=== PATIENT | female | born 1930 | race Caucasian/White ===

== ENCOUNTER 2019-11-24 22:39 | Inpatient (IN) | payer OTHER ==
[~2019-11-24] VITALS: Ht 154.9 cm; Wt 42.7 kg
[~2019-11-24 22:39] MED LIST: ALBU2.5V5 NEB; ALBU2.5V8 INH; HYDR200T5 PO; LEVO50TA5 PO; LOSA-73 PO; MELO7.5T29 PO; PRED1DRO OP
[2019-11-24 22:40] VITALS: BP 135/73
[2019-11-24] MEDS ORDERED: BENZOCAINE ONE 20% MUCOSAL SPRAY. MM (23:00)
--- NOTE | 2019-11-24 23:00 | NUR ---
ADMIT NOTE The patient, FREDY COLIN, 88 y/o, F admitted by SIRI ULLOA III, DO, was given written information regarding hospital policies, unit procedures and contact persons. Patient arrived to unit via EMS from [facility]. Patient afebrile, A&O, and VSS on admission. Patient denies pain at this time. MD notified of patient's arrival and orders received. Patient unable to tolerate NG tube placement at [facility] and MD aware of previous removal of NG tube. MD also notified that subsequent attempts were unsuccessful. Per MD orders, will attempt to place NG tube again. Patient orientated to room, admission packet reviewed and plan of care discussed. All valuables left in room with patient. Patient now in bed, bed in lowest/locked position, and call light within reach.
[2019-11-24] MEDS: IV RINGERS,LACTATED 1000ML 1,000 ML IV SCH (23:17)
--- NOTE | 2019-11-24 23:45 | NUR ---
Unable to insert NG tube in right nare due to resistance. Patient refused NG insertion in left nare claiming she, "...couldn't breath and almost " when it was placed at [facility]. Patient was educated on indication for NG tube and continues to refuse intervention.
[2019-11-25] MEDS ORDERED: hydrALAZINE 20 MG/ML VIAL. IVP PRN (00:45)
[2019-11-25] MEDS: ONDANSETRON PF 4 MG/2 ML VIAL. IVP PRN ×2 (01:45→06:31)
[2019-11-25] MEDS ORDERED: WHEA1POW8 PO (04:16)
[2019-11-25] MEDS ORDERED: OMEP20TA8 PO (04:16)
[2019-11-25] MEDS ORDERED: LEVO50TA5 PO (04:16)
--- NOTE | 2019-11-25 04:31 | NUR ---
Patient c/o nausea and requesting Zofran. This nurse checked eMAR and noted that previous administration of Zofran was not recorded. Zofran pulled from [employer] at approx. 0140 and given at 0145. Medication manually administered on eMAR for administration time of 0145 at this time as initial scan of medication not properly saved at administration time. Patient informed of next availability of medication, no other needs voiced at this time.
[2019-11-25 04:54] LABS: BASO # 0.1 x10^3/uL (0.0-0.2); BASO % 1 % (0-3); EOS # 0.1 x10^3/uL (0.0-0.7); EOS % 1 % (0-3); HEMATOCRIT 33.7 % (36.0-47.0); HEMOGLOBIN 11.6 g/dL (12.0-15.5); LYMPH # 1.8 x10^3/uL (1.0-4.8); LYMPH % 19 % (24-48); MEAN CORPUSCULAR HEMOGLOBIN 32 pg (25-35); MEAN CORPUSCULAR HGB CONC 34 g/dL (31-37); MEAN CORPUSCULAR VOLUME 92 fL (79-100); MONO # 0.6 x10^3/uL (0.0-1.1); MONO % 6 % (0-9); NEUT # 7.1 x10^3/uL (1.8-7.7); NEUT % 74 % (31-73); PLATELET COUNT 315 x10^3/uL (140-400); RED BLOOD COUNT 3.67 x10^6/uL (3.50-5.40); RED CELL DISTRIBUTION WIDTH 14.6 % (11.5-14.5); WHITE BLOOD COUNT 9.6 x10^3/uL (4.0-11.0)
[2019-11-25 05:39] LABS: ALBUMIN/GLOBULIN RATIO 0.8 (1.0-1.7); CALCIUM 8.9 mg/dL (8.5-10.1); CREATININE 2.3 mg/dL (0.6-1.0); GFR 20.1; POTASSIUM 4.9 mmol/L (3.5-5.1); TOTAL BILIRUBIN 0.3 mg/dL (0.2-1.0)
[2019-11-25 07:00] VITALS: BP 160/72
--- NOTE | 2019-11-25 07:48 | RAD ---
PROCEDURE: KUB STUDY DATE: 11/25/2019 CLINICAL INDICATION / HISTORY: Reason: SBO / Spl. Instructions: / History: . TECHNIQUE: Single AP image of the abdomen was obtained. COMPARISON: None FINDINGS: Lung bases show fibrotic changes, partially imaged. Nonspecific paucity of bowel gas is present with formed stool present in the large bowel including the rectal vault which is 5 cm in diameter on this exam, and dense material within multiple small bowel loops. There are gas-filled small bowel loops present that appear dilated in the left upper quadrant up to 4.1 cm in diameter. No free air. No organomegaly or pathologic calcifications are identified. No acute osseous abnormality. IMPRESSION: 1. Nonspecific bowel gas pattern showing possible evidence of low-grade small bowel obstruction. 2. Formed stool in the large bowel could reflect constipation in the appropriate clinical context. Electronically signed by: Marilu Dickinson MD (11/25/2019 7:45 AM) [id number]
[2019-11-25] MEDS: IV RINGERS,LACTATED 1000ML 1,000 ML IV SCH (08:43)
--- NOTE | 2019-11-25 09:29 | PDOC ---
GENERAL General: Patient examined chart reviewed from [facility] [place] [facility]. Patient was transferred there late yesterday with acute abdominal pain that started abruptly in the middle of the night now 24 hours ago. Full history and physical to follow. 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 She works at the [employer] in [place] but has had minimal contact with anyone except the five Sisters with whom she lives during the COVID pandemic. None of the other Sisters have been sick. Patient tells me that she awoke in the middle of the night over 24 hours ago with severe abdominal pain and projectile vomiting. 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 She was transferred to [facility] for surgica l consultation which is pending. Patient was found to have a creatinine of 2.7 on admission which is slightly improved with hydration overnight now at 2.3. She tells me that she has not had any history of renal failure. Dr. Koenig has been consulted and has assistance is appreciated. We will continue aggressive intravenous fluids and n.p.o. status until he can see her. We may need to consult nephrology depending on progress. We will need to hold home meds at this point. I have discussed CODE STATUS and she tells me that she is a full code. Patient speaks [place] but is mostly [place] Rican-speaking. We were able to communicate in my limited Costa Rican and her [place] as well. Problems: (1) Small bowel obstruction (2) Acute renal failure VITAL SIGNS Vital Signs/I&O: Vital Signs Date Time Temp Pulse Resp B/P (MAP) Pulse Ox O2 Delivery O2 Flow Rate FiO2 11/25/19 07:00 98.2 73 18 160/72 (101) 97 Room Air 98.2 l I & O 11/24/19 11/24/19 11/25/19 15:00 23:00 07:00 Intake Total 0 ml Balance 0 ml In general the patient is pleasant alert and oriented x3 no acute distress HEENT exam is unremarkable Chest bilateral equal air entry though diminished throughout inspiratory and expiratory crackles noted at the bilateral bases Heart S1-S2 normal regular rate and rhythm no murmurs or gallops are noted Abdomen is distended bowel sounds are nearly absent she is mildly tender throughout Extremity exam is unremarkable ALLERGIES Allergies: Allergies Coded Allergies Type Severity Reaction Last Updated Verified No Known Drug Allergies 10/26/14 No MEDS Medications: All medications were reviewed in full and may not be reflected on the active medication list in this progress note. Please see the medication administration record for full details. Current Medications Medications (Trade) Dose Ordered Sig/Evelia Route PRN Reason Start Time Stop Time Status Last Admin Dose Admin Ringer's Solution 1,000 ml @ 100 mls/hr Q10H IV 11/24/19 22:43 11/24/19 23:17 Ondansetron HCl (Zofran) 4 mg PRN Q4HRS PRN IVP NAUSEA/VOMITING 11/24/19 22:45 11/25/19 06:31 Benzocaine (Hurricaine One) 1 spray 1X ONCE MM 11/24/19 23:00 11/24/19 23:02 DC 11/24/19 23:17 LAB Lab: Laboratory Tests Test 11/25/19 03:40 White Blood Count 9.6 x10^3/uL (4.0-11.0) Red Blood Count 3.67 x10^6/uL (3.50-5.40) Hemoglobin 11.6 g/dL (12.0-15.5) L Hematocrit 33.7 % (36.0-47.0) L Mean Corpuscular Volume 92 fL (79-100) Mean Corpuscular Hemoglobin 32 pg (25-35) Mean Corpuscular Hemoglobin Concent 34 g/dL (31-37) Red Cell Distribution Width 14.6 % (11.5-14.5) H Platelet Count 315 x10^3/uL (140-400) Neutrophils (%) (Auto) 74 % (31-73) H Lymphocytes (%) (Auto) 19 % (24-48) L Monocytes (%) (Auto) 6 % (0-9) Eosinophils (%) (Auto) 1 % (0-3) Basophils (%) (Auto) 1 % (0-3) Neutrophils # (Auto) 7.1 x10^3/uL (1.8-7.7) Lymphocytes # (Auto) 1.8 x10^3/uL (1.0-4.8) Monocytes # (Auto) 0.6 x10^3/uL (0.0-1.1) Eosinophils # (Auto) 0.1 x10^3/uL (0.0-0.7) Basophils # (Auto) 0.1 x10^3/uL (0.0-0.2) Sodium Level 138 mmol/L (136-145) Potassium Level 4.9 mmol/L (3.5-5.1) Chloride Level 104 mmol/L (98-107) Carbon Dioxide Level 22 mmol/L (21-32) Anion Gap 12 (6-14) Blood Urea Nitrogen 44 mg/dL (7-20) H Creatinine 2.3 mg/dL (0.6-1.0) H Estimated GFR (Cockcroft-Gault) 20.1 BUN/Creatinine Ratio 19 (6-20) Glucose Level 108 mg/dL (70-99) H Calcium Level 8.9 mg/dL (8.5-10.1) Magnesium Level 2.0 mg/dL (1.8-2.4) Total Bilirubin 0.3 mg/dL (0.2-1.0) Aspartate Amino Transferase (AST) 18 U/L (15-37) Alanine Aminotransferase (ALT) 9 U/L (14-59) L Alkaline Phosphatase 94 U/L (46-116) Total Protein 7.0 g/dL (6.4-8.2) Albumin 3.0 g/dL (3.4-5.0) L Albumin/Globulin Ratio 0.8 (1.0-1.7) L Laboratory Tests 11/25/19 03:40 Laboratory Tests 11/25/19 03:40 ASSESSMENT & PLAN A&P Plan as noted above This note was created using Rdio and may have omissions and/or errors due to the nature of 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 Justicifation of Admission Dx: Justifications for Admission: Justification of Admission Dx: Yes ARGELIA MCGOWAN MD Nov 25, 2019 09:29
[2019-11-25] MEDS ORDERED: IV NORMAL SALINE 1000ML BAG 1,000 ML IV ONE (09:30)
[2019-11-25] MEDS: MORPHINE SULFATE 2 MG/ML VIAL. IV PRN ×2 (10:04→22:09)
[2019-11-25 11:00] VITALS: BP 138/70
--- NOTE | 2019-11-25 11:26 | PDOC2 ---
CONSULT Date of Consult Date of Consult DATE: 11/25/19 TIME: 11:22 Reason for Consult Reason for Consult: SBO Referring Physician Referring Physician: Dr. Guevara Identification/Chief Complaint Chief Complaint abd pain Source Source: Chart review, Patient History of Present Illness Reason for Visit: 88 yo F with c/o abd pain. Admitted from [facility]. NGT attempted but self d/c'ed. Pt denies flatus or stool currently. Pain tolerated, although pt not interested in pain meds. Past Medical History Cardiovascular: Hyperlipidemia Pulmonary: Other (pulm fibrosis) Heme/Onc: Anemia NOS Past Surgical History Past Surgical History: Other (pt reports groin hernia repair, lower abd surgery scar c/w hysterectomy and uterus not confidently seen on imaging.) Family History Family History: No Significant Social History No ALCOHOL: none Drugs: None Lives: Roommate Current Medications Current Medications Current Medications Ringer's Solution 1,000 ml @ 100 mls/hr Q10H IV Last administered on 11/24/19at 23:17; Start 11/24/19 at 22:43 Ondansetron HCl (Zofran) 4 mg PRN Q4HRS PRN IVP NAUSEA/VOMITING Last administered on 11/25/19at 06:31; Start 11/24/19 at 22:45 Morphine Sulfate (Morphine Sulfate) 2 mg PRN Q3HRS PRN IV PAIN Last administered on 11/25/19at 10:04; Start 11/24/19 at 22:45 Benzocaine (Hurricaine One) 1 spray 1X ONCE MM Last administered on 11/24/19at 23:17; Start 11/24/19 at 23:00; Stop 11/24/19 at 23:02; Status DC Hydralazine HCl (Apresoline Inj) 5 mg PRN Q6HRS PRN IVP ELEVATED BP, SEE COMMENTS; Start 11/25/19 at 00:45 Sodium Chloride 1,000 ml @ 125 mls/hr 1X ONCE IV Last administered on 11/25/19at 10:03; Start 11/25/19 at 09:30; Stop 11/25/19 at 17:29 Active Scripts Active Reported Omeprazole 20 Mg Tablet.dr 1 Tab PO DAILY Levothyroxine Sodium 50 Mcg Tablet 50 Mcg PO DAILYAC Benefiber (Wheat Dextrin) 1 Each Powd.pack 1 Each PO BID Albuterol Sulfate Neb Soln (Albuterol Sulfate) 2.5 Mg/3 Ml Vial.neb 2.5 Mg NEB Pred Forte (Prednisolone Acetate) 1 Ml Drops.susp 1 Ml OP Proair Hfa Inhaler (Albuterol Sulfate) 8.5 Gm Hfa.aer.ad 1 Puff INH PRN Q6HRS PRN Losartan Potassium 50 Mg Tablet 1 Tab PO DAILY Hydroxychloroquine Sulfate 200 Mg Tablet 200 Mg PO DAILY Levothyroxine Sodium 50 Mcg Tablet 1 Tab PO DAILY Meloxicam 7.5 Mg Tablet 1 Tab PO DAILY Allergies Allergies: Coded Allergies: No Known Drug Allergies (Unverified , 10/26/14) ROS Gastrointestinal: Yes Abdominal Pain Physical Exam General: Alert, Oriented X3, Cooperative, No acute distress HEENT: Atraumatic Lungs: Normal air movement Abdomen: Soft, Other (ND, min TTP, well healed lower midline scar, no palpable masses or hernia) Extremities: No clubbing, No cyanosis Skin: No rashes, No breakdown Psych/Mental Status: Mental status NL, Mood NL Vitals VITALS Vital Signs Date Time Temp Pulse Resp B/P (MAP) Pulse Ox O2 Delivery O2 Flow Rate FiO2 11/25/19 10:34 Room Air 11/25/19 07:00 98.2 73 18 160/72 (101) 97 98.2 Labs Labs Laboratory Tests Test 11/25/19 03:40 White Blood Count 9.6 x10^3/uL (4.0-11.0) Red Blood Count 3.67 x10^6/uL (3.50-5.40) Hemoglobin 11.6 g/dL (12.0-15.5) Hematocrit 33.7 % (36.0-47.0) Mean Corpuscular Volume 92 fL (79-100) Mean Corpuscular Hemoglobin 32 pg (25-35) Mean Corpuscular Hemoglobin Concent 34 g/dL (31-37) Red Cell Distribution Width 14.6 % (11.5-14.5) Platelet Count 315 x10^3/uL (140-400) Neutrophils (%) (Auto) 74 % (31-73) Lymphocytes (%) (Auto) 19 % (24-48) Monocytes (%) (Auto) 6 % (0-9) Eosinophils (%) (Auto) 1 % (0-3) Basophils (%) (Auto) 1 % (0-3) Neutrophils # (Auto) 7.1 x10^3/uL (1.8-7.7) Lymphocytes # (Auto) 1.8 x10^3/uL (1.0-4.8) Monocytes # (Auto) 0.6 x10^3/uL (0.0-1.1) Eosinophils # (Auto) 0.1 x10^3/uL (0.0-0.7) Basophils # (Auto) 0.1 x10^3/uL (0.0-0.2) Sodium Level 138 mmol/L (136-145) Potassium Level 4.9 mmol/L (3.5-5.1) Chloride Level 104 mmol/L (98-107) Carbon Dioxide Level 22 mmol/L (21-32) Anion Gap 12 (6-14) Blood Urea Nitrogen 44 mg/dL (7-20) Creatinine 2.3 mg/dL (0.6-1.0) Estimated GFR (Cockcroft-Gault) 20.1 BUN/Creatinine Ratio 19 (6-20) Glucose Level 108 mg/dL (70-99) Calcium Level 8.9 mg/dL (8.5-10.1) Magnesium Level 2.0 mg/dL (1.8-2.4) Total Bilirubin 0.3 mg/dL (0.2-1.0) Aspartate Amino Transf (AST/SGOT) 18 U/L (15-37) Alanine Aminotransferase (ALT/SGPT) 9 U/L (14-59) Alkaline Phosphatase 94 U/L (46-116) Total Protein 7.0 g/dL (6.4-8.2) Albumin 3.0 g/dL (3.4-5.0) Albumin/Globulin Ratio 0.8 (1.0-1.7) Laboratory Tests Test 11/25/19 03:40 White Blood Count 9.6 x10^3/uL (4.0-11.0) Red Blood Count 3.67 x10^6/uL (3.50-5.40) Hemoglobin 11.6 g/dL (12.0-15.5) Hematocrit 33.7 % (36.0-47.0) Mean Corpuscular Volume 92 fL (79-100) Mean Corpuscular Hemoglobin 32 pg (25-35) Mean Corpuscular Hemoglobin Concent 34 g/dL (31-37) Red Cell Distribution Width 14.6 % (11.5-14.5) Platelet Count 315 x10^3/uL (140-400) Neutrophils (%) (Auto) 74 % (31-73) Lymphocytes (%) (Auto) 19 % (24-48) Monocytes (%) (Auto) 6 % (0-9) Eosinophils (%) (Auto) 1 % (0-3) Basophils (%) (Auto) 1 % (0-3) Neutrophils # (Auto) 7.1 x10^3/uL (1.8-7.7) Lymphocytes # (Auto) 1.8 x10^3/uL (1.0-4.8) Monocytes # (Auto) 0.6 x10^3/uL (0.0-1.1) Eosinophils # (Auto) 0.1 x10^3/uL (0.0-0.7) Basophils # (Auto) 0.1 x10^3/uL (0.0-0.2) Sodium Level 138 mmol/L (136-145) Potassium Level 4.9 mmol/L (3.5-5.1) Chloride Level 104 mmol/L (98-107) Carbon Dioxide Level 22 mmol/L (21-32) Anion Gap 12 (6-14) Blood Urea Nitrogen 44 mg/dL (7-20) Creatinine 2.3 mg/dL (0.6-1.0) Estimated GFR (Cockcroft-Gault) 20.1 BUN/Creatinine Ratio 19 (6-20) Glucose Level 108 mg/dL (70-99) Calcium Level 8.9 mg/dL (8.5-10.1) Magnesium Level 2.0 mg/dL (1.8-2.4) Total Bilirubin 0.3 mg/dL (0.2-1.0) Aspartate Amino Transf (AST/SGOT) 18 U/L (15-37) Alanine Aminotransferase (ALT/SGPT) 9 U/L (14-59) Alkaline Phosphatase 94 U/L (46-116) Total Protein 7.0 g/dL (6.4-8.2) Albumin 3.0 g/dL (3.4-5.0) Albumin/Globulin Ratio 0.8 (1.0-1.7) Images Images Reviewed [facility]'s CT, c/w SBO vs ileus and constipation. Assessment/Plan Assessment/Plan SBO vs ileus cont bowel rest and support follow KUB will attempt to avoid surgery, given pt's overall fragility and malnutrition given BMI Thanks for consult! ANDREW LINTON MD Nov 25, 2019 11:26
[2019-11-25 15:00] VITALS: BP 154/74
[2019-11-25 19:00] VITALS: BP 140/62
--- NOTE | 2019-11-25 19:42 | HP ---
ADMIT DATE: 11/24/2019 HISTORY OF PRESENT ILLNESS: This patient is a dm 88-year-old woman whom I met earlier today. The details of our visit can be found in a progress note dated earlier this morning. 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 She enjoys good health for her advanced years. She continues to work at the [email or web address] in [place], but has had minimal contact with anyone except the 5 nuns with whom she lives during this COVID pandemic. None of the other Sisters have been ill. The patient told me that she awoke in the middle of the night over 24 hours ago with severe mid abdominal pain and projectile vomiting. She presented to the [facility] Emergency Department for evaluation and was found to have small bowel obstruction. She was transferred to [facility] late yesterday evening for surgical consultation. That was pending at the time of our visit earlier today. Earlier today, she was having quite a bit of abdominal bloating and discomfort, but otherwise did feel that she was making some improvement. She was hoping to get away without NG tube decompression. The patient was also found on admission to have acute renal failure with a creatinine of 2.7, which had improved overnight to 2.3 with intravenous hydration. The patient denied any history of renal failure. The patient tells me that prior to the last 24-48 hours, she was feeling at her vigorous baseline. She follows with a physician classroom assistant, Mili Jang, with [facility] in [place]. She sees her regularly and has labs done routinely. REVIEW OF SYSTEMS: The patient denied any urinary changes, fever, chills, cough, congestion, chest pain, palpitations, or shortness of breath. All other systems reviewed and negative. PAST MEDICAL HISTORY: 1. Inflammatory arthritis. 2. Hypothyroidism. 3. Hypertension. 4. Gastroesophageal reflux disease. The patient denies any history of abdominal surgeries or acute abdominal complaints at all. MEDICATIONS: Please see the medication reconciliation form. 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 She does not smoke, take alcohol, or illicit drugs. FAMILY HISTORY: Reviewed in full and noncontributory to the present illness. PHYSICAL EXAMINATION: Including vital signs review can be found in my progress note dated earlier today. LABORATORY DATA: Lab review as well can be found in that same note. Creatinine this morning notably was 2.3 and will be rechecked in the morning. ASSESSMENT AND PLAN: This is an 88-year-old woman with abrupt onset of abdominal pain, found to have small bowel obstruction and on the [facility] CAT scan image, question of superior mesenteric artery stenosis. She also was noted to have significant coronary calcifications. The vascular findings are unlikely to be related to her acute presentation, though certainly need to be addressed. We will hold her oral home medications while she is on a nothing by mouth status. She may have SCDs for DVT prophylaxis. Inpatient status is most appropriate as we anticipate a length of stay of at least 2-3 midnights while we work this through. Dr. Hadley has visited with the patient since my initial visit and his assistance is appreciated. Hopefully, we will be able to avoid surgical intervention. ARGELIA MCGOWAN MD DR: CYNTHIA/lou JOB#: [id number] / [id number] MILI Sousa
[2019-11-25] MEDS: IV NORMAL SALINE 1000ML BAG 1,000 ML IV SCH (22:09)
[2019-11-25 23:00] VITALS: BP 133/65
[2019-11-26] MEDS: MORPHINE SULFATE 2 MG/ML VIAL. IV PRN ×4 (01:48→21:08)
[2019-11-26 03:00] VITALS: BP 141/63
[2019-11-26 04:57] LABS: BASO # 0.1 x10^3/uL (0.0-0.2); BASO % 1 % (0-3); EOS # 0.1 x10^3/uL (0.0-0.7); EOS % 1 % (0-3); HEMATOCRIT 31.6 % (36.0-47.0); HEMOGLOBIN 10.6 g/dL (12.0-15.5); LYMPH # 2.3 x10^3/uL (1.0-4.8); LYMPH % 25 % (24-48); MEAN CORPUSCULAR HEMOGLOBIN 31 pg (25-35); MEAN CORPUSCULAR HGB CONC 34 g/dL (31-37); MEAN CORPUSCULAR VOLUME 94 fL (79-100); MONO # 0.5 x10^3/uL (0.0-1.1); MONO % 6 % (0-9); NEUT # 6.3 x10^3/uL (1.8-7.7); NEUT % 68 % (31-73); PLATELET COUNT 288 x10^3/uL (140-400); RED BLOOD COUNT 3.38 x10^6/uL (3.50-5.40); RED CELL DISTRIBUTION WIDTH 14.9 % (11.5-14.5); WHITE BLOOD COUNT 9.4 x10^3/uL (4.0-11.0)
[2019-11-26 05:21] LABS: ALBUMIN 2.5 g/dL (3.4-5.0); ALBUMIN/GLOBULIN RATIO 0.7 (1.0-1.7); CALCIUM 8.3 mg/dL (8.5-10.1); CREATININE 2.2 mg/dL (0.6-1.0); GFR 21.1; TOTAL BILIRUBIN 0.3 mg/dL (0.2-1.0); TOTAL PROTEIN 6.1 g/dL (6.4-8.2)
[2019-11-26] MEDS: IV NORMAL SALINE 1000ML BAG 1,000 ML IV SCH ×2 (05:58→15:30)
[2019-11-26 07:00] VITALS: BP 121/56
--- NOTE | 2019-11-26 09:21 | RAD ---
EXAM: KUB, CHEST PA LATERAL INDICATION: Reason: SBO / Spl. Instructions: / History: . TECHNIQUE: PA and lateral views COMPARISON: Portable chest of 10/26/2014 FINDINGS: The heart size is normal. Great vessels show aortic tortuosity and calcifications. There is no hilar or mediastinal mass. Lungs show interval worsening of coarse reticular densities in the bilateral lower lobes, more conspicuous on the right. There is no pleural effusion or pneumothorax. Bones show osteopenia and degenerative changes in the spine as well as a suture anchor in the right humeral head. Included upper abdomen shows dynamic air-fluid levels in gas-filled distended small bowel loops in the left upper quadrant primarily. IMPRESSION: Worsening bibasilar pulmonary fibrotic changes, more on the right than on the left. Additional findings of small bowel obstruction in the upper abdomen. PROCEDURE: KUB, CHEST PA LATERAL STUDY DATE: 11/26/2019 CLINICAL INDICATION / HISTORY: Reason: SBO / Spl. Instructions: / History: . TECHNIQUE: Single supine AP image of the abdomen was obtained. COMPARISON: 11/25/2019 abdomen x-ray. FINDINGS: The lung bases are clear. There persists multiple small bowel loops containing dense material, and gas-filled mildly distended small bowel loops in the left upper quadrant abdomen. Formed stool in the rectal vault. No free air. No organomegaly or pathologic calcifications are identified. No acute osseous abnormality. IMPRESSION: Findings of small bowel obstruction without perforation, unchanged in the interval. Electronically signed by: Marilu Dickinson MD (11/26/2019 9:18 AM) [id number]
--- NOTE | 2019-11-26 09:44 | PDOC ---
PROGRESS NOTES Chief Complaint Chief Complaint A/P: SBO - cont NPO, pain control IV, f/u surgery recs BRITTANI - vasomotor nephropathy Severe protein calorie malnutrition Hypothyroidism - IV HTN GERD Coronary artery calcification Bibasilar pulmonary fibrotic changes on chest x-ray FEN - NPO PPX - Lovenox FULL CODE Dispo - inpatient History of Present Illness History of Present Illness Sr Al is an 88 yo Sister of Idania and lives with her community in [place] w/ PMHx GERD, Hypothyroidism, HTN. She awoke in the middle of the night 11/24/2019 with severe mid abdominal pain and projectile vomiting. She presented to the [facility] Emergency Department for evaluation and was found to have small bowel obstruction and transferred to . Creatinine noted 2.7, which had improved overnight to 2.3 with intravenous hydration. The patient denied any history of renal failure. CR improved to 2.2. No vomiting overnight still with pain states she passed gas. Now has some left-sided back pain was not able to sleep well. Afebrile no shortness of breath or cough. KUB with SBO. CXR with worsening basilar fibrotic changes. Vitals Vitals Vital Signs Date Time Temp Pulse Resp B/P (MAP) Pulse Ox O2 Delivery O2 Flow Rate FiO2 11/26/19 09:31 Room Air 11/26/19 07:00 98.1 80 18 121/56 (77) 96 98.1 Physical Exam General: Alert, Oriented X3, Cooperative, No acute distress Heart: Regular rate, Normal S1, Normal S2 Lungs: Clear Abdomen: Soft, Other (ND, min TTP, well healed lower midline scar, no palpable masses or hernia) Extremities: No clubbing, No cyanosis Skin: No rashes, No breakdown Labs LABS Laboratory Tests Test 11/26/19 04:10 White Blood Count 9.4 x10^3/uL (4.0-11.0) Red Blood Count 3.38 x10^6/uL (3.50-5.40) Hemoglobin 10.6 g/dL (12.0-15.5) Hematocrit 31.6 % (36.0-47.0) Mean Corpuscular Volume 94 fL (79-100) Mean Corpuscular Hemoglobin 31 pg (25-35) Mean Corpuscular Hemoglobin Concent 34 g/dL (31-37) Red Cell Distribution Width 14.9 % (11.5-14.5) Platelet Count 288 x10^3/uL (140-400) Neutrophils (%) (Auto) 68 % (31-73) Lymphocytes (%) (Auto) 25 % (24-48) Monocytes (%) (Auto) 6 % (0-9) Eosinophils (%) (Auto) 1 % (0-3) Basophils (%) (Auto) 1 % (0-3) Neutrophils # (Auto) 6.3 x10^3/uL (1.8-7.7) Lymphocytes # (Auto) 2.3 x10^3/uL (1.0-4.8) Monocytes # (Auto) 0.5 x10^3/uL (0.0-1.1) Eosinophils # (Auto) 0.1 x10^3/uL (0.0-0.7) Basophils # (Auto) 0.1 x10^3/uL (0.0-0.2) Sodium Level 141 mmol/L (136-145) Potassium Level 5.0 mmol/L (3.5-5.1) Chloride Level 107 mmol/L (98-107) Carbon Dioxide Level 18 mmol/L (21-32) Anion Gap 16 (6-14) Blood Urea Nitrogen 43 mg/dL (7-20) Creatinine 2.2 mg/dL (0.6-1.0) Estimated GFR (Cockcroft-Gault) 21.1 BUN/Creatinine Ratio 20 (6-20) Glucose Level 58 mg/dL (70-99) Calcium Level 8.3 mg/dL (8.5-10.1) Total Bilirubin 0.3 mg/dL (0.2-1.0) Aspartate Amino Transf (AST/SGOT) 21 U/L (15-37) Alanine Aminotransferase (ALT/SGPT) 8 U/L (14-59) Alkaline Phosphatase 79 U/L (46-116) Total Protein 6.1 g/dL (6.4-8.2) Albumin 2.5 g/dL (3.4-5.0) Albumin/Globulin Ratio 0.7 (1.0-1.7) Comment Review of Relevant I have reviewed the following items mercedes (where applicable) has been applied. Labs Laboratory Tests Test 11/25/19 03:40 7/12/20 04:10 White Blood Count 9.6 x10^3/uL (4.0-11.0) 9.4 x10^3/uL (4.0-11.0) Red Blood Count 3.67 x10^6/uL (3.50-5.40) 3.38 x10^6/uL (3.50-5.40) Hemoglobin 11.6 g/dL (12.0-15.5) 10.6 g/dL (12.0-15.5) Hematocrit 33.7 % (36.0-47.0) 31.6 % (36.0-47.0) Mean Corpuscular Volume 92 fL (79-100) 94 fL (79-100) Mean Corpuscular Hemoglobin 32 pg (25-35) 31 pg (25-35) Mean Corpuscular Hemoglobin Concent 34 g/dL (31-37) 34 g/dL (31-37) Red Cell Distribution Width 14.6 % (11.5-14.5) 14.9 % (11.5-14.5) Platelet Count 315 x10^3/uL (140-400) 288 x10^3/uL (140-400) Neutrophils (%) (Auto) 74 % (31-73) 68 % (31-73) Lymphocytes (%) (Auto) 19 % (24-48) 25 % (24-48) Monocytes (%) (Auto) 6 % (0-9) 6 % (0-9) Eosinophils (%) (Auto) 1 % (0-3) 1 % (0-3) Basophils (%) (Auto) 1 % (0-3) 1 % (0-3) Neutrophils # (Auto) 7.1 x10^3/uL (1.8-7.7) 6.3 x10^3/uL (1.8-7.7) Lymphocytes # (Auto) 1.8 x10^3/uL (1.0-4.8) 2.3 x10^3/uL (1.0-4.8) Monocytes # (Auto) 0.6 x10^3/uL (0.0-1.1) 0.5 x10^3/uL (0.0-1.1) Eosinophils # (Auto) 0.1 x10^3/uL (0.0-0.7) 0.1 x10^3/uL (0.0-0.7) Basophils # (Auto) 0.1 x10^3/uL (0.0-0.2) 0.1 x10^3/uL (0.0-0.2) Sodium Level 138 mmol/L (136-145) 141 mmol/L (136-145) Potassium Level 4.9 mmol/L (3.5-5.1) 5.0 mmol/L (3.5-5.1) Chloride Level 104 mmol/L (98-107) 107 mmol/L (98-107) Carbon Dioxide Level 22 mmol/L (21-32) 18 mmol/L (21-32) Anion Gap 12 (6-14) 16 (6-14) Blood Urea Nitrogen 44 mg/dL (7-20) 43 mg/dL (7-20) Creatinine 2.3 mg/dL (0.6-1.0) 2.2 mg/dL (0.6-1.0) Estimated GFR (Cockcroft-Gault) 20.1 21.1 BUN/Creatinine Ratio 19 (6-20) 20 (6-20) Glucose Level 108 mg/dL (70-99) 58 mg/dL (70-99) Calcium Level 8.9 mg/dL (8.5-10.1) 8.3 mg/dL (8.5-10.1) Magnesium Level 2.0 mg/dL (1.8-2.4) Total Bilirubin 0.3 mg/dL (0.2-1.0) 0.3 mg/dL (0.2-1.0) Aspartate Amino Transf (AST/SGOT) 18 U/L (15-37) 21 U/L (15-37) Alanine Aminotransferase (ALT/SGPT) 9 U/L (14-59) 8 U/L (14-59) Alkaline Phosphatase 94 U/L (46-116) 79 U/L (46-116) Total Protein 7.0 g/dL (6.4-8.2) 6.1 g/dL (6.4-8.2) Albumin 3.0 g/dL (3.4-5.0) 2.5 g/dL (3.4-5.0) Albumin/Globulin Ratio 0.8 (1.0-1.7) 0.7 (1.0-1.7) Laboratory Tests Test 11/26/19 04:10 White Blood Count 9.4 x10^3/uL (4.0-11.0) Red Blood Count 3.38 x10^6/uL (3.50-5.40) Hemoglobin 10.6 g/dL (12.0-15.5) Hematocrit 31.6 % (36.0-47.0) Mean Corpuscular Volume 94 fL (79-100) Mean Corpuscular Hemoglobin 31 pg (25-35) Mean Corpuscular Hemoglobin Concent 34 g/dL (31-37) Red Cell Distribution Width 14.9 % (11.5-14.5) Platelet Count 288 x10^3/uL (140-400) Neutrophils (%) (Auto) 68 % (31-73) Lymphocytes (%) (Auto) 25 % (24-48) Monocytes (%) (Auto) 6 % (0-9) Eosinophils (%) (Auto) 1 % (0-3) Basophils (%) (Auto) 1 % (0-3) Neutrophils # (Auto) 6.3 x10^3/uL (1.8-7.7) Lymphocytes # (Auto) 2.3 x10^3/uL (1.0-4.8) Monocytes # (Auto) 0.5 x10^3/uL (0.0-1.1) Eosinophils # (Auto) 0.1 x10^3/uL (0.0-0.7) Basophils # (Auto) 0.1 x10^3/uL (0.0-0.2) Sodium Level 141 mmol/L (136-145) Potassium Level 5.0 mmol/L (3.5-5.1) Chloride Level 107 mmol/L (98-107) Carbon Dioxide Level 18 mmol/L (21-32) Anion Gap 16 (6-14) Blood Urea Nitrogen 43 mg/dL (7-20) Creatinine 2.2 mg/dL (0.6-1.0) Estimated GFR (Cockcroft-Gault) 21.1 BUN/Creatinine Ratio 20 (6-20) Glucose Level 58 mg/dL (70-99) Calcium Level 8.3 mg/dL (8.5-10.1) Total Bilirubin 0.3 mg/dL (0.2-1.0) Aspartate Amino Transf (AST/SGOT) 21 U/L (15-37) Alanine Aminotransferase (ALT/SGPT) 8 U/L (14-59) Alkaline Phosphatase 79 U/L (46-116) Total Protein 6.1 g/dL (6.4-8.2) Albumin 2.5 g/dL (3.4-5.0) Albumin/Globulin Ratio 0.7 (1.0-1.7) Medications Current Medications Ringer's Solution 1,000 ml @ 100 mls/hr Q10H IV Last administered on 11/24/19at 23:17; Start 11/24/19 at 22:43; Stop 11/25/19 at 19:26; Status DC Ondansetron HCl (Zofran) 4 mg PRN Q4HRS PRN IVP NAUSEA/VOMITING Last administered on 11/25/19at 06:31; Start 11/24/19 at 22:45 Morphine Sulfate (Morphine Sulfate) 2 mg PRN Q3HRS PRN IV PAIN Last administered on 11/26/19at 09:31; Start 11/24/19 at 22:45 Benzocaine (Hurricaine One) 1 spray 1X ONCE MM Last administered on 11/24/19at 23:17; Start 11/24/19 at 23:00; Stop 11/24/19 at 23:02; Status DC Hydralazine HCl (Apresoline Inj) 5 mg PRN Q6HRS PRN IVP ELEVATED BP, SEE COMMENTS; Start 11/25/19 at 00:45 Sodium Chloride 1,000 ml @ 125 mls/hr 1X ONCE IV Last administered on 11/25/19at 10:03; Start 11/25/19 at 09:30; Stop 11/25/19 at 17:29; Status DC Sodium Chloride 1,000 ml @ 100 mls/hr Q10H IV Last administered on 11/26/19at 05:58; Start 11/25/19 at 19:30 Lidocaine (Lidoderm) 1 patch DAILY TD ; Start 11/26/19 at 09:45; Status UNV Miscellaneous (Lidoderm Patch Removal) 1 ea QHS MC ; Start 11/26/19 at 21:00; Status UNV Active Scripts Active Reported Omeprazole 20 Mg Tablet.dr 1 Tab PO DAILY Levothyroxine Sodium 50 Mcg Tablet 50 Mcg PO DAILYAC Benefiber (Wheat Dextrin) 1 Each Powd.pack 1 Each PO BID Albuterol Sulfate Neb Soln (Albuterol Sulfate) 2.5 Mg/3 Ml Vial.neb 2.5 Mg NEB Pred Forte (Prednisolone Acetate) 1 Ml Drops.susp 1 Ml OP Proair Hfa Inhaler (Albuterol Sulfate) 8.5 Gm Hfa.aer.ad 1 Puff INH PRN Q6HRS PRN Losartan Potassium 50 Mg Tablet 1 Tab PO DAILY Hydroxychloroquine Sulfate 200 Mg Tablet 200 Mg PO DAILY Levothyroxine Sodium 50 Mcg Tablet 1 Tab PO DAILY Meloxicam 7.5 Mg Tablet 1 Tab PO DAILY Vitals/I & O Vital Sign - Last 24 Hours 11/25/19 11/25/19 11/25/19 11/25/19 10:04 10:34 11:00 15:00 Temp 97.9 97.7 97.9 97.7 Pulse 69 72 Resp 18 18 B/P (MAP) 138/70 (92) 154/74 (100) Pulse Ox 98 98 O2 Delivery Room Air Room Air Room Air Room Air 11/25/19 11/25/19 11/25/19 11/25/19 19:00 20:00 22:09 22:39 Temp 98.6 98.6 Pulse 80 Resp 18 B/P (MAP) 140/62 (88) Pulse Ox 95 O2 Delivery Room Air Room Air Room Air Room Air 11/25/19 11/26/19 11/26/19 11/26/19 23:00 01:48 02:18 03:00 Temp 98.5 98.7 98.5 98.7 Pulse 87 73 Resp 18 18 B/P (MAP) 133/65 (87) 141/63 (89) Pulse Ox 95 94 O2 Delivery Room Air Room Air Room Air Room Air 11/26/19 11/26/19 11/26/19 11/26/19 05:58 06:28 07:00 09:31 Temp 98.1 98.1 Pulse 80 Resp 18 B/P (MAP) 121/56 (77) Pulse Ox 96 O2 Delivery Room Air Room Air Room Air Room Air Intake and Output 11/25/19 11/25/19 11/26/19 15:00 23:00 07:00 Intake Total 0 ml Balance 0 ml Justicifation of Admission Dx: Justifications for Admission: Justification of Admission Dx: Yes VANITA LU MD Nov 26, 2019 09:44
[2019-11-26] MEDS ORDERED: ALBUTEROL SULFATE 2.5 MG/3 ML NEBU. INH PRN (09:45)
[2019-11-26 11:00] VITALS: BP 120/56
--- NOTE | 2019-11-26 11:50 | PDOC ---
SURGICAL PROGRESS NOTE Subjective Pt feels better, no N/V today, mild pain left upper flank Vital Signs Vital Signs Date Time Temp Pulse Resp B/P (MAP) Pulse Ox O2 Delivery O2 Flow Rate FiO2 11/26/19 11:00 98.2 80 18 120/56 (77) 96 Room Air 98.2 I&O Intake and Output 11/26/19 07:00 Intake Total 0 ml Balance 0 ml Intake Oral 0 ml # Voids 3 General: Alert, Oriented X3, Cooperative, No acute distress Abdomen: Soft, No tenderness Labs Laboratory Tests Test 11/25/19 03:40 11/26/19 04:10 White Blood Count 9.6 x10^3/uL (4.0-11.0) 9.4 x10^3/uL (4.0-11.0) Red Blood Count 3.67 x10^6/uL (3.50-5.40) 3.38 x10^6/uL (3.50-5.40) Hemoglobin 11.6 g/dL (12.0-15.5) 10.6 g/dL (12.0-15.5) Hematocrit 33.7 % (36.0-47.0) 31.6 % (36.0-47.0) Mean Corpuscular Volume 92 fL (79-100) 94 fL (79-100) Mean Corpuscular Hemoglobin 32 pg (25-35) 31 pg (25-35) Mean Corpuscular Hemoglobin Concent 34 g/dL (31-37) 34 g/dL (31-37) Red Cell Distribution Width 14.6 % (11.5-14.5) 14.9 % (11.5-14.5) Platelet Count 315 x10^3/uL (140-400) 288 x10^3/uL (140-400) Neutrophils (%) (Auto) 74 % (31-73) 68 % (31-73) Lymphocytes (%) (Auto) 19 % (24-48) 25 % (24-48) Monocytes (%) (Auto) 6 % (0-9) 6 % (0-9) Eosinophils (%) (Auto) 1 % (0-3) 1 % (0-3) Basophils (%) (Auto) 1 % (0-3) 1 % (0-3) Neutrophils # (Auto) 7.1 x10^3/uL (1.8-7.7) 6.3 x10^3/uL (1.8-7.7) Lymphocytes # (Auto) 1.8 x10^3/uL (1.0-4.8) 2.3 x10^3/uL (1.0-4.8) Monocytes # (Auto) 0.6 x10^3/uL (0.0-1.1) 0.5 x10^3/uL (0.0-1.1) Eosinophils # (Auto) 0.1 x10^3/uL (0.0-0.7) 0.1 x10^3/uL (0.0-0.7) Basophils # (Auto) 0.1 x10^3/uL (0.0-0.2) 0.1 x10^3/uL (0.0-0.2) Sodium Level 138 mmol/L (136-145) 141 mmol/L (136-145) Potassium Level 4.9 mmol/L (3.5-5.1) 5.0 mmol/L (3.5-5.1) Chloride Level 104 mmol/L (98-107) 107 mmol/L (98-107) Carbon Dioxide Level 22 mmol/L (21-32) 18 mmol/L (21-32) Anion Gap 12 (6-14) 16 (6-14) Blood Urea Nitrogen 44 mg/dL (7-20) 43 mg/dL (7-20) Creatinine 2.3 mg/dL (0.6-1.0) 2.2 mg/dL (0.6-1.0) Estimated GFR (Cockcroft-Gault) 20.1 21.1 BUN/Creatinine Ratio 19 (6-20) 20 (6-20) Glucose Level 108 mg/dL (70-99) 58 mg/dL (70-99) Calcium Level 8.9 mg/dL (8.5-10.1) 8.3 mg/dL (8.5-10.1) Magnesium Level 2.0 mg/dL (1.8-2.4) Total Bilirubin 0.3 mg/dL (0.2-1.0) 0.3 mg/dL (0.2-1.0) Aspartate Amino Transf (AST/SGOT) 18 U/L (15-37) 21 U/L (15-37) Alanine Aminotransferase (ALT/SGPT) 9 U/L (14-59) 8 U/L (14-59) Alkaline Phosphatase 94 U/L (46-116) 79 U/L (46-116) Total Protein 7.0 g/dL (6.4-8.2) 6.1 g/dL (6.4-8.2) Albumin 3.0 g/dL (3.4-5.0) 2.5 g/dL (3.4-5.0) Albumin/Globulin Ratio 0.8 (1.0-1.7) 0.7 (1.0-1.7) Laboratory Tests Test 11/26/19 04:10 White Blood Count 9.4 x10^3/uL (4.0-11.0) Red Blood Count 3.38 x10^6/uL (3.50-5.40) Hemoglobin 10.6 g/dL (12.0-15.5) Hematocrit 31.6 % (36.0-47.0) Mean Corpuscular Volume 94 fL (79-100) Mean Corpuscular Hemoglobin 31 pg (25-35) Mean Corpuscular Hemoglobin Concent 34 g/dL (31-37) Red Cell Distribution Width 14.9 % (11.5-14.5) Platelet Count 288 x10^3/uL (140-400) Neutrophils (%) (Auto) 68 % (31-73) Lymphocytes (%) (Auto) 25 % (24-48) Monocytes (%) (Auto) 6 % (0-9) Eosinophils (%) (Auto) 1 % (0-3) Basophils (%) (Auto) 1 % (0-3) Neutrophils # (Auto) 6.3 x10^3/uL (1.8-7.7) Lymphocytes # (Auto) 2.3 x10^3/uL (1.0-4.8) Monocytes # (Auto) 0.5 x10^3/uL (0.0-1.1) Eosinophils # (Auto) 0.1 x10^3/uL (0.0-0.7) Basophils # (Auto) 0.1 x10^3/uL (0.0-0.2) Sodium Level 141 mmol/L (136-145) Potassium Level 5.0 mmol/L (3.5-5.1) Chloride Level 107 mmol/L (98-107) Carbon Dioxide Level 18 mmol/L (21-32) Anion Gap 16 (6-14) Blood Urea Nitrogen 43 mg/dL (7-20) Creatinine 2.2 mg/dL (0.6-1.0) Estimated GFR (Cockcroft-Gault) 21.1 BUN/Creatinine Ratio 20 (6-20) Glucose Level 58 mg/dL (70-99) Calcium Level 8.3 mg/dL (8.5-10.1) Total Bilirubin 0.3 mg/dL (0.2-1.0) Aspartate Amino Transf (AST/SGOT) 21 U/L (15-37) Alanine Aminotransferase (ALT/SGPT) 8 U/L (14-59) Alkaline Phosphatase 79 U/L (46-116) Total Protein 6.1 g/dL (6.4-8.2) Albumin 2.5 g/dL (3.4-5.0) Albumin/Globulin Ratio 0.7 (1.0-1.7) I have reviewed the following KUB-persistent SBO Assessment/Plan SBO will plan SBFT with gastrograffin in AM Justicifation of Admission Dx: Justifications for Admission: Justification of Admission Dx: Yes ANDREW LINTON MD Nov 26, 2019 11:50
[2019-11-26] MEDS: LEVOTHYROXINE SODIUM INJ 50 MCG in NORMAL SALINE 5 ML IV SCH (11:56)
[2019-11-26] MEDS: HEPARIN for SUB-Q USE 5,000 UNIT/ML VIAL. SQ SCH ×3 (11:56→21:12)
[2019-11-26] MEDS: LIDOCAINE (700MG/PATCH) PATCH. TD SCH (11:56)
[2019-11-26 15:00] VITALS: BP 118/52
[2019-11-26 19:00] VITALS: BP 118/60
[2019-11-26] MEDS: PATCH REMOVAL. MC SCH (21:00)
[2019-11-26] MEDS: ONDANSETRON PF 4 MG/2 ML VIAL. IVP PRN (21:07)
[2019-11-26 23:00] VITALS: BP 119/53
[2019-11-27 03:00] VITALS: BP 158/78
[2019-11-27] MEDS: IV NORMAL SALINE 1000ML BAG 1,000 ML IV SCH ×3 (03:59→21:19)
[2019-11-27 07:00] VITALS: BP 103/42
[2019-11-27] MEDS ORDERED: IOHEXOL 300 MG/ML 100ML VIAL. PO ONE (07:00)
[2019-11-27] MEDS ORDERED: CONTRAST GIVEN. MC PRN (07:00)
[2019-11-27] MEDS: MORPHINE SULFATE 2 MG/ML VIAL. IV PRN (07:13)
[2019-11-27] MEDS: HEPARIN for SUB-Q USE 5,000 UNIT/ML VIAL. SQ SCH ×3 (07:18→21:26)
--- NOTE | 2019-11-27 08:31 | PDOC ---
PROGRESS NOTES Chief Complaint Chief Complaint impression SBO - cont NPO, pain control IV, f/u surgery recs BRITTANI - vasomotor nephropathy Severe protein calorie malnutrition Hypothyroidism - IV HTN GERD Coronary artery calcification Bibasilar pulmonary fibrotic changes on chest x-ray PLAN FEN - NPO PPX - Lovenox FULL CODE Dispo - inpatient small bowel series 11/26 D/W RN History of Present Illness History of Present Illness Sr Al is an 88 yo Sister of Idania and lives with her community in [place] w/ PMHx GERD, Hypothyroidism, HTN. She awoke in the middle of the night 11/24/2019 with severe mid abdominal pain and projectile vomiting. She presented to the [facility] Emergency Department for evaluation and was found to have small bowel obstruction and transferred to [facility]. Creatinine noted 2.7, which had improved overnight to 2.3 with intravenous hydration. The patient denied any history of renal failure. CR improved to 2.2. No vomiting overnight still with pain states she passed gas. Now has some left-sided back pain was not able to sleep well. Afebrile no shortness of breath or cough. KUB with SBO. CXR with worsening basilar fibrotic changes. Vitals Vitals Vital Signs Date Time Temp Pulse Resp B/P (MAP) Pulse Ox O2 Delivery O2 Flow Rate FiO2 11/27/19 07:43 Room Air 11/27/19 03:00 99.5 97 18 158/78 (104) 100 99.5 Physical Exam General: Alert, Oriented X3, Cooperative, No acute distress Heart: Regular rate, Normal S1, Normal S2 Lungs: Clear Abdomen: Soft, No tenderness Extremities: No clubbing, No cyanosis Skin: No rashes, No breakdown Labs LABS Lungs show interval worsening of coarse reticular densities in the bilateral lower lobes, more conspicuous on the right. There is no pleural effusion or pneumothorax. Bones show osteopenia and degenerative changes in the spine as well as a suture anchor in the right humeral head. Included upper abdomen shows dynamic air-fluid levels in gas-filled distended small bowel loops in the left upper quadrant primarily. IMPRESSION: Worsening bibasilar pulmonary fibrotic changes, more on the right than on the left. Additional findings of small bowel obstruction in the upper abdomen. PROCEDURE: KUB, CHEST PA LATERAL STUDY DATE: 11/26/2019 CLINICAL INDICATION / HISTORY: Reason: SBO / Spl. Instructions: / History: . TECHNIQUE: Single supine AP image of the abdomen was obtained. COMPARISON: 11/25/2019 abdomen x-ray. FINDINGS: The lung bases are clear. There persists multiple small bowel loops containing dense material, and gas-filled mildly distended small bowel loops in the left upper quadrant abdomen. Formed stool in the rectal vault. No free air. No organomegaly or pathologic calcifications are identified. No acute osseous abnormality. IMPRESSION: Findings of small bowel obstruction without perforation, unchanged in the interval. Electronically signed by: Carmen Dickinson MD (11/26/2019 9:18 AM) [id number] DICTATED and SIGNED BY: CARMEN DICKINSON MD DATE: 11/26/19917 Comment Review of Relevant I have reviewed the following items mercedes (where applicable) has been applied. Labs Laboratory Tests Test 11/26/19 04:10 White Blood Count 9.4 x10^3/uL (4.0-11.0) Red Blood Count 3.38 x10^6/uL (3.50-5.40) Hemoglobin 10.6 g/dL (12.0-15.5) Hematocrit 31.6 % (36.0-47.0) Mean Corpuscular Volume 94 fL (79-100) Mean Corpuscular Hemoglobin 31 pg (25-35) Mean Corpuscular Hemoglobin Concent 34 g/dL (31-37) Red Cell Distribution Width 14.9 % (11.5-14.5) Platelet Count 288 x10^3/uL (140-400) Neutrophils (%) (Auto) 68 % (31-73) Lymphocytes (%) (Auto) 25 % (24-48) Monocytes (%) (Auto) 6 % (0-9) Eosinophils (%) (Auto) 1 % (0-3) Basophils (%) (Auto) 1 % (0-3) Neutrophils # (Auto) 6.3 x10^3/uL (1.8-7.7) Lymphocytes # (Auto) 2.3 x10^3/uL (1.0-4.8) Monocytes # (Auto) 0.5 x10^3/uL (0.0-1.1) Eosinophils # (Auto) 0.1 x10^3/uL (0.0-0.7) Basophils # (Auto) 0.1 x10^3/uL (0.0-0.2) Sodium Level 141 mmol/L (136-145) Potassium Level 5.0 mmol/L (3.5-5.1) Chloride Level 107 mmol/L (98-107) Carbon Dioxide Level 18 mmol/L (21-32) Anion Gap 16 (6-14) Blood Urea Nitrogen 43 mg/dL (7-20) Creatinine 2.2 mg/dL (0.6-1.0) Estimated GFR (Cockcroft-Gault) 21.1 BUN/Creatinine Ratio 20 (6-20) Glucose Level 58 mg/dL (70-99) Calcium Level 8.3 mg/dL (8.5-10.1) Total Bilirubin 0.3 mg/dL (0.2-1.0) Aspartate Amino Transf (AST/SGOT) 21 U/L (15-37) Alanine Aminotransferase (ALT/SGPT) 8 U/L (14-59) Alkaline Phosphatase 79 U/L (46-116) Total Protein 6.1 g/dL (6.4-8.2) Albumin 2.5 g/dL (3.4-5.0) Albumin/Globulin Ratio 0.7 (1.0-1.7) Medications Current Medications Ringer's Solution 1,000 ml @ 100 mls/hr Q10H IV Last administered on 11/24/19at 23:17; Start 11/24/19 at 22:43; Stop 11/25/19 at 19:26; Status DC Ondansetron HCl (Zofran) 4 mg PRN Q4HRS PRN IVP NAUSEA/VOMITING Last administered on 11/26/19at 21:07; Start 11/24/19 at 22:45 Morphine Sulfate (Morphine Sulfate) 2 mg PRN Q3HRS PRN IV PAIN Last administered on 11/27/19at 07:13; Start 11/24/19 at 22:45 Benzocaine (Hurricaine One) 1 spray 1X ONCE MM Last administered on 11/24/19at 23:17; Start 11/24/19 at 23:00; Stop 11/24/19 at 23:02; Status DC Hydralazine HCl (Apresoline Inj) 5 mg PRN Q6HRS PRN IVP ELEVATED BP, SEE COMMENTS; Start 11/25/19 at 00:45 Sodium Chloride 1,000 ml @ 125 mls/hr 1X ONCE IV Last administered on 11/25/19at 10:03; Start 11/25/19 at 09:30; Stop 11/25/19 at 17:29; Status DC Sodium Chloride 1,000 ml @ 100 mls/hr Q10H IV Last administered on 11/27/19at 03:59; Start 11/25/19 at 19:30 Lidocaine (Lidoderm) 1 patch DAILY TD Last administered on 11/26/19at 11:56; Start 11/26/19 at 09:45 Miscellaneous (Lidoderm Patch Removal) 1 ea QHS MC Last administered on 11/26/19at 21:00; Start 11/26/19 at 21:00 Heparin Sodium (Porcine) (Heparin Sodium) 5,000 unit Q8HRS SQ Last administered on 11/27/19at 07:18; Start 11/26/19 at 10:00 Albuterol Sulfate (Ventolin Neb Soln) 2.5 mg PRN Q6HRS PRN INH SHORTNESS OF BREATH; Start 11/26/19 at 09:45 Levothyroxine Sodium 50 mcg/ Sodium Chloride 5 ml @ 100 mls/hr Q3DAYS IV Last administered on 11/26/19at 11:56; Start 11/26/19 at 09:45 Iohexol (Omnipaque 300 Mg/ml) 400 ml 1X ONCE PO ; Start 11/27/19 at 07:00; Stop 11/27/19 at 07:01; Status DC Info (CONTRAST GIVEN -- Rx MONITORING) 1 each PRN DAILY PRN MC SEE COMMENTS; Start 11/27/19 at 07:00; Stop 11/29/19 at 06:59 Active Scripts Active Reported Omeprazole 20 Mg Tablet.dr 1 Tab PO DAILY Levothyroxine Sodium 50 Mcg Tablet 50 Mcg PO DAILYAC Benefiber (Wheat Dextrin) 1 Each Powd.pack 1 Each PO BID Albuterol Sulfate Neb Soln (Albuterol Sulfate) 2.5 Mg/3 Ml Vial.neb 2.5 Mg NEB Pred Forte (Prednisolone Acetate) 1 Ml Drops.susp 1 Ml OP Proair Hfa Inhaler (Albuterol Sulfate) 8.5 Gm Hfa.aer.ad 1 Puff INH PRN Q6HRS PRN Losartan Potassium 50 Mg Tablet 1 Tab PO DAILY Hydroxychloroquine Sulfate 200 Mg Tablet 200 Mg PO DAILY Levothyroxine Sodium 50 Mcg Tablet 1 Tab PO DAILY Meloxicam 7.5 Mg Tablet 1 Tab PO DAILY Vitals/I & O Vital Sign - Last 24 Hours 11/26/19 11/26/19 11/26/19 11/26/19 09:31 10:01 11:00 15:00 Temp 98.2 98.0 98.2 98.0 Pulse 80 80 Resp 18 18 B/P (MAP) 120/56 (77) 118/52 (74) Pulse Ox 96 96 O2 Delivery Room Air Room Air Room Air Room Air 11/26/19 11/26/19 11/26/19 11/26/19 19:00 20:00 21:08 21:38 Temp 98.3 98.3 Pulse 75 Resp 18 B/P (MAP) 118/60 (79) Pulse Ox 94 O2 Delivery Room Air Room Air Room Air Room Air 11/26/19 11/27/19 11/27/19 11/27/19 23:00 03:00 07:13 07:43 Temp 98.3 99.5 98.3 99.5 Pulse 76 97 Resp 18 18 B/P (MAP) 119/53 (75) 158/78 (104) Pulse Ox 95 100 O2 Delivery Room Air Room Air Room Air Room Air Intake and Output 11/26/19 11/26/19 11/27/19 14:59 22:59 06:59 Output Total 1000 ml Balance -1000 ml Justicifation of Admission Dx: Justifications for Admission: Justification of Admission Dx: Yes FRANKLYN VALENCIA MD Nov 27, 2019 08:31
--- NOTE | 2019-11-27 08:51 | PDOC ---
[employer] 11/27/19 0851: SURGICAL PROGRESS NOTE Subjective pain epigastric no flatus Vital Signs Vital Signs Date Time Temp Pulse Resp B/P (MAP) Pulse Ox O2 Delivery O2 Flow Rate FiO2 11/27/19 07:43 Room Air 11/27/19 07:00 98.7 85 18 103/42 (62) 97 98.7 I&O Intake and Output 11/27/19 07:00 Output Total 1000 ml Balance -1000 ml Output Urine Total 1000 ml # Voids 3 General: Cooperative, No acute distress Abdomen: Soft, Other (mildly distended, ttp epigastric) Labs Laboratory Tests Test 11/26/19 04:10 White Blood Count 9.4 x10^3/uL (4.0-11.0) Red Blood Count 3.38 x10^6/uL (3.50-5.40) Hemoglobin 10.6 g/dL (12.0-15.5) Hematocrit 31.6 % (36.0-47.0) Mean Corpuscular Volume 94 fL (79-100) Mean Corpuscular Hemoglobin 31 pg (25-35) Mean Corpuscular Hemoglobin Concent 34 g/dL (31-37) Red Cell Distribution Width 14.9 % (11.5-14.5) Platelet Count 288 x10^3/uL (140-400) Neutrophils (%) (Auto) 68 % (31-73) Lymphocytes (%) (Auto) 25 % (24-48) Monocytes (%) (Auto) 6 % (0-9) Eosinophils (%) (Auto) 1 % (0-3) Basophils (%) (Auto) 1 % (0-3) Neutrophils # (Auto) 6.3 x10^3/uL (1.8-7.7) Lymphocytes # (Auto) 2.3 x10^3/uL (1.0-4.8) Monocytes # (Auto) 0.5 x10^3/uL (0.0-1.1) Eosinophils # (Auto) 0.1 x10^3/uL (0.0-0.7) Basophils # (Auto) 0.1 x10^3/uL (0.0-0.2) Sodium Level 141 mmol/L (136-145) Potassium Level 5.0 mmol/L (3.5-5.1) Chloride Level 107 mmol/L (98-107) Carbon Dioxide Level 18 mmol/L (21-32) Anion Gap 16 (6-14) Blood Urea Nitrogen 43 mg/dL (7-20) Creatinine 2.2 mg/dL (0.6-1.0) Estimated GFR (Cockcroft-Gault) 21.1 BUN/Creatinine Ratio 20 (6-20) Glucose Level 58 mg/dL (70-99) Calcium Level 8.3 mg/dL (8.5-10.1) Total Bilirubin 0.3 mg/dL (0.2-1.0) Aspartate Amino Transf (AST/SGOT) 21 U/L (15-37) Alanine Aminotransferase (ALT/SGPT) 8 U/L (14-59) Alkaline Phosphatase 79 U/L (46-116) Total Protein 6.1 g/dL (6.4-8.2) Albumin 2.5 g/dL (3.4-5.0) Albumin/Globulin Ratio 0.7 (1.0-1.7) Assessment/Plan SBFT today Justicifation of Admission Dx: Justifications for Admission: Justification of Admission Dx: Yes ANDREW LINTON MD 11/27/19 1622: SURGICAL PROGRESS NOTE Assessment/Plan Pt seen and examined. Agree with Ms. Beck's note Pt reports N/V abd soft, NTTP, mild distention SBFT ongoing. BILL BECK APRN Nov 27, 2019 08:51 ANDREW LINTON MD Nov 27, 2019 16:22
[2019-11-27] MEDS: LIDOCAINE (700MG/PATCH) PATCH. TD SCH (09:00)
--- NOTE | 2019-11-27 11:43 | NUR ---
SW following. Discussed with RN, pt from [facility] [place]. SW spoke with Zofia at [facility] (ph: [phone]), pt does not need a COVID-19 test prior to returning. Pt having a small bowel series today. SW will continue to follow.
[2019-11-27 15:29] VITALS: BP 128/58
[2019-11-27 19:00] VITALS: BP 121/50
[2019-11-27] MEDS: PATCH REMOVAL. MC SCH (21:00)
[2019-11-27] MEDS: ONDANSETRON PF 4 MG/2 ML VIAL. IVP PRN (21:18)
[2019-11-27 23:00] VITALS: BP 113/49
[2019-11-28 03:00] VITALS: BP 110/47
[2019-11-28] MEDS: METOCLOPRAMIDE HCL 10 MG/2 ML VIAL. IVP SCH ×5 (06:00→23:45)
[2019-11-28] MEDS: HEPARIN for SUB-Q USE 5,000 UNIT/ML VIAL. SQ SCH ×3 (06:00→22:30)
[2019-11-28 07:00] VITALS: BP 111/70
[2019-11-28] MEDS: IV NORMAL SALINE 1000ML BAG 1,000 ML IV SCH (07:30)
--- NOTE | 2019-11-28 08:04 | NUR ---
System down, see paper charting.
[2019-11-28 08:49] LABS: BASO % 1 % (0-3); EOS # 0.1 x10^3/uL (0.0-0.7); EOS % 1 % (0-3); HEMATOCRIT 30.8 % (36.0-47.0); HEMOGLOBIN 10.1 g/dL (12.0-15.5); LYMPH # 1.7 x10^3/uL (1.0-4.8); LYMPH % 28 % (24-48); MEAN CORPUSCULAR HEMOGLOBIN 31 pg (25-35); MEAN CORPUSCULAR HGB CONC 33 g/dL (31-37); MEAN CORPUSCULAR VOLUME 95 fL (79-100); MONO # 0.5 x10^3/uL (0.0-1.1); MONO % 9 % (0-9); NEUT # 3.6 x10^3/uL (1.8-7.7); NEUT % 61 % (31-73); PLATELET COUNT 254 x10^3/uL (140-400); RED BLOOD COUNT 3.23 x10^6/uL (3.50-5.40)
--- NOTE | 2019-11-28 08:51 | PDOC ---
BILL BECK APRN 11/28/19 0851: SURGICAL PROGRESS NOTE Subjective vomiting overnight refused NG Vital Signs Vital Signs Date Time Temp Pulse Resp B/P (MAP) Pulse Ox O2 Delivery O2 Flow Rate FiO2 11/28/19 07:00 97.8 78 17 111/70 (84) 97 Room Air 97.8 I&O Intake and Output 11/28/19 07:00 Intake Total 0 ml Balance 0 ml Intake Oral 0 ml # Voids 1 General: Cooperative, No acute distress Abdomen: Other (distended, TTP on exam) Assessment/Plan await results of SBFT clinically does not appear improving will review with Dr Hadley Justicifation of Admission Dx: Justifications for Admission: Justification of Admission Dx: Yes ANDREW HADLEY MD 11/28/19 1510: SURGICAL PROGRESS NOTE Assessment/Plan Pt seen and examined. Agree with Ms. Beck's note Pt now feels much better, passing multiple stools abd soft, NTTP will try clears and cancel surgery for today. BILL BECK APRN Nov 28, 2019 08:51 ANDREW HADLEY MD Nov 28, 2019 15:10
[2019-11-28 08:56] LABS: ALBUMIN 2.7 g/dL (3.4-5.0); ALBUMIN/GLOBULIN RATIO 0.7 (1.0-1.7); CALCIUM 8.4 mg/dL (8.5-10.1); CREATININE 2.5 mg/dL (0.6-1.0); GFR 18.2; POTASSIUM 5.5 mmol/L (3.5-5.1); TOTAL BILIRUBIN 0.2 mg/dL (0.2-1.0); TOTAL PROTEIN 6.4 g/dL (6.4-8.2)
[2019-11-28] MEDS: LIDOCAINE (700MG/PATCH) PATCH. TD SCH (09:00)
[2019-11-28] MEDS: POTASSIUM CL 20MEQ D5-0.45NACL 1,000 ML IV SCH ×2 (09:30)
--- NOTE | 2019-11-28 09:41 | NUR ---
SW following. Discussed with RN, pt vomiting overnight, refused NG tube. Surgery note states "clinically does not appear improving." SW will continue to follow for discharge planning.
--- NOTE | 2019-11-28 09:58 | PDOC ---
PROGRESS NOTES Chief Complaint Chief Complaint impression SBO - cont NPO, pain control IV, f/u surgery recs Distended small bowel loops are present with transition within the lower pelvic region. Very distal small bowel is decompressed. Prolonged transit of contrast through the stomach and small bowel. Possibility of low-grade, partial, or intermittent obstruction at the lower pelvic, right distal small bowel region is is raised BRITTANI - vasomotor nephropathy Severe protein calorie malnutrition Hypothyroidism - IV HTN GERD Coronary artery calcification Bibasilar pulmonary fibrotic changes on chest x-ray PLAN FEN - NPO PPX - Lovenox FULL CODE Dispo - inpatient small bowel series 11/26 D/W RN History of Present Illness History of Present Illness Sr Al is an 88 yo Sister of Idania and lives with her community in [place] w/ PMHx GERD, Hypothyroidism, HTN. She awoke in the middle of the night 11/24/2019 with severe mid abdominal pain and projectile vomiting. She presented to the [facility] Emergency Department for evaluation and was found to have small bowel obstruction and transferred to [facility]. Creatinine noted 2.7, which had improved overnight to 2.3 with intravenous hydration. The patient denied any history of renal failure. CR improved to 2.2. No vomiting overnight still with pain states she passed gas. Now has some left-sided back pain was not able to sleep well. Afebrile no shortness of breath or cough. KUB with SBO. CXR with worsening basilar fibrotic changes. Vitals Vitals Vital Signs Date Time Temp Pulse Resp B/P (MAP) Pulse Ox O2 Delivery O2 Flow Rate FiO2 11/28/19 07:00 97.8 78 17 111/70 (84) 97 Room Air 97.8 Physical Exam General: Cooperative, No acute distress Heart: Regular rate, Normal S1, Normal S2 Lungs: Clear Abdomen: No hepatosplenomegaly, Other (distended, TTP on exam) Extremities: No clubbing, No cyanosis Skin: No rashes, No breakdown Labs LABS Examination: SMALL BOWEL SERIES History: Reason: SBO ft .3 / Spl. Instructions: please place NGT for procedure and use gastrograffin, contrast ordered / History: Comparison/Correlation: 11/24/2019 CT abdomen and pelvis with oral contrast Findings: Small bowel series was performed. Fluoroscopy was utilized for 0.3 minutes. A total of 3 fluoroscopic images were acquired. Fish Rod Maker view demonstrates retained contrast within the distal small bowel. Multiple distended small bowel loops are present within the abdomen and upper one half of the pelvis. Stool is present in the rectum. No significant distention of the colon identified. Scoliosis and osteopenia are incidentally seen. Water-soluble oral contrast was administered. Prolonged transit of contrast through the distended loops of small bowel is noted. Small hiatal hernia is present with occasional gastroesophageal reflux partially seen. Prolonged retention of contrast within stomach including on the 345 minute images noted and may represent ileus or gastroparesis. On the 23 hour image, contrast is noted throughout the small bowel and the colon. There is transition of small bowel diameter at the low pelvic level. On fluoroscopic imaging, a definite transition point cannot be delineated more specifically otherwise. Diverticulosis of the partially contrast opacified descending and sigmoid colon noted. Impression: Distended small bowel loops are present with transition within the lower pelvic region. Very distal small bowel is decompressed. Prolonged transit of contrast through the stomach and small bowel. Possibility of low-grade, partial, or intermittent obstruction at the lower pelvic, right distal small bowel region is is raised. Gastric and small bowel ileus alternatively is not excluded. Small sliding hiatal hernia with gastroesophageal reflux. Diverticulosis of the colon. Electronically signed by: John Chung MD (11/28/2019 11:25 AM) [id number] DICTATED and SIGNED BY: JOHN CHUNG MD Laboratory Tests Test 11/28/19 05:30 White Blood Count 6.0 x10^3/uL (4.0-11.0) Red Blood Count 3.23 x10^6/uL (3.50-5.40) Hemoglobin 10.1 g/dL (12.0-15.5) Hematocrit 30.8 % (36.0-47.0) Mean Corpuscular Volume 95 fL (79-100) Mean Corpuscular Hemoglobin 31 pg (25-35) Mean Corpuscular Hemoglobin Concent 33 g/dL (31-37) Red Cell Distribution Width 15.0 % (11.5-14.5) Platelet Count 254 x10^3/uL (140-400) Neutrophils (%) (Auto) 61 % (31-73) Lymphocytes (%) (Auto) 28 % (24-48) Monocytes (%) (Auto) 9 % (0-9) Eosinophils (%) (Auto) 1 % (0-3) Basophils (%) (Auto) 1 % (0-3) Neutrophils # (Auto) 3.6 x10^3/uL (1.8-7.7) Lymphocytes # (Auto) 1.7 x10^3/uL (1.0-4.8) Monocytes # (Auto) 0.5 x10^3/uL (0.0-1.1) Eosinophils # (Auto) 0.1 x10^3/uL (0.0-0.7) Basophils # (Auto) 0.0 x10^3/uL (0.0-0.2) Sodium Level 146 mmol/L (136-145) Potassium Level 5.5 mmol/L (3.5-5.1) Chloride Level 112 mmol/L (98-107) Carbon Dioxide Level 16 mmol/L (21-32) Anion Gap 18 (6-14) Blood Urea Nitrogen 48 mg/dL (7-20) Creatinine 2.5 mg/dL (0.6-1.0) Estimated GFR (Cockcroft-Gault) 18.2 BUN/Creatinine Ratio 19 (6-20) Glucose Level 106 mg/dL (70-99) Calcium Level 8.4 mg/dL (8.5-10.1) Total Bilirubin 0.2 mg/dL (0.2-1.0) Aspartate Amino Transf (AST/SGOT) 25 U/L (15-37) Alanine Aminotransferase (ALT/SGPT) 10 U/L (14-59) Alkaline Phosphatase 75 U/L (46-116) Total Protein 6.4 g/dL (6.4-8.2) Albumin 2.7 g/dL (3.4-5.0) Albumin/Globulin Ratio 0.7 (1.0-1.7) Comment Review of Relevant I have reviewed the following items mercedes (where applicable) has been applied. Labs Laboratory Tests Test 11/28/19 05:30 White Blood Count 6.0 x10^3/uL (4.0-11.0) Red Blood Count 3.23 x10^6/uL (3.50-5.40) Hemoglobin 10.1 g/dL (12.0-15.5) Hematocrit 30.8 % (36.0-47.0) Mean Corpuscular Volume 95 fL (79-100) Mean Corpuscular Hemoglobin 31 pg (25-35) Mean Corpuscular Hemoglobin Concent 33 g/dL (31-37) Red Cell Distribution Width 15.0 % (11.5-14.5) Platelet Count 254 x10^3/uL (140-400) Neutrophils (%) (Auto) 61 % (31-73) Lymphocytes (%) (Auto) 28 % (24-48) Monocytes (%) (Auto) 9 % (0-9) Eosinophils (%) (Auto) 1 % (0-3) Basophils (%) (Auto) 1 % (0-3) Neutrophils # (Auto) 3.6 x10^3/uL (1.8-7.7) Lymphocytes # (Auto) 1.7 x10^3/uL (1.0-4.8) Monocytes # (Auto) 0.5 x10^3/uL (0.0-1.1) Eosinophils # (Auto) 0.1 x10^3/uL (0.0-0.7) Basophils # (Auto) 0.0 x10^3/uL (0.0-0.2) Sodium Level 146 mmol/L (136-145) Potassium Level 5.5 mmol/L (3.5-5.1) Chloride Level 112 mmol/L (98-107) Carbon Dioxide Level 16 mmol/L (21-32) Anion Gap 18 (6-14) Blood Urea Nitrogen 48 mg/dL (7-20) Creatinine 2.5 mg/dL (0.6-1.0) Estimated GFR (Cockcroft-Gault) 18.2 BUN/Creatinine Ratio 19 (6-20) Glucose Level 106 mg/dL (70-99) Calcium Level 8.4 mg/dL (8.5-10.1) Total Bilirubin 0.2 mg/dL (0.2-1.0) Aspartate Amino Transf (AST/SGOT) 25 U/L (15-37) Alanine Aminotransferase (ALT/SGPT) 10 U/L (14-59) Alkaline Phosphatase 75 U/L (46-116) Total Protein 6.4 g/dL (6.4-8.2) Albumin 2.7 g/dL (3.4-5.0) Albumin/Globulin Ratio 0.7 (1.0-1.7) Laboratory Tests Test 11/28/19 05:30 White Blood Count 6.0 x10^3/uL (4.0-11.0) Red Blood Count 3.23 x10^6/uL (3.50-5.40) Hemoglobin 10.1 g/dL (12.0-15.5) Hematocrit 30.8 % (36.0-47.0) Mean Corpuscular Volume 95 fL (79-100) Mean Corpuscular Hemoglobin 31 pg (25-35) Mean Corpuscular Hemoglobin Concent 33 g/dL (31-37) Red Cell Distribution Width 15.0 % (11.5-14.5) Platelet Count 254 x10^3/uL (140-400) Neutrophils (%) (Auto) 61 % (31-73) Lymphocytes (%) (Auto) 28 % (24-48) Monocytes (%) (Auto) 9 % (0-9) Eosinophils (%) (Auto) 1 % (0-3) Basophils (%) (Auto) 1 % (0-3) Neutrophils # (Auto) 3.6 x10^3/uL (1.8-7.7) Lymphocytes # (Auto) 1.7 x10^3/uL (1.0-4.8) Monocytes # (Auto) 0.5 x10^3/uL (0.0-1.1) Eosinophils # (Auto) 0.1 x10^3/uL (0.0-0.7) Basophils # (Auto) 0.0 x10^3/uL (0.0-0.2) Sodium Level 146 mmol/L (136-145) Potassium Level 5.5 mmol/L (3.5-5.1) Chloride Level 112 mmol/L (98-107) Carbon Dioxide Level 16 mmol/L (21-32) Anion Gap 18 (6-14) Blood Urea Nitrogen 48 mg/dL (7-20) Creatinine 2.5 mg/dL (0.6-1.0) Estimated GFR (Cockcroft-Gault) 18.2 BUN/Creatinine Ratio 19 (6-20) Glucose Level 106 mg/dL (70-99) Calcium Level 8.4 mg/dL (8.5-10.1) Total Bilirubin 0.2 mg/dL (0.2-1.0) Aspartate Amino Transf (AST/SGOT) 25 U/L (15-37) Alanine Aminotransferase (ALT/SGPT) 10 U/L (14-59) Alkaline Phosphatase 75 U/L (46-116) Total Protein 6.4 g/dL (6.4-8.2) Albumin 2.7 g/dL (3.4-5.0) Albumin/Globulin Ratio 0.7 (1.0-1.7) Medications Current Medications Ringer's Solution 1,000 ml @ 100 mls/hr Q10H IV Last administered on 11/24/19at 23:17; Start 11/24/19 at 22:43; Stop 11/25/19 at 19:26; Status DC Ondansetron HCl (Zofran) 4 mg PRN Q4HRS PRN IVP NAUSEA/VOMITING Last administered on 11/27/19at 21:18; Start 11/24/19 at 22:45 Morphine Sulfate (Morphine Sulfate) 2 mg PRN Q3HRS PRN IV PAIN Last administered on 11/27/19at 07:13; Start 11/24/19 at 22:45 Benzocaine (Hurricaine One) 1 spray 1X ONCE MM Last administered on 11/24/19at 23:17; Start 11/24/19 at 23:00; Stop 11/24/19 at 23:02; Status DC Hydralazine HCl (Apresoline Inj) 5 mg PRN Q6HRS PRN IVP ELEVATED BP, SEE COMMENTS; Start 11/25/19 at 00:45 Sodium Chloride 1,000 ml @ 125 mls/hr 1X ONCE IV Last administered on 11/25/19at 10:03; Start 11/25/19 at 09:30; Stop 11/25/19 at 17:29; Status DC Sodium Chloride 1,000 ml @ 100 mls/hr Q10H IV Last administered on 11/27/19at 21:19; Start 11/25/19 at 19:30 Lidocaine (Lidoderm) 1 patch DAILY TD Last administered on 11/26/19at 11:56; Start 11/26/19 at 09:45 Miscellaneous (Lidoderm Patch Removal) 1 ea QHS MC Last administered on 11/26/19at 21:00; Start 11/26/19 at 21:00 Heparin Sodium (Porcine) (Heparin Sodium) 5,000 unit Q8HRS SQ Last administered on 11/27/19at 21:26; Start 11/26/19 at 10:00 Albuterol Sulfate (Ventolin Neb Soln) 2.5 mg PRN Q6HRS PRN INH SHORTNESS OF BREATH; Start 11/26/19 at 09:45 Levothyroxine Sodium 50 mcg/ Sodium Chloride 5 ml @ 100 mls/hr Q3DAYS IV Last administered on 11/26/19at 11:56; Start 11/26/19 at 09:45 Iohexol (Omnipaque 300 Mg/ml) 400 ml 1X ONCE PO Last administered on 11/27/19at 07:00; Start 11/27/19 at 07:00; Stop 11/27/19 at 07:01; Status DC Info (CONTRAST GIVEN -- Rx MONITORING) 1 each PRN DAILY PRN MC SEE COMMENTS; Start 11/27/19 at 07:00; Stop 11/29/19 at 06:59 Metoclopramide HCl (Reglan Vial) 5 mg Q6HRS IVP Last administered on 11/28/19at 00:00; Start 11/28/19 at 00:00 Potassium Chloride/Dextrose/ Sod Cl 1,000 ml @ 100 mls/hr Q10H IV Last administered on 11/28/19at 00:00; Start 11/27/19 at 23:30 Active Scripts Active Reported Omeprazole 20 Mg Tablet.dr 1 Tab PO DAILY Levothyroxine Sodium 50 Mcg Tablet 50 Mcg PO DAILYAC Benefiber (Wheat Dextrin) 1 Each Powd.pack 1 Each PO BID Albuterol Sulfate Neb Soln (Albuterol Sulfate) 2.5 Mg/3 Ml Vial.neb 2.5 Mg NEB Pred Forte (Prednisolone Acetate) 1 Ml Drops.susp 1 Ml OP Proair Hfa Inhaler (Albuterol Sulfate) 8.5 Gm Hfa.aer.ad 1 Puff INH PRN Q6HRS PRN Losartan Potassium 50 Mg Tablet 1 Tab PO DAILY Hydroxychloroquine Sulfate 200 Mg Tablet 200 Mg PO DAILY Levothyroxine Sodium 50 Mcg Tablet 1 Tab PO DAILY Meloxicam 7.5 Mg Tablet 1 Tab PO DAILY Vitals/I & O Vital Sign - Last 24 Hours 11/27/19 11/27/19 11/27/19 11/27/19 15:29 19:00 20:00 23:00 Temp 97.9 98.9 98.8 97.9 98.9 98.8 Pulse 72 85 82 Resp 18 18 18 B/P (MAP) 128/58 (81) 121/50 (73) 113/49 (70) Pulse Ox 97 97 95 O2 Delivery Room Air Room Air Room Air Room Air 11/28/19 11/28/19 03:00 07:00 Temp 98.5 97.8 98.5 97.8 Pulse 81 78 Resp 18 17 B/P (MAP) 110/47 (68) 111/70 (84) Pulse Ox 95 97 O2 Delivery Room Air Room Air Intake and Output 11/27/19 11/27/19 11/28/19 15:00 23:00 07:00 Intake Total 0 ml Balance 0 ml Justicifation of Admission Dx: Justifications for Admission: Justification of Admission Dx: Yes FRANKLYN VALENCIA MD Nov 28, 2019 09:58
[2019-11-28] MEDS ORDERED: IV RINGERS,LACTATED 1000ML 1,000 ML IV SCH (10:29)
[2019-11-28] MEDS ORDERED: MORPHINE SULFATE 2 MG/ML VIAL. IV PRN (10:30)
[2019-11-28] MEDS ORDERED: HYDROmorphone 2 MG/ML VIAL IV PRN (10:30)
[2019-11-28] MEDS ORDERED: fentaNYL PF VIAL 100 MCG/2 ML VIAL IV PRN ×2 (10:30)
[2019-11-28 10:59] VITALS: BP 129/55
--- NOTE | 2019-11-28 11:28 | RAD ---
Examination: SMALL BOWEL SERIES History: Reason: SBO ft .3 / Spl. Instructions: please place NGT for procedure and use gastrograffin, contrast ordered / History: Comparison/Correlation: 11/24/2019 CT abdomen and pelvis with oral contrast Findings: Small bowel series was performed. Fluoroscopy was utilized for 0.3 minutes. A total of 3 fluoroscopic images were acquired. Employee Relations Assistant view demonstrates retained contrast within the distal small bowel. Multiple distended small bowel loops are present within the abdomen and upper one half of the pelvis. Stool is present in the rectum. No significant distention of the colon identified. Scoliosis and osteopenia are incidentally seen. Water-soluble oral contrast was administered. Prolonged transit of contrast through the distended loops of small bowel is noted. Small hiatal hernia is present with occasional gastroesophageal reflux partially seen. Prolonged retention of contrast within stomach including on the 345 minute images noted and may represent ileus or gastroparesis. On the 23 hour image, contrast is noted throughout the small bowel and the colon. There is transition of small bowel diameter at the low pelvic level. On fluoroscopic imaging, a definite transition point cannot be delineated more specifically otherwise. Diverticulosis of the partially contrast opacified descending and sigmoid colon noted. Impression: Distended small bowel loops are present with transition within the lower pelvic region. Very distal small bowel is decompressed. Prolonged transit of contrast through the stomach and small bowel. Possibility of low-grade, partial, or intermittent obstruction at the lower pelvic, right distal small bowel region is is raised. Gastric and small bowel ileus alternatively is not excluded. Small sliding hiatal hernia with gastroesophageal reflux. Diverticulosis of the colon. Electronically signed by: John Irving MD (11/28/2019 11:25 AM) [id number]
[2019-11-28 14:53] VITALS: BP 117/52
[2019-11-28] MEDS: IV 1/2 NORMAL SALINE 1,000 ML IV SCH (15:35)
[2019-11-28 19:44] VITALS: BP 132/59
[2019-11-28] MEDS: PATCH REMOVAL. MC SCH (20:40)
[2019-11-28 23:45] VITALS: BP 120/61
[2019-11-29] MEDS: ONDANSETRON PF 4 MG/2 ML VIAL. IVP PRN (03:36)
[2019-11-29 03:47] VITALS: BP 124/62
[2019-11-29] MEDS: METOCLOPRAMIDE HCL 10 MG/2 ML VIAL. IVP SCH ×4 (05:56→23:50)
[2019-11-29] MEDS: HEPARIN for SUB-Q USE 5,000 UNIT/ML VIAL. SQ SCH ×3 (06:05→21:35)
[2019-11-29 07:24] VITALS: BP 127/61
--- NOTE | 2019-11-29 08:42 | NUR ---
SW following. Discussed with RN, pt doing much better, had BM yesterday. Plan to try the small bowel series again today. RN anticipates pt could return home if bowel series is negative. Pt advanced to clear liquid diet. SW will continue to follow.
[2019-11-29] MEDS: LIDOCAINE (700MG/PATCH) PATCH. TD SCH (08:45)
[2019-11-29] MEDS: LEVOTHYROXINE SODIUM INJ 50 MCG in NORMAL SALINE 5 ML IV SCH (08:46)
--- NOTE | 2019-11-29 08:48 | PDOC ---
PROGRESS NOTES Chief Complaint Chief Complaint impression SBO - cont NPO, pain control IV, f/u surgery recs Distended small bowel loops are present with transition within the lower pelvic region. Very distal small bowel is decompressed. Prolonged transit of contrast through the stomach and small bowel. Possibility of low-grade, partial, or intermittent obstruction at the lower pelvic, right distal small bowel region is is raised BRITTANI - vasomotor nephropathy Severe protein calorie malnutrition Small sliding hiatal hernia with gastroesophageal reflux. Diverticulosis of the colon. Hypothyroidism - IV HTN GERD Coronary artery calcification Bibasilar pulmonary fibrotic changes on chest x-ray PLAN FEN - NPO PPX - Lovenox FULL CODE Dispo - inpatient small bowel series 11/26 continue diet trial and observe. gi consult D/W RN History of Present Illness History of Present Illness Sr Al is an 88 yo Sister of Idania and lives with her community in [place] w/ PMHx GERD, Hypothyroidism, HTN. She awoke in the middle of the night 11/24/2019 with severe mid abdominal pain and projectile vomiting. She presented to the [facility] Emergency Department for evaluation and was found to have small bowel obstruction and transferred to . Creatinine noted 2.7, which had improved overnight to 2.3 with intravenous hydration. The patient denied any history of renal failure. CR improved to 2.2. No vomiting overnight still with pain states she passed gas. Now has some left-sided back pain was not able to sleep well. Afebrile no shortness of breath or cough. KUB with SBO. CXR with worsening basilar fibrotic changes. Vitals Vitals Vital Signs Date Time Temp Pulse Resp B/P (MAP) Pulse Ox O2 Delivery O2 Flow Rate FiO2 11/29/19 07:24 98.4 85 17 127/61 (83) 95 Room Air 98.4 Physical Exam General: Cooperative, No acute distress Heart: Regular rate, Normal S1, Normal S2 Lungs: Clear Abdomen: No hepatosplenomegaly, Other (distended, TTP on exam) Extremities: No clubbing, No cyanosis Skin: No rashes, No breakdown Labs LABS STATUS: ADM IN ORD. PHYSICIAN: ANDREW LINTON MD REASON: SBO ft .3 PROCEDURE: SMALL BOWEL SERIES Examination: SMALL BOWEL SERIES History: Reason: SBO ft .3 / Spl. Instructions: please place NGT for procedure and use gastrograffin, contrast ordered / History: Comparison/Correlation: 11/24/2019 CT abdomen and pelvis with oral contrast Findings: Small bowel series was performed. Fluoroscopy was utilized for 0.3 minutes. A total of 3 fluoroscopic images were acquired. Forging Die Sinker view demonstrates retained contrast within the distal small bowel. Multiple distended small bowel loops are present within the abdomen and upper one half of the pelvis. Stool is present in the rectum. No significant distention of the colon identified. Scoliosis and osteopenia are incidentally seen. Water-soluble oral contrast was administered. Prolonged transit of contrast through the distended loops of small bowel is noted. Small hiatal hernia is present with occasional gastroesophageal reflux partially seen. Prolonged retention of contrast within stomach including on the 345 minute images noted and may represent ileus or gastroparesis. On the 23 hour image, contrast is noted throughout the small bowel and the colon. There is transition of small bowel diameter at the low pelvic level. On fluoroscopic imaging, a definite transition point cannot be delineated more specifically otherwise. Diverticulosis of the partially contrast opacified descending and sigmoid colon noted. Impression: Distended small bowel loops are present with transition within the lower pelvic region. Very distal small bowel is decompressed. Prolonged transit of contrast through the stomach and small bowel. Possibility of low-grade, partial, or intermittent obstruction at the lower pelvic, right distal small bowel region is is raised. Gastric and small bowel ileus alternatively is not excluded. Small sliding hiatal hernia with gastroesophageal reflux. Diverticulosis of the colon. Electronically signed by: John Irving MD (11/28/2019 11:25 AM) [id number] Comment Review of Relevant I have reviewed the following items mercedes (where applicable) has been applied. Labs Laboratory Tests Test 11/28/19 05:30 White Blood Count 6.0 x10^3/uL (4.0-11.0) Red Blood Count 3.23 x10^6/uL (3.50-5.40) Hemoglobin 10.1 g/dL (12.0-15.5) Hematocrit 30.8 % (36.0-47.0) Mean Corpuscular Volume 95 fL (79-100) Mean Corpuscular Hemoglobin 31 pg (25-35) Mean Corpuscular Hemoglobin Concent 33 g/dL (31-37) Red Cell Distribution Width 15.0 % (11.5-14.5) Platelet Count 254 x10^3/uL (140-400) Neutrophils (%) (Auto) 61 % (31-73) Lymphocytes (%) (Auto) 28 % (24-48) Monocytes (%) (Auto) 9 % (0-9) Eosinophils (%) (Auto) 1 % (0-3) Basophils (%) (Auto) 1 % (0-3) Neutrophils # (Auto) 3.6 x10^3/uL (1.8-7.7) Lymphocytes # (Auto) 1.7 x10^3/uL (1.0-4.8) Monocytes # (Auto) 0.5 x10^3/uL (0.0-1.1) Eosinophils # (Auto) 0.1 x10^3/uL (0.0-0.7) Basophils # (Auto) 0.0 x10^3/uL (0.0-0.2) Sodium Level 146 mmol/L (136-145) Potassium Level 5.5 mmol/L (3.5-5.1) Chloride Level 112 mmol/L (98-107) Carbon Dioxide Level 16 mmol/L (21-32) Anion Gap 18 (6-14) Blood Urea Nitrogen 48 mg/dL (7-20) Creatinine 2.5 mg/dL (0.6-1.0) Estimated GFR (Cockcroft-Gault) 18.2 BUN/Creatinine Ratio 19 (6-20) Glucose Level 106 mg/dL (70-99) Calcium Level 8.4 mg/dL (8.5-10.1) Total Bilirubin 0.2 mg/dL (0.2-1.0) Aspartate Amino Transf (AST/SGOT) 25 U/L (15-37) Alanine Aminotransferase (ALT/SGPT) 10 U/L (14-59) Alkaline Phosphatase 75 U/L (46-116) Total Protein 6.4 g/dL (6.4-8.2) Albumin 2.7 g/dL (3.4-5.0) Albumin/Globulin Ratio 0.7 (1.0-1.7) Medications Current Medications Ringer's Solution 1,000 ml @ 100 mls/hr Q10H IV Last administered on 11/24/19 23:17; Start 11/24/19 at 22:43; Stop 11/25/19 at 19:26; Status DC Ondansetron HCl (Zofran) 4 mg PRN Q4HRS PRN IVP NAUSEA/VOMITING Last administered on 11/29/19 03:36; Start 11/24/19 at 22:45 Morphine Sulfate (Morphine Sulfate) 2 mg PRN Q3HRS PRN IV PAIN Last administered on 11/27/19 07:13; Start 11/24/19 at 22:45 Benzocaine (Hurricaine One) 1 spray 1X ONCE MM Last administered on 11/24/19 23:17; Start 11/24/19 at 23:00; Stop 11/24/19 at 23:02; Status DC Hydralazine HCl (Apresoline Inj) 5 mg PRN Q6HRS PRN IVP ELEVATED BP, SEE COMMENTS; Start 11/25/19 at 00:45 Sodium Chloride 1,000 ml @ 125 mls/hr 1X ONCE IV Last administered on 11/25/19at 10:03; Start 11/25/19 at 09:30; Stop 11/25/19 at 17:29; Status DC Sodium Chloride 1,000 ml @ 100 mls/hr Q10H IV Last administered on 11/27/19 21:19; Start 11/25/19 at 19:30; Stop 11/28/19 at 13:43; Status DC Lidocaine (Lidoderm) 1 patch DAILY TD Last administered on 11/29/19at 08:45; Start 11/26/19 at 09:45 Miscellaneous (Lidoderm Patch Removal) 1 ea QHS MC Last administered on 11/26/19at 21:00; Start 11/26/19 at 21:00 Heparin Sodium (Porcine) (Heparin Sodium) 5,000 unit Q8HRS SQ Last administered on 11/29/19 06:05; Start 11/26/19 at 10:00 Albuterol Sulfate (Ventolin Neb Soln) 2.5 mg PRN Q6HRS PRN INH SHORTNESS OF BREATH; Start 11/26/19 at 09:45 Levothyroxine Sodium 50 mcg/ Sodium Chloride 5 ml @ 100 mls/hr Q3DAYS IV Last administered on 7/15/20at 08:46; Start 11/26/19 at 09:45 Iohexol (Omnipaque 300 Mg/ml) 400 ml 1X ONCE PO Last administered on 11/27/19at 07:00; Start 11/27/19 at 07:00; Stop 11/27/19 at 07:01; Status DC Info (CONTRAST GIVEN -- Rx MONITORING) 1 each PRN DAILY PRN MC SEE COMMENTS; Start 11/27/19 at 07:00; Stop 11/29/19 at 06:59; Status DC Metoclopramide HCl (Reglan Vial) 5 mg Q6HRS IVP Last administered on 11/29/19at 05:56; Start 11/28/19 at 00:00 Potassium Chloride/Dextrose/ Sod Cl 1,000 ml @ 100 mls/hr Q10H IV Last administered on 11/28/19at 00:00; Start 11/27/19 at 23:30; Stop 11/28/19 at 13:43; Status DC Fentanyl Citrate (Fentanyl 2ml Vial) 25 mcg PRN Q5MIN PRN IV MILD PAIN 1-3; Start 11/28/19 at 10:30; Stop 11/28/19 at 20:00; Status DC Fentanyl Citrate (Fentanyl 2ml Vial) 50 mcg PRN Q5MIN PRN IV MODERATE TO SEVERE PAIN; Start 11/28/19 at 10:30; Stop 11/28/19 at 20:00; Status DC Morphine Sulfate (Morphine Sulfate) 1 mg PRN Q10MIN PRN IV SEVERE PAIN 7-10; Start 11/28/19 at 10:30; Stop 11/28/19 at 20:00; Status DC Ringer's Solution 1,000 ml @ 30 mls/hr Q24H IV ; Start 11/28/19 at 10:29; Stop 11/28/19 at 22:28; Status DC Hydromorphone HCl (Dilaudid) 0.5 mg PRN Q10MIN PRN IV SEV PAIN, Second choice; Start 11/28/19 at 10:30; Stop 11/28/19 at 20:00; Status DC Sodium Chloride 1,000 ml @ 50 mls/hr Q20H IV Last administered on 11/28/19at 15:35; Start 11/28/19 at 14:00 Active Scripts Active Reported Omeprazole 20 Mg Tablet.dr 1 Tab PO DAILY Levothyroxine Sodium 50 Mcg Tablet 50 Mcg PO DAILYAC Benefiber (Wheat Dextrin) 1 Each Powd.pack 1 Each PO BID Albuterol Sulfate Neb Soln (Albuterol Sulfate) 2.5 Mg/3 Ml Vial.neb 2.5 Mg NEB Pred Forte (Prednisolone Acetate) 1 Ml Drops.susp 1 Ml OP Proair Hfa Inhaler (Albuterol Sulfate) 8.5 Gm Hfa.aer.ad 1 Puff INH PRN Q6HRS PRN Losartan Potassium 50 Mg Tablet 1 Tab PO DAILY Hydroxychloroquine Sulfate 200 Mg Tablet 200 Mg PO DAILY Levothyroxine Sodium 50 Mcg Tablet 1 Tab PO DAILY Meloxicam 7.5 Mg Tablet 1 Tab PO DAILY Vitals/I & O Vital Sign - Last 24 Hours 11/28/19 11/28/19 11/28/19 11/28/19 10:59 14:53 19:44 20:20 Temp 97.9 97.9 98.4 97.9 97.9 98.4 Pulse 86 85 77 Resp 17 17 18 B/P (MAP) 129/55 (79) 117/52 (73) 132/59 (83) Pulse Ox 96 98 96 O2 Delivery Room Air Room Air Room Air Room Air 11/28/19 11/29/19 11/29/19 23:45 03:47 07:24 Temp 98.7 98.6 98.4 98.7 98.6 98.4 Pulse 81 76 85 Resp 16 16 17 B/P (MAP) 120/61 (80) 124/62 (82) 127/61 (83) Pulse Ox 94 95 95 O2 Delivery Room Air Room Air Room Air Intake and Output 11/28/19 11/28/19 11/29/19 15:00 23:00 07:00 Intake Total 300 ml Output Total 1 ml 1 ml Balance -1 ml 300 ml -1 ml Justicifation of Admission Dx: Justifications for Admission: Justification of Admission Dx: Yes FRANKLYN VALENCIA MD Nov 29, 2019 08:48
--- NOTE | 2019-11-29 10:06 | PDOC ---
BILL BECK GASATERIA ATTENDANT 11/29/19 1006: SURGICAL PROGRESS NOTE Subjective taking some clears no emesis pain is lower chest/back Vital Signs Vital Signs Date Time Temp Pulse Resp B/P (MAP) Pulse Ox O2 Delivery O2 Flow Rate FiO2 11/29/19 08:00 Room Air 11/29/19 07:24 98.4 85 17 127/61 (83) 95 98.4 I&O Intake and Output 11/29/19 07:00 Intake Total 300 ml Output Total 2 ml Balance 298 ml Intake Oral 300 ml Output Urine Total 2 ml # Voids 3 # Bowel Movements 4 General: Alert, Oriented X3, Cooperative Abdomen: Soft, Other (ND, mild ttp upper abdomen ) Labs Laboratory Tests Test 11/28/19 05:30 White Blood Count 6.0 x10^3/uL (4.0-11.0) Red Blood Count 3.23 x10^6/uL (3.50-5.40) Hemoglobin 10.1 g/dL (12.0-15.5) Hematocrit 30.8 % (36.0-47.0) Mean Corpuscular Volume 95 fL (79-100) Mean Corpuscular Hemoglobin 31 pg (25-35) Mean Corpuscular Hemoglobin Concent 33 g/dL (31-37) Red Cell Distribution Width 15.0 % (11.5-14.5) Platelet Count 254 x10^3/uL (140-400) Neutrophils (%) (Auto) 61 % (31-73) Lymphocytes (%) (Auto) 28 % (24-48) Monocytes (%) (Auto) 9 % (0-9) Eosinophils (%) (Auto) 1 % (0-3) Basophils (%) (Auto) 1 % (0-3) Neutrophils # (Auto) 3.6 x10^3/uL (1.8-7.7) Lymphocytes # (Auto) 1.7 x10^3/uL (1.0-4.8) Monocytes # (Auto) 0.5 x10^3/uL (0.0-1.1) Eosinophils # (Auto) 0.1 x10^3/uL (0.0-0.7) Basophils # (Auto) 0.0 x10^3/uL (0.0-0.2) Sodium Level 146 mmol/L (136-145) Potassium Level 5.5 mmol/L (3.5-5.1) Chloride Level 112 mmol/L (98-107) Carbon Dioxide Level 16 mmol/L (21-32) Anion Gap 18 (6-14) Blood Urea Nitrogen 48 mg/dL (7-20) Creatinine 2.5 mg/dL (0.6-1.0) Estimated GFR (Cockcroft-Gault) 18.2 BUN/Creatinine Ratio 19 (6-20) Glucose Level 106 mg/dL (70-99) Calcium Level 8.4 mg/dL (8.5-10.1) Total Bilirubin 0.2 mg/dL (0.2-1.0) Aspartate Amino Transf (AST/SGOT) 25 U/L (15-37) Alanine Aminotransferase (ALT/SGPT) 10 U/L (14-59) Alkaline Phosphatase 75 U/L (46-116) Total Protein 6.4 g/dL (6.4-8.2) Albumin 2.7 g/dL (3.4-5.0) Albumin/Globulin Ratio 0.7 (1.0-1.7) Assessment/Plan SBO, improved aftter SBFT will continue clears for now Justicifation of Admission Dx: Justifications for Admission: Justification of Admission Dx: Yes ANDREW LINTON MD 11/29/19 1259: SURGICAL PROGRESS NOTE Assessment/Plan Pt seen and examined. Agree with Dirk's note Pt denies N/V and passing aggressive stools c/o back pain from bed cont supportive care, no surgical plans currently. BILL BECK APRN Nov 29, 2019 10:06 ANDREW LINTON MD Nov 29, 2019 12:59
[2019-11-29 11:06] VITALS: BP 129/59
[2019-11-29] MEDS: IV 1/2 NORMAL SALINE 1,000 ML IV SCH (11:16)
--- NOTE | 2019-11-29 14:13 | PDOC2 ---
GI CONSULT Reason For Consult: SBO vs ileus HPI: HPI: 88 y/o female who is mostly Niuean-speaking transferred to [facility] from [facility] on 11/24/19. Evaluated there w/ abdominal pain. 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 Has been followed by surgery here; has SBS on 11/26 (as below). Now taking clear liquids ("a little") and stooling (seems significant amount). Indicates no n/v and less abdominal pain to me though reports some central chest and left shoulder pain. Some communication barrier - no manager music phone present. Able to tell me h/o acid reflux - summary list shows omeprazole. Denies bleeding. Summary list also notes Benefiber and Meloxicam. Getting IV Reglan here for nausea. Seems to deny previous EGD or colonoscopy. Chart lists cholecystectomy - difficult to clarify. PMH: PMH: CAD, HTN, pulm fibrosis, RA, glaucoma, hypothyroidism ORIF left ankle, hernia repair, hysterectomy Social History: Smoke: No ALCOHOL: none Drugs: None ROS: GEN: Denies fevers, chills, sweats HEENT: Denies blurred vision, sore throat CV: Denies chest pain RESP: Denies shortness of air, cough GI: Per HPI : Denies hematuria, dysuria ENDO: Denies weight changes NEURO: Denies confusion, dizziness MSK: Denies weakness, joint pain/swelling SKIN: Denies jaundice, pruritus Vitals: Vitals: Vital Signs Date Time Temp Pulse Resp B/P (MAP) Pulse Ox O2 Delivery O2 Flow Rate FiO2 11/29/19 11:06 98.2 75 18 129/59 (82) 94 Room Air 98.2 Allergies: Coded Allergies: No Known Drug Allergies (Unverified , 10/26/14) Medications: Current Medications Medications (Trade) Dose Ordered Sig/Evelia Route PRN Reason Start Time Stop Time Status Last Admin Dose Admin Sodium Chloride 1,000 ml @ 50 mls/hr Q20H IV 11/28/19 14:00 11/29/19 11:16 Imaging: Imaging: KUB 11/24 Impression: Distended small bowel loops are present with transition within the lower pelvic region. Very distal small bowel is decompressed. Prolonged transit of contrast through the stomach and small bowel. Possibility of low-grade,partial, or intermittent obstruction at the lower pelvic, right distal small bowel region is is raised. Gastric and small bowel ileus alternatively is not excluded. Small sliding hiatal hernia with gastroesophageal reflux. Diverticulosis of the colon. CXR/KUB 11/25 IMPRESSION: Worsening bibasilar pulmonary fibrotic changes, more on the right than on the left. Additional findings of small bowel obstruction in the upper abdomen. IMPRESSION: Findings of small bowel obstruction without perforation, unchanged in the interval. SBS 11/26 Impression: Distended small bowel loops are present with transition within the lower pelvic region. Very distal small bowel is decompressed. Prolonged transit of contrast through the stomach and small bowel. Possibility of low-grade,partial, or intermittent obstruction at the lower pelvic, right distal small bowel region is is raised. Gastric and small bowel ileus alternatively is not excluded. Small sliding hiatal hernia with gastroesophageal reflux. Diverticulosis of the colon. PE: GEN: NAD, was asleep HEENT: Atraumatic, PERRL LUNGS: CTAB HEART: RRR ABD: hyperactive BS, soft, periumbilical soreness EXTREMITY: No edema SKIN: No rashes, no jaundice NEURO/PSYCH: A & O 3 A/P: A/P: SBO - resolving Normocytic anemia, BRITTANI (?CKD), hyperkalemia GERD, hiatal hernia CRC screen - unclear Diverticulosis ?SMA stenosis -- Now on liquid diet and stooling. Add PPI for h/o GERD. Continue per surgery. MAYUR JORDAN Nov 29, 2019 14:13
[2019-11-29 15:07] VITALS: BP 139/70
--- NOTE | 2019-11-29 17:24 | RAD ---
INDICATION: Reason: BRITTANI / Spl. Instructions: / History: COMPARISON: November 24, 2019 TECHNIQUE: Grayscale and color ultrasound images obtained of the bilateral kidneys and bladder. FINDINGS: Right Kidney: 96 mm. No hydronephrosis. Left Kidney: 101 mm. No hydronephrosis. Bladder: Largely decompressed Ascites is visualized. The renal cortex is echogenic. IMPRESSION: * No hydronephrosis. * Free fluid is identified, small amount. * Renal cortices are echogenic. Correlate for possible causes such as medical renal disease. Electronically signed by: Erik Winston MD (11/29/2019 5:21 PM) [id number]
[2019-11-29 18:40] LABS: ALBUMIN 2.6 g/dL (3.4-5.0); CALCIUM 8.1 mg/dL (8.5-10.1); CREATININE 1.9 mg/dL (0.6-1.0); PHOSPHORUS 2.2 mg/dL (2.6-4.7); POTASSIUM 4.2 mmol/L (3.5-5.1)
[2019-11-29 19:00] VITALS: BP 135/54
[2019-11-29] MEDS: PATCH REMOVAL. MC SCH (20:51)
[2019-11-29 23:00] VITALS: BP 122/60
[2019-11-30 03:00] VITALS: BP 136/61
[2019-11-30 03:30] LABS: BILIRUBIN,URINE NEGATIVE (NEG); CLARITY,URINE CLEAR; COLOR,URINE YELLOW; NITRITE,URINE NEGATIVE (NEG); PH,URINE 5.5 (<5.0-8.0); PROTEIN,URINE 30 mg/dL (NEG-TRACE); UROBILINOGEN,URINE 0.2 mg/dL (0.2 mg/dL)
[2019-11-30 03:41] LABS: SQUAMOUS EPITHELIAL CELL,UR OCC /LPF
[2019-11-30 03:42] LABS: AMORPHOUS SEDIMENT,UR PRESENT /HPF; BACTERIA,URINE 0 /HPF (0-FEW); RBC,URINE 20-40 /HPF (0-2)
[2019-11-30 03:47] LABS: BASO % 1 % (0-3); EOS # 0.2 x10^3/uL (0.0-0.7); EOS % 3 % (0-3); HEMATOCRIT 32.2 % (36.0-47.0); HEMOGLOBIN 10.5 g/dL (12.0-15.5); LYMPH % 33 % (24-48); MEAN CORPUSCULAR HEMOGLOBIN 31 pg (25-35); MEAN CORPUSCULAR HGB CONC 33 g/dL (31-37); MEAN CORPUSCULAR VOLUME 95 fL (79-100); MONO # 0.4 x10^3/uL (0.0-1.1); MONO % 7 % (0-9); NEUT # 3.5 x10^3/uL (1.8-7.7); NEUT % 57 % (31-73); PLATELET COUNT 223 x10^3/uL (140-400); WHITE BLOOD COUNT 6.1 x10^3/uL (4.0-11.0)
[2019-11-30 04:05] LABS: ALBUMIN 2.5 g/dL (3.4-5.0); ALBUMIN/GLOBULIN RATIO 0.7 (1.0-1.7); CALCIUM 8.3 mg/dL (8.5-10.1); CREATININE 1.7 mg/dL (0.6-1.0); GFR 28.4; POTASSIUM 4.2 mmol/L (3.5-5.1); TOTAL BILIRUBIN 0.2 mg/dL (0.2-1.0)
[2019-11-30] MEDS: METOCLOPRAMIDE HCL 10 MG/2 ML VIAL. IVP SCH ×4 (05:25→23:47)
[2019-11-30] MEDS: IV 1/2 NORMAL SALINE 1,000 ML IV SCH (05:25)
[2019-11-30] MEDS: HEPARIN for SUB-Q USE 5,000 UNIT/ML VIAL. SQ SCH ×3 (05:32→21:32)
[2019-11-30 07:00] VITALS: BP 136/65
[2019-11-30] MEDS: PANTOPRAZOLE 40 MG TABLET.DR. PO SCH (07:39)
[2019-11-30] MEDS: LIDOCAINE (700MG/PATCH) PATCH. TD SCH (07:40)
--- NOTE | 2019-11-30 08:25 | PDOC ---
PROGRESS NOTES Chief Complaint Chief Complaint impression SBO - cont NPO, pain control IV, f/u surgery recs Distended small bowel loops are present with transition within the lower pelvic region. Very distal small bowel is decompressed. Prolonged transit of contrast through the stomach and small bowel. Possibility of low-grade, partial, or intermittent obstruction at the lower pelvic, right distal small bowel region is is raised BRITTANI - vasomotor nephropathy Severe protein calorie malnutrition Small sliding hiatal hernia with gastroesophageal reflux. Diverticulosis of the colon. Hypothyroidism - IV to po HTN GERD Coronary artery calcification Bibasilar pulmonary fibrotic changes on chest x-ray PLAN FEN - liquid diet PPX - Lovenox FULL CODE Dispo - inpatient small bowel series 11/26 continue diet trial and observe. gi consult noted D/W RN History of Present Illness History of Present Illness Sr Al is an 88 yo Sister of Idania and lives with her community in [place] w/ PMHx GERD, Hypothyroidism, HTN. She awoke in the middle of the night 11/24/2019 with severe mid abdominal pain and projectile vomiting. She presented to the [facility] Emergency Department for evaluation and was found to have small bowel obstruction and transferred to [facility]. Creatinine noted 2.7, which had improved overnight to 2.3 with intravenous hydration. The patient denied any history of renal failure. CR improved to 2.2. No vomiting overnight still with pain states she passed gas. Now has some left-sided back pain was not able to sleep well. Afebrile no shortness of breath or cough. KUB with SBO. CXR with worsening basilar fibrotic changes. Vitals Vitals Vital Signs Date Time Temp Pulse Resp B/P (MAP) Pulse Ox O2 Delivery O2 Flow Rate FiO2 11/30/19 07:00 97.5 74 18 136/65 (88) 98 Room Air 97.5 Physical Exam General: Alert, Oriented X3, Cooperative, No acute distress Heart: Regular rate, Normal S1, Normal S2 Lungs: Clear Abdomen: Normal bowel sounds, Soft, Other (ND, mild ttp upper abdomen ) Extremities: No clubbing, No cyanosis Skin: No rashes, No breakdown Labs LABS Laboratory Tests Test 11/29/19 17:42 11/30/19 02:14 11/30/19 02:47 Sodium Level 143 mmol/L (136-145) 141 mmol/L (136-145) Potassium Level 4.2 mmol/L (3.5-5.1) 4.2 mmol/L (3.5-5.1) Chloride Level 112 mmol/L (98-107) 110 mmol/L (98-107) Carbon Dioxide Level 23 mmol/L (21-32) 17 mmol/L (21-32) Anion Gap 8 (6-14) 14 (6-14) Blood Urea Nitrogen 34 mg/dL (7-20) 32 mg/dL (7-20) Creatinine 1.9 mg/dL (0.6-1.0) 1.7 mg/dL (0.6-1.0) Estimated GFR (Cockcroft-Gault) 25.0 28.4 Glucose Level 84 mg/dL (70-99) 69 mg/dL (70-99) Calcium Level 8.1 mg/dL (8.5-10.1) 8.3 mg/dL (8.5-10.1) Phosphorus Level 2.2 mg/dL (2.6-4.7) Albumin 2.6 g/dL (3.4-5.0) 2.5 g/dL (3.4-5.0) Urine Collection Type Unknown Urine Color Yellow Urine Clarity Clear Urine pH 5.5 (<5.0-8.0) Urine Specific [place] 1.015 (1.000-1.030) Urine Protein 30 mg/dL (NEG-TRACE) Urine Glucose (UA) Negative mg/dL (NEG) Urine Ketones (Stick) Trace mg/dL (NEG) Urine Blood Large (NEG) Urine Nitrite Negative (NEG) Urine Bilirubin Negative (NEG) Urine Urobilinogen Dipstick 0.2 mg/dL (0.2 mg/dL) Urine Leukocyte Esterase Negative (NEG) Urine RBC 20-40 /HPF (0-2) Urine WBC 1-4 /HPF (0-4) Urine Squamous Epithelial Cells Occ /LPF Urine Amorphous Sediment Present /HPF Urine Bacteria 0 /HPF (0-FEW) Urine Mucus Slight /LPF White Blood Count 6.1 x10^3/uL (4.0-11.0) Red Blood Count 3.40 x10^6/uL (3.50-5.40) Hemoglobin 10.5 g/dL (12.0-15.5) Hematocrit 32.2 % (36.0-47.0) Mean Corpuscular Volume 95 fL (79-100) Mean Corpuscular Hemoglobin 31 pg (25-35) Mean Corpuscular Hemoglobin Concent 33 g/dL (31-37) Red Cell Distribution Width 15.0 % (11.5-14.5) Platelet Count 223 x10^3/uL (140-400) Neutrophils (%) (Auto) 57 % (31-73) Lymphocytes (%) (Auto) 33 % (24-48) Monocytes (%) (Auto) 7 % (0-9) Eosinophils (%) (Auto) 3 % (0-3) Basophils (%) (Auto) 1 % (0-3) Neutrophils # (Auto) 3.5 x10^3/uL (1.8-7.7) Lymphocytes # (Auto) 2.0 x10^3/uL (1.0-4.8) Monocytes # (Auto) 0.4 x10^3/uL (0.0-1.1) Eosinophils # (Auto) 0.2 x10^3/uL (0.0-0.7) Basophils # (Auto) 0.0 x10^3/uL (0.0-0.2) BUN/Creatinine Ratio 19 (6-20) Total Bilirubin 0.2 mg/dL (0.2-1.0) Aspartate Amino Transf (AST/SGOT) 30 U/L (15-37) Alanine Aminotransferase (ALT/SGPT) 10 U/L (14-59) Alkaline Phosphatase 69 U/L (46-116) Total Protein 6.0 g/dL (6.4-8.2) Albumin/Globulin Ratio 0.7 (1.0-1.7) Comment Review of Relevant I have reviewed the following items mercedes (where applicable) has been applied. Labs Laboratory Tests Test 11/29/19 17:42 11/30/19 02:14 11/30/19 02:47 Sodium Level 143 mmol/L (136-145) 141 mmol/L (136-145) Potassium Level 4.2 mmol/L (3.5-5.1) 4.2 mmol/L (3.5-5.1) Chloride Level 112 mmol/L (98-107) 110 mmol/L (98-107) Carbon Dioxide Level 23 mmol/L (21-32) 17 mmol/L (21-32) Anion Gap 8 (6-14) 14 (6-14) Blood Urea Nitrogen 34 mg/dL (7-20) 32 mg/dL (7-20) Creatinine 1.9 mg/dL (0.6-1.0) 1.7 mg/dL (0.6-1.0) Estimated GFR (Cockcroft-Gault) 25.0 28.4 Glucose Level 84 mg/dL (70-99) 69 mg/dL (70-99) Calcium Level 8.1 mg/dL (8.5-10.1) 8.3 mg/dL (8.5-10.1) Phosphorus Level 2.2 mg/dL (2.6-4.7) Albumin 2.6 g/dL (3.4-5.0) 2.5 g/dL (3.4-5.0) Urine Collection Type Unknown Urine Color Yellow Urine Clarity Clear Urine pH 5.5 (<5.0-8.0) Urine Specific [place] 1.015 (1.000-1.030) Urine Protein 30 mg/dL (NEG-TRACE) Urine Glucose (UA) Negative mg/dL (NEG) Urine Ketones (Stick) Trace mg/dL (NEG) Urine Blood Large (NEG) Urine Nitrite Negative (NEG) Urine Bilirubin Negative (NEG) Urine Urobilinogen Dipstick 0.2 mg/dL (0.2 mg/dL) Urine Leukocyte Esterase Negative (NEG) Urine RBC 20-40 /HPF (0-2) Urine WBC 1-4 /HPF (0-4) Urine Squamous Epithelial Cells Occ /LPF Urine Amorphous Sediment Present /HPF Urine Bacteria 0 /HPF (0-FEW) Urine Mucus Slight /LPF White Blood Count 6.1 x10^3/uL (4.0-11.0) Red Blood Count 3.40 x10^6/uL (3.50-5.40) Hemoglobin 10.5 g/dL (12.0-15.5) Hematocrit 32.2 % (36.0-47.0) Mean Corpuscular Volume 95 fL (79-100) Mean Corpuscular Hemoglobin 31 pg (25-35) Mean Corpuscular Hemoglobin Concent 33 g/dL (31-37) Red Cell Distribution Width 15.0 % (11.5-14.5) Platelet Count 223 x10^3/uL (140-400) Neutrophils (%) (Auto) 57 % (31-73) Lymphocytes (%) (Auto) 33 % (24-48) Monocytes (%) (Auto) 7 % (0-9) Eosinophils (%) (Auto) 3 % (0-3) Basophils (%) (Auto) 1 % (0-3) Neutrophils # (Auto) 3.5 x10^3/uL (1.8-7.7) Lymphocytes # (Auto) 2.0 x10^3/uL (1.0-4.8) Monocytes # (Auto) 0.4 x10^3/uL (0.0-1.1) Eosinophils # (Auto) 0.2 x10^3/uL (0.0-0.7) Basophils # (Auto) 0.0 x10^3/uL (0.0-0.2) BUN/Creatinine Ratio 19 (6-20) Total Bilirubin 0.2 mg/dL (0.2-1.0) Aspartate Amino Transf (AST/SGOT) 30 U/L (15-37) Alanine Aminotransferase (ALT/SGPT) 10 U/L (14-59) Alkaline Phosphatase 69 U/L (46-116) Total Protein 6.0 g/dL (6.4-8.2) Albumin/Globulin Ratio 0.7 (1.0-1.7) Laboratory Tests Test 11/29/19 17:42 11/30/19 02:14 11/30/19 02:47 Sodium Level 143 mmol/L (136-145) 141 mmol/L (136-145) Potassium Level 4.2 mmol/L (3.5-5.1) 4.2 mmol/L (3.5-5.1) Chloride Level 112 mmol/L (98-107) 110 mmol/L (98-107) Carbon Dioxide Level 23 mmol/L (21-32) 17 mmol/L (21-32) Anion Gap 8 (6-14) 14 (6-14) Blood Urea Nitrogen 34 mg/dL (7-20) 32 mg/dL (7-20) Creatinine 1.9 mg/dL (0.6-1.0) 1.7 mg/dL (0.6-1.0) Estimated GFR (Cockcroft-Gault) 25.0 28.4 Glucose Level 84 mg/dL (70-99) 69 mg/dL (70-99) Calcium Level 8.1 mg/dL (8.5-10.1) 8.3 mg/dL (8.5-10.1) Phosphorus Level 2.2 mg/dL (2.6-4.7) Albumin 2.6 g/dL (3.4-5.0) 2.5 g/dL (3.4-5.0) Urine Collection Type Unknown Urine Color Yellow Urine Clarity Clear Urine pH 5.5 (<5.0-8.0) Urine Specific [place] 1.015 (1.000-1.030) Urine Protein 30 mg/dL (NEG-TRACE) Urine Glucose (UA) Negative mg/dL (NEG) Urine Ketones (Stick) Trace mg/dL (NEG) Urine Blood Large (NEG) Urine Nitrite Negative (NEG) Urine Bilirubin Negative (NEG) Urine Urobilinogen Dipstick 0.2 mg/dL (0.2 mg/dL) Urine Leukocyte Esterase Negative (NEG) Urine RBC 20-40 /HPF (0-2) Urine WBC 1-4 /HPF (0-4) Urine Squamous Epithelial Cells Occ /LPF Urine Amorphous Sediment Present /HPF Urine Bacteria 0 /HPF (0-FEW) Urine Mucus Slight /LPF White Blood Count 6.1 x10^3/uL (4.0-11.0) Red Blood Count 3.40 x10^6/uL (3.50-5.40) Hemoglobin 10.5 g/dL (12.0-15.5) Hematocrit 32.2 % (36.0-47.0) Mean Corpuscular Volume 95 fL (79-100) Mean Corpuscular Hemoglobin 31 pg (25-35) Mean Corpuscular Hemoglobin Concent 33 g/dL (31-37) Red Cell Distribution Width 15.0 % (11.5-14.5) Platelet Count 223 x10^3/uL (140-400) Neutrophils (%) (Auto) 57 % (31-73) Lymphocytes (%) (Auto) 33 % (24-48) Monocytes (%) (Auto) 7 % (0-9) Eosinophils (%) (Auto) 3 % (0-3) Basophils (%) (Auto) 1 % (0-3) Neutrophils # (Auto) 3.5 x10^3/uL (1.8-7.7) Lymphocytes # (Auto) 2.0 x10^3/uL (1.0-4.8) Monocytes # (Auto) 0.4 x10^3/uL (0.0-1.1) Eosinophils # (Auto) 0.2 x10^3/uL (0.0-0.7) Basophils # (Auto) 0.0 x10^3/uL (0.0-0.2) BUN/Creatinine Ratio 19 (6-20) Total Bilirubin 0.2 mg/dL (0.2-1.0) Aspartate Amino Transf (AST/SGOT) 30 U/L (15-37) Alanine Aminotransferase (ALT/SGPT) 10 U/L (14-59) Alkaline Phosphatase 69 U/L (46-116) Total Protein 6.0 g/dL (6.4-8.2) Albumin/Globulin Ratio 0.7 (1.0-1.7) Medications Current Medications Ringer's Solution 1,000 ml @ 100 mls/hr Q10H IV Last administered on 11/24/19at 23:17; Start 11/24/19 at 22:43; Stop 11/25/19 at 19:26; Status DC Ondansetron HCl (Zofran) 4 mg PRN Q4HRS PRN IVP NAUSEA/VOMITING Last administered on 11/29/19at 03:36; Start 11/24/19 at 22:45 Morphine Sulfate (Morphine Sulfate) 2 mg PRN Q3HRS PRN IV PAIN Last administered on 11/27/19at 07:13; Start 11/24/19 at 22:45 Benzocaine (Hurricaine One) 1 spray 1X ONCE MM Last administered on 11/24/19at 23:17; Start 11/24/19 at 23:00; Stop 11/24/19 at 23:02; Status DC Hydralazine HCl (Apresoline Inj) 5 mg PRN Q6HRS PRN IVP ELEVATED BP, SEE COMMENTS; Start 11/25/19 at 00:45 Sodium Chloride 1,000 ml @ 125 mls/hr 1X ONCE IV Last administered on 11/25/19at 10:03; Start 11/25/19 at 09:30; Stop 11/25/19 at 17:29; Status DC Sodium Chloride 1,000 ml @ 100 mls/hr Q10H IV Last administered on 11/27/19at 21:19; Start 11/25/19 at 19:30; Stop 11/28/19 at 13:43; Status DC Lidocaine (Lidoderm) 1 patch DAILY TD Last administered on 11/30/19at 07:40; Start 11/26/19 at 09:45 Miscellaneous (Lidoderm Patch Removal) 1 ea QHS MC Last administered on 11/29/19at 20:51; Start 11/26/19 at 21:00 Heparin Sodium (Porcine) (Heparin Sodium) 5,000 unit Q8HRS SQ Last administered on 11/30/19at 05:32; Start 11/26/19 at 10:00 Albuterol Sulfate (Ventolin Neb Soln) 2.5 mg PRN Q6HRS PRN INH SHORTNESS OF BREATH; Start 11/26/19 at 09:45 Levothyroxine Sodium 50 mcg/ Sodium Chloride 5 ml @ 100 mls/hr Q3DAYS IV Last administered on 11/29/19at 08:46; Start 11/26/19 at 09:45 Iohexol (Omnipaque 300 Mg/ml) 400 ml 1X ONCE PO Last administered on 11/27/19at 07:00; Start 11/27/19 at 07:00; Stop 11/27/19 at 07:01; Status DC Info (CONTRAST GIVEN -- Rx MONITORING) 1 each PRN DAILY PRN MC SEE COMMENTS; Start 11/27/19 at 07:00; Stop 11/29/19 at 06:59; Status DC Metoclopramide HCl (Reglan Vial) 5 mg Q6HRS IVP Last administered on 11/30/19at 05:25; Start 11/28/19 at 00:00 Potassium Chloride/Dextrose/ Sod Cl 1,000 ml @ 100 mls/hr Q10H IV Last administered on 11/28/19at 00:00; Start 11/27/19 at 23:30; Stop 11/28/19 at 13:43; Status DC Fentanyl Citrate (Fentanyl 2ml Vial) 25 mcg PRN Q5MIN PRN IV MILD PAIN 1-3; Start 11/28/19 at 10:30; Stop 11/28/19 at 20:00; Status DC Fentanyl Citrate (Fentanyl 2ml Vial) 50 mcg PRN Q5MIN PRN IV MODERATE TO SEVERE PAIN; Start 11/28/19 at 10:30; Stop 11/28/19 at 20:00; Status DC Morphine Sulfate (Morphine Sulfate) 1 mg PRN Q10MIN PRN IV SEVERE PAIN 7-10; Start 11/28/19 at 10:30; Stop 11/28/19 at 20:00; Status DC Ringer's Solution 1,000 ml @ 30 mls/hr Q24H IV ; Start 11/28/19 at 10:29; Stop 11/28/19 at 22:28; Status DC Hydromorphone HCl (Dilaudid) 0.5 mg PRN Q10MIN PRN IV SEV PAIN, Second choice; Start 11/28/19 at 10:30; Stop 11/28/19 at 20:00; Status DC Sodium Chloride 1,000 ml @ 50 mls/hr Q20H IV Last administered on 11/30/19at 05:25; Start 11/28/19 at 14:00 Pantoprazole Sodium (Protonix) 40 mg DAILYAC PO Last administered on 11/30/19at 07:39; Start 11/30/19 at 07:30 Active Scripts Active Reported Omeprazole 20 Mg Tablet.dr 1 Tab PO DAILY Levothyroxine Sodium 50 Mcg Tablet 50 Mcg PO DAILYAC Benefiber (Wheat Dextrin) 1 Each Powd.pack 1 Each PO BID Albuterol Sulfate Neb Soln (Albuterol Sulfate) 2.5 Mg/3 Ml Vial.neb 2.5 Mg NEB Pred Forte (Prednisolone Acetate) 1 Ml Drops.susp 1 Ml OP Proair Hfa Inhaler (Albuterol Sulfate) 8.5 Gm Hfa.aer.ad 1 Puff INH PRN Q6HRS PRN Losartan Potassium 50 Mg Tablet 1 Tab PO DAILY Hydroxychloroquine Sulfate 200 Mg Tablet 200 Mg PO DAILY Levothyroxine Sodium 50 Mcg Tablet 1 Tab PO DAILY Meloxicam 7.5 Mg Tablet 1 Tab PO DAILY Vitals/I & O Vital Sign - Last 24 Hours 11/29/19 11/29/19 11/29/19 11/29/19 11:06 15:07 19:00 20:00 Temp 98.2 98.4 98.0 98.2 98.4 98.0 Pulse 75 74 79 Resp 18 18 18 B/P (MAP) 129/59 (82) 139/70 (93) 135/54 (81) Pulse Ox 94 97 96 O2 Delivery Room Air Room Air Room Air Room Air 11/29/19 11/30/19 11/30/19 23:00 03:00 07:00 Temp 98.0 98.1 97.5 98.0 98.1 97.5 Pulse 74 71 74 Resp 18 18 18 B/P (MAP) 122/60 (80) 136/61 (86) 136/65 (88) Pulse Ox 94 97 98 O2 Delivery Room Air Room Air Room Air Intake and Output 11/29/19 11/29/19 11/30/19 15:00 23:00 07:00 Intake Total 1255 ml 250 ml 50 ml Output Total 450 ml Balance 1255 ml 250 ml -400 ml Justicifation of Admission Dx: Justifications for Admission: Justification of Admission Dx: Yes FRANKLYN VALENCIA MD Nov 30, 2019 08:25
--- NOTE | 2019-11-30 08:48 | NUR ---
SW following. Discussed with RN, pt on clear liquid diet, has had BM. No surgical plans at this time. RN anticipates pt may be ready to discharge back home today. BRANDON will continue to follow.
--- NOTE | 2019-11-30 09:07 | PDOC ---
BILL BECK RAT POISONER 11/30/19 0907: SURGICAL PROGRESS NOTE Subjective feels better today had stool tolerating clears Vital Signs Vital Signs Date Time Temp Pulse Resp B/P (MAP) Pulse Ox O2 Delivery O2 Flow Rate FiO2 11/30/19 08:00 Room Air 11/30/19 07:00 97.5 74 18 136/65 (88) 98 97.5 I&O Intake and Output 11/30/19 07:00 Intake Total 1555 ml Output Total 450 ml Balance 1105 ml Intake Oral 550 ml IV Total 1005 ml Output Urine Total 450 ml # Voids 3 # Bowel Movements 2 General: Alert, Oriented X3, Cooperative Abdomen: Soft, No tenderness Labs Laboratory Tests Test 11/29/19 17:42 11/30/19 02:14 11/30/19 02:47 Sodium Level 143 mmol/L (136-145) 141 mmol/L (136-145) Potassium Level 4.2 mmol/L (3.5-5.1) 4.2 mmol/L (3.5-5.1) Chloride Level 112 mmol/L (98-107) 110 mmol/L (98-107) Carbon Dioxide Level 23 mmol/L (21-32) 17 mmol/L (21-32) Anion Gap 8 (6-14) 14 (6-14) Blood Urea Nitrogen 34 mg/dL (7-20) 32 mg/dL (7-20) Creatinine 1.9 mg/dL (0.6-1.0) 1.7 mg/dL (0.6-1.0) Estimated GFR (Cockcroft-Gault) 25.0 28.4 Glucose Level 84 mg/dL (70-99) 69 mg/dL (70-99) Calcium Level 8.1 mg/dL (8.5-10.1) 8.3 mg/dL (8.5-10.1) Phosphorus Level 2.2 mg/dL (2.6-4.7) Albumin 2.6 g/dL (3.4-5.0) 2.5 g/dL (3.4-5.0) Urine Collection Type Unknown Urine Color Yellow Urine Clarity Clear Urine pH 5.5 (<5.0-8.0) Urine Specific [place] 1.015 (1.000-1.030) Urine Protein 30 mg/dL (NEG-TRACE) Urine Glucose (UA) Negative mg/dL (NEG) Urine Ketones (Stick) Trace mg/dL (NEG) Urine Blood Large (NEG) Urine Nitrite Negative (NEG) Urine Bilirubin Negative (NEG) Urine Urobilinogen Dipstick 0.2 mg/dL (0.2 mg/dL) Urine Leukocyte Esterase Negative (NEG) Urine RBC 20-40 /HPF (0-2) Urine WBC 1-4 /HPF (0-4) Urine Squamous Epithelial Cells Occ /LPF Urine Amorphous Sediment Present /HPF Urine Bacteria 0 /HPF (0-FEW) Urine Mucus Slight /LPF White Blood Count 6.1 x10^3/uL (4.0-11.0) Red Blood Count 3.40 x10^6/uL (3.50-5.40) Hemoglobin 10.5 g/dL (12.0-15.5) Hematocrit 32.2 % (36.0-47.0) Mean Corpuscular Volume 95 fL (79-100) Mean Corpuscular Hemoglobin 31 pg (25-35) Mean Corpuscular Hemoglobin Concent 33 g/dL (31-37) Red Cell Distribution Width 15.0 % (11.5-14.5) Platelet Count 223 x10^3/uL (140-400) Neutrophils (%) (Auto) 57 % (31-73) Lymphocytes (%) (Auto) 33 % (24-48) Monocytes (%) (Auto) 7 % (0-9) Eosinophils (%) (Auto) 3 % (0-3) Basophils (%) (Auto) 1 % (0-3) Neutrophils # (Auto) 3.5 x10^3/uL (1.8-7.7) Lymphocytes # (Auto) 2.0 x10^3/uL (1.0-4.8) Monocytes # (Auto) 0.4 x10^3/uL (0.0-1.1) Eosinophils # (Auto) 0.2 x10^3/uL (0.0-0.7) Basophils # (Auto) 0.0 x10^3/uL (0.0-0.2) BUN/Creatinine Ratio 19 (6-20) Total Bilirubin 0.2 mg/dL (0.2-1.0) Aspartate Amino Transf (AST/SGOT) 30 U/L (15-37) Alanine Aminotransferase (ALT/SGPT) 10 U/L (14-59) Alkaline Phosphatase 69 U/L (46-116) Total Protein 6.0 g/dL (6.4-8.2) Albumin/Globulin Ratio 0.7 (1.0-1.7) Laboratory Tests Test 11/29/19 17:42 11/30/19 02:14 11/30/19 02:47 Sodium Level 143 mmol/L (136-145) 141 mmol/L (136-145) Potassium Level 4.2 mmol/L (3.5-5.1) 4.2 mmol/L (3.5-5.1) Chloride Level 112 mmol/L (98-107) 110 mmol/L (98-107) Carbon Dioxide Level 23 mmol/L (21-32) 17 mmol/L (21-32) Anion Gap 8 (6-14) 14 (6-14) Blood Urea Nitrogen 34 mg/dL (7-20) 32 mg/dL (7-20) Creatinine 1.9 mg/dL (0.6-1.0) 1.7 mg/dL (0.6-1.0) Estimated GFR (Cockcroft-Gault) 25.0 28.4 Glucose Level 84 mg/dL (70-99) 69 mg/dL (70-99) Calcium Level 8.1 mg/dL (8.5-10.1) 8.3 mg/dL (8.5-10.1) Phosphorus Level 2.2 mg/dL (2.6-4.7) Albumin 2.6 g/dL (3.4-5.0) 2.5 g/dL (3.4-5.0) Urine Collection Type Unknown Urine Color Yellow Urine Clarity Clear Urine pH 5.5 (<5.0-8.0) Urine Specific [place] 1.015 (1.000-1.030) Urine Protein 30 mg/dL (NEG-TRACE) Urine Glucose (UA) Negative mg/dL (NEG) Urine Ketones (Stick) Trace mg/dL (NEG) Urine Blood Large (NEG) Urine Nitrite Negative (NEG) Urine Bilirubin Negative (NEG) Urine Urobilinogen Dipstick 0.2 mg/dL (0.2 mg/dL) Urine Leukocyte Esterase Negative (NEG) Urine RBC 20-40 /HPF (0-2) Urine WBC 1-4 /HPF (0-4) Urine Squamous Epithelial Cells Occ /LPF Urine Amorphous Sediment Present /HPF Urine Bacteria 0 /HPF (0-FEW) Urine Mucus Slight /LPF White Blood Count 6.1 x10^3/uL (4.0-11.0) Red Blood Count 3.40 x10^6/uL (3.50-5.40) Hemoglobin 10.5 g/dL (12.0-15.5) Hematocrit 32.2 % (36.0-47.0) Mean Corpuscular Volume 95 fL (79-100) Mean Corpuscular Hemoglobin 31 pg (25-35) Mean Corpuscular Hemoglobin Concent 33 g/dL (31-37) Red Cell Distribution Width 15.0 % (11.5-14.5) Platelet Count 223 x10^3/uL (140-400) Neutrophils (%) (Auto) 57 % (31-73) Lymphocytes (%) (Auto) 33 % (24-48) Monocytes (%) (Auto) 7 % (0-9) Eosinophils (%) (Auto) 3 % (0-3) Basophils (%) (Auto) 1 % (0-3) Neutrophils # (Auto) 3.5 x10^3/uL (1.8-7.7) Lymphocytes # (Auto) 2.0 x10^3/uL (1.0-4.8) Monocytes # (Auto) 0.4 x10^3/uL (0.0-1.1) Eosinophils # (Auto) 0.2 x10^3/uL (0.0-0.7) Basophils # (Auto) 0.0 x10^3/uL (0.0-0.2) BUN/Creatinine Ratio 19 (6-20) Total Bilirubin 0.2 mg/dL (0.2-1.0) Aspartate Amino Transf (AST/SGOT) 30 U/L (15-37) Alanine Aminotransferase (ALT/SGPT) 10 U/L (14-59) Alkaline Phosphatase 69 U/L (46-116) Total Protein 6.0 g/dL (6.4-8.2) Albumin/Globulin Ratio 0.7 (1.0-1.7) Assessment/Plan improved advance diet Justicifation of Admission Dx: Justifications for Admission: Justification of Admission Dx: Yes ANDREW LINTON MD 11/30/19 0950: SURGICAL PROGRESS NOTE Assessment/Plan Pt reports feeling better, eliazar PO having stools abd soft, ND, NTTP ADAT possible d/c in AM BILL BECK APRN Nov 30, 2019 09:07 ANDREW LINTON MD Nov 30, 2019 09:50
[2019-11-30 11:00] VITALS: BP 135/61
--- NOTE | 2019-11-30 11:06 | PDOC ---
Subjective: Subjective: Indicates "a little" stool and abdominal pain to me. Objective: Vital Signs: Vital Signs Date Time Temp Pulse Resp B/P (MAP) Pulse Ox O2 Delivery O2 Flow Rate FiO2 11/30/19 11:00 98.0 81 18 135/61 (85) 98 Room Air 98.0 Labs: Laboratory Tests Test 11/29/19 17:42 11/30/19 02:14 11/30/19 02:47 Sodium Level 143 mmol/L 141 mmol/L Potassium Level 4.2 mmol/L 4.2 mmol/L Chloride Level 112 mmol/L 110 mmol/L Carbon Dioxide Level 23 mmol/L 17 mmol/L Anion Gap 8 14 Blood Urea Nitrogen 34 mg/dL 32 mg/dL Creatinine 1.9 mg/dL 1.7 mg/dL Estimated GFR (Cockcroft-Gault) 25.0 28.4 Glucose Level 84 mg/dL 69 mg/dL Calcium Level 8.1 mg/dL 8.3 mg/dL Phosphorus Level 2.2 mg/dL Albumin 2.6 g/dL 2.5 g/dL Urine Collection Type Unknown Urine Color Yellow Urine Clarity Clear Urine pH 5.5 Urine Specific [place] 1.015 Urine Protein 30 mg/dL Urine Glucose (UA) Negative mg/dL Urine Ketones (Stick) Trace mg/dL Urine Blood Large Urine Nitrite Negative Urine Bilirubin Negative Urine Urobilinogen Dipstick 0.2 mg/dL Urine Leukocyte Esterase Negative Urine RBC 20-40 /HPF Urine WBC 1-4 /HPF Urine Squamous Epithelial Cells Occ /LPF Urine Amorphous Sediment Present /HPF Urine Bacteria 0 /HPF Urine Mucus Slight /LPF White Blood Count 6.1 x10^3/uL Red Blood Count 3.40 x10^6/uL Hemoglobin 10.5 g/dL Hematocrit 32.2 % Mean Corpuscular Volume 95 fL Mean Corpuscular Hemoglobin 31 pg Mean Corpuscular Hemoglobin Concent 33 g/dL Red Cell Distribution Width 15.0 % Platelet Count 223 x10^3/uL Neutrophils (%) (Auto) 57 % Lymphocytes (%) (Auto) 33 % Monocytes (%) (Auto) 7 % Eosinophils (%) (Auto) 3 % Basophils (%) (Auto) 1 % Neutrophils # (Auto) 3.5 x10^3/uL Lymphocytes # (Auto) 2.0 x10^3/uL Monocytes # (Auto) 0.4 x10^3/uL Eosinophils # (Auto) 0.2 x10^3/uL Basophils # (Auto) 0.0 x10^3/uL BUN/Creatinine Ratio 19 Total Bilirubin 0.2 mg/dL Aspartate Amino Transf (AST/SGOT) 30 U/L Alanine Aminotransferase (ALT/SGPT) 10 U/L Alkaline Phosphatase 69 U/L Total Protein 6.0 g/dL Albumin/Globulin Ratio 0.7 Imaging: Renal US IMPRESSION: * No hydronephrosis. * Free fluid is identified, small amount. * Renal cortices are echogenic. Correlate for possible causes such as medical renal disease. PE: GEN: NAD, was resting LUNGS: CTAB HEART: RRR ABD: less active BS today, periumbilical discomfort NEURO/PSYCH: A & O 3, mostly speaks [place] A/P: SBO - resolving Normocytic anemia (recent 'scopes w/ Dr. El), BRITTANI (better) -- Diet to advance per surgery. Continue PPI. Justicifation of Admission Dx: Justifications for Admission: Justification of Admission Dx: Yes MAYUR JORDAN Nov 30, 2019 11:06
--- NOTE | 2019-11-30 11:22 | PDOC2 ---
CONSULT Date of Consult Date of Consult DATE: 11/30/19 TIME: 11:08 Reason for Consult Reason for Consult: BRITTANI Source Source: Chart review History of Present Illness Reason for Visit: Pt is a 88 y/o female who is mostly Azeri-speaking transferred to [facility] from [facility] on 11/24/19. She presented with c/o waking up in the middle of the night with severs abdominal pain and projectile vomiting She is a Sister of Idania and lives with her community in [place]. 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 Has been followed by surgery here Denies any n/v and no abdominal pain Per home med list on meloxicam . Currently denies any urinary complaints. Having BM, tolerating clear fluid. No SOB or CP At presentation UA with microscopic hematuria -? Not sure if Lamb sample Past Medical History Cardiovascular: Hyperlipidemia Pulmonary: Other (pulm fibrosis) Heme/Onc: Anemia NOS Past Surgical History Past Surgical History: Other (pt reports groin hernia repair, lower abd surgery scar c/w hysterectomy and uterus not confidently seen on imaging.) Family History Family History Non Contributory Family History: No Significant Social History No ALCOHOL: none Drugs: None Lives: Roommate Current Medications Current Medications Current Medications Ringer's Solution 1,000 ml @ 100 mls/hr Q10H IV Last administered on 11/24/19at 23:17; Start 11/24/19 at 22:43; Stop 11/25/19 at 19:26; Status DC Ondansetron HCl (Zofran) 4 mg PRN Q4HRS PRN IVP NAUSEA/VOMITING Last administered on 11/29/19at 03:36; Start 11/24/19 at 22:45 Morphine Sulfate (Morphine Sulfate) 2 mg PRN Q3HRS PRN IV PAIN Last administered on 11/27/19at 07:13; Start 11/24/19 at 22:45 Benzocaine (Hurricaine One) 1 spray 1X ONCE MM Last administered on 11/24/19at 23:17; Start 11/24/19 at 23:00; Stop 11/24/19 at 23:02; Status DC Hydralazine HCl (Apresoline Inj) 5 mg PRN Q6HRS PRN IVP ELEVATED BP, SEE COMMENTS; Start 11/25/19 at 00:45 Sodium Chloride 1,000 ml @ 125 mls/hr 1X ONCE IV Last administered on 11/25/19at 10:03; Start 11/25/19 at 09:30; Stop 11/25/19 at 17:29; Status DC Sodium Chloride 1,000 ml @ 100 mls/hr Q10H IV Last administered on 11/27/19at 21:19; Start 11/25/19 at 19:30; Stop 11/28/19 at 13:43; Status DC Lidocaine (Lidoderm) 1 patch DAILY TD Last administered on 11/30/19at 07:40; Start 11/26/19 at 09:45 Miscellaneous (Lidoderm Patch Removal) 1 ea QHS MC Last administered on 11/29/19at 20:51; Start 11/26/19 at 21:00 Heparin Sodium (Porcine) (Heparin Sodium) 5,000 unit Q8HRS SQ Last administered on 11/30/19at 05:32; Start 11/26/19 at 10:00 Albuterol Sulfate (Ventolin Neb Soln) 2.5 mg PRN Q6HRS PRN INH SHORTNESS OF BREATH; Start 11/26/19 at 09:45 Levothyroxine Sodium 50 mcg/ Sodium Chloride 5 ml @ 100 mls/hr Q3DAYS IV Last administered on 11/29/19at 08:46; Start 11/26/19 at 09:45 Iohexol (Omnipaque 300 Mg/ml) 400 ml 1X ONCE PO Last administered on 11/27/19at 07:00; Start 11/27/19 at 07:00; Stop 11/27/19 at 07:01; Status DC Info (CONTRAST GIVEN -- Rx MONITORING) 1 each PRN DAILY PRN MC SEE COMMENTS; Start 11/27/19 at 07:00; Stop 11/29/19 at 06:59; Status DC Metoclopramide HCl (Reglan Vial) 5 mg Q6HRS IVP Last administered on 11/30/19at 05:25; Start 11/28/19 at 00:00 Potassium Chloride/Dextrose/ Sod Cl 1,000 ml @ 100 mls/hr Q10H IV Last administered on 11/28/19at 00:00; Start 11/27/19 at 23:30; Stop 11/28/19 at 13:43; Status DC Fentanyl Citrate (Fentanyl 2ml Vial) 25 mcg PRN Q5MIN PRN IV MILD PAIN 1-3; Start 11/28/19 at 10:30; Stop 11/28/19 at 20:00; Status DC Fentanyl Citrate (Fentanyl 2ml Vial) 50 mcg PRN Q5MIN PRN IV MODERATE TO SEVERE PAIN; Start 11/28/19 at 10:30; Stop 11/28/19 at 20:00; Status DC Morphine Sulfate (Morphine Sulfate) 1 mg PRN Q10MIN PRN IV SEVERE PAIN 7-10; Start 11/28/19 at 10:30; Stop 11/28/19 at 20:00; Status DC Ringer's Solution 1,000 ml @ 30 mls/hr Q24H IV ; Start 11/28/19 at 10:29; Stop 11/28/19 at 22:28; Status DC Hydromorphone HCl (Dilaudid) 0.5 mg PRN Q10MIN PRN IV SEV PAIN, Second choice; Start 11/28/19 at 10:30; Stop 11/28/19 at 20:00; Status DC Sodium Chloride 1,000 ml @ 50 mls/hr Q20H IV Last administered on 11/30/19at 05:25; Start 11/28/19 at 14:00 Pantoprazole Sodium (Protonix) 40 mg DAILYAC PO Last administered on 11/30/19at 07:39; Start 11/30/19 at 07:30 Active Scripts Active Reported Omeprazole 20 Mg Tablet.dr 1 Tab PO DAILY Levothyroxine Sodium 50 Mcg Tablet 50 Mcg PO DAILYAC Benefiber (Wheat Dextrin) 1 Each Powd.pack 1 Each PO BID Albuterol Sulfate Neb Soln (Albuterol Sulfate) 2.5 Mg/3 Ml Vial.neb 2.5 Mg NEB Pred Forte (Prednisolone Acetate) 1 Ml Drops.susp 1 Ml OP Proair Hfa Inhaler (Albuterol Sulfate) 8.5 Gm Hfa.aer.ad 1 Puff INH PRN Q6HRS PRN Losartan Potassium 50 Mg Tablet 1 Tab PO DAILY Hydroxychloroquine Sulfate 200 Mg Tablet 200 Mg PO DAILY Levothyroxine Sodium 50 Mcg Tablet 1 Tab PO DAILY Meloxicam 7.5 Mg Tablet 1 Tab PO DAILY Allergies Allergies: Coded Allergies: No Known Drug Allergies (Unverified , 10/26/14) ROS Review of System Per HPI, rest 12 point ROS is negative Physical Exam Physical Exam GEN: NAD HEEN: OM moist NECK supple CVS: S1S2, RESP: CTA, No Acc. Muscle Use GI: Non Tender, Non Distended : No CVA tenderness, No Suprapubic Tenderness, No Lamb NEURO0 Grossly normal SKIN No Rash EXT No LE edema Vital Signs Vital Signs Date Time Temp Pulse Resp B/P (MAP) Pulse Ox O2 Delivery O2 Flow Rate FiO2 11/30/19 11:00 98.0 81 18 135/61 (85) 98 Room Air 98.0 Assessment & Plan BRITTANI - ATN , Improving Baseline in 2014 was normal no interval labs Supportive care, Avoid nephrotoxins ,FU with PCP post dc ? CKD - Pt not aware, Renal cortices are echogenic on US Micr hematuria at presentation , ? Not sure if Lamb sample, No e/o UTI Repeat UA, if persistent Micr hematuria- Consult urology SBO -Improving , per Surg and GI Hx of NSAID- Meloxicam listed in home meds Recommend avoid NSAID's Small sliding hiatal hernia with gastroesophageal reflux. Diverticulosis of the colon. HTN Coronary artery calcification Bibasilar pulmonary fibrotic changes on chest x-ray Dw RN Labs Labs Laboratory Tests Test 11/29/19 17:42 11/30/19 02:14 11/30/19 02:47 Sodium Level 143 mmol/L (136-145) 141 mmol/L (136-145) Potassium Level 4.2 mmol/L (3.5-5.1) 4.2 mmol/L (3.5-5.1) Chloride Level 112 mmol/L (98-107) 110 mmol/L (98-107) Carbon Dioxide Level 23 mmol/L (21-32) 17 mmol/L (21-32) Anion Gap 8 (6-14) 14 (6-14) Blood Urea Nitrogen 34 mg/dL (7-20) 32 mg/dL (7-20) Creatinine 1.9 mg/dL (0.6-1.0) 1.7 mg/dL (0.6-1.0) Estimated GFR (Cockcroft-Gault) 25.0 28.4 Glucose Level 84 mg/dL (70-99) 69 mg/dL (70-99) Calcium Level 8.1 mg/dL (8.5-10.1) 8.3 mg/dL (8.5-10.1) Phosphorus Level 2.2 mg/dL (2.6-4.7) Albumin 2.6 g/dL (3.4-5.0) 2.5 g/dL (3.4-5.0) Urine Collection Type Unknown Urine Color Yellow Urine Clarity Clear Urine pH 5.5 (<5.0-8.0) Urine Specific [place] 1.015 (1.000-1.030) Urine Protein 30 mg/dL (NEG-TRACE) Urine Glucose (UA) Negative mg/dL (NEG) Urine Ketones (Stick) Trace mg/dL (NEG) Urine Blood Large (NEG) Urine Nitrite Negative (NEG) Urine Bilirubin Negative (NEG) Urine Urobilinogen Dipstick 0.2 mg/dL (0.2 mg/dL) Urine Leukocyte Esterase Negative (NEG) Urine RBC 20-40 /HPF (0-2) Urine WBC 1-4 /HPF (0-4) Urine Squamous Epithelial Cells Occ /LPF Urine Amorphous Sediment Present /HPF Urine Bacteria 0 /HPF (0-FEW) Urine Mucus Slight /LPF White Blood Count 6.1 x10^3/uL (4.0-11.0) Red Blood Count 3.40 x10^6/uL (3.50-5.40) Hemoglobin 10.5 g/dL (12.0-15.5) Hematocrit 32.2 % (36.0-47.0) Mean Corpuscular Volume 95 fL (79-100) Mean Corpuscular Hemoglobin 31 pg (25-35) Mean Corpuscular Hemoglobin Concent 33 g/dL (31-37) Red Cell Distribution Width 15.0 % (11.5-14.5) Platelet Count 223 x10^3/uL (140-400) Neutrophils (%) (Auto) 57 % (31-73) Lymphocytes (%) (Auto) 33 % (24-48) Monocytes (%) (Auto) 7 % (0-9) Eosinophils (%) (Auto) 3 % (0-3) Basophils (%) (Auto) 1 % (0-3) Neutrophils # (Auto) 3.5 x10^3/uL (1.8-7.7) Lymphocytes # (Auto) 2.0 x10^3/uL (1.0-4.8) Monocytes # (Auto) 0.4 x10^3/uL (0.0-1.1) Eosinophils # (Auto) 0.2 x10^3/uL (0.0-0.7) Basophils # (Auto) 0.0 x10^3/uL (0.0-0.2) BUN/Creatinine Ratio 19 (6-20) Total Bilirubin 0.2 mg/dL (0.2-1.0) Aspartate Amino Transf (AST/SGOT) 30 U/L (15-37) Alanine Aminotransferase (ALT/SGPT) 10 U/L (14-59) Alkaline Phosphatase 69 U/L (46-116) Total Protein 6.0 g/dL (6.4-8.2) Albumin/Globulin Ratio 0.7 (1.0-1.7) Laboratory Tests Test 11/29/19 17:42 11/30/19 02:14 11/30/19 02:47 Sodium Level 143 mmol/L (136-145) 141 mmol/L (136-145) Potassium Level 4.2 mmol/L (3.5-5.1) 4.2 mmol/L (3.5-5.1) Chloride Level 112 mmol/L (98-107) 110 mmol/L (98-107) Carbon Dioxide Level 23 mmol/L (21-32) 17 mmol/L (21-32) Anion Gap 8 (6-14) 14 (6-14) Blood Urea Nitrogen 34 mg/dL (7-20) 32 mg/dL (7-20) Creatinine 1.9 mg/dL (0.6-1.0) 1.7 mg/dL (0.6-1.0) Estimated GFR (Cockcroft-Gault) 25.0 28.4 Glucose Level 84 mg/dL (70-99) 69 mg/dL (70-99) Calcium Level 8.1 mg/dL (8.5-10.1) 8.3 mg/dL (8.5-10.1) Phosphorus Level 2.2 mg/dL (2.6-4.7) Albumin 2.6 g/dL (3.4-5.0) 2.5 g/dL (3.4-5.0) Urine Collection Type Unknown Urine Color Yellow Urine Clarity Clear Urine pH 5.5 (<5.0-8.0) Urine Specific [place] 1.015 (1.000-1.030) Urine Protein 30 mg/dL (NEG-TRACE) Urine Glucose (UA) Negative mg/dL (NEG) Urine Ketones (Stick) Trace mg/dL (NEG) Urine Blood Large (NEG) Urine Nitrite Negative (NEG) Urine Bilirubin Negative (NEG) Urine Urobilinogen Dipstick 0.2 mg/dL (0.2 mg/dL) Urine Leukocyte Esterase Negative (NEG) Urine RBC 20-40 /HPF (0-2) Urine WBC 1-4 /HPF (0-4) Urine Squamous Epithelial Cells Occ /LPF Urine Amorphous Sediment Present /HPF Urine Bacteria 0 /HPF (0-FEW) Urine Mucus Slight /LPF White Blood Count 6.1 x10^3/uL (4.0-11.0) Red Blood Count 3.40 x10^6/uL (3.50-5.40) Hemoglobin 10.5 g/dL (12.0-15.5) Hematocrit 32.2 % (36.0-47.0) Mean Corpuscular Volume 95 fL (79-100) Mean Corpuscular Hemoglobin 31 pg (25-35) Mean Corpuscular Hemoglobin Concent 33 g/dL (31-37) Red Cell Distribution Width 15.0 % (11.5-14.5) Platelet Count 223 x10^3/uL (140-400) Neutrophils (%) (Auto) 57 % (31-73) Lymphocytes (%) (Auto) 33 % (24-48) Monocytes (%) (Auto) 7 % (0-9) Eosinophils (%) (Auto) 3 % (0-3) Basophils (%) (Auto) 1 % (0-3) Neutrophils # (Auto) 3.5 x10^3/uL (1.8-7.7) Lymphocytes # (Auto) 2.0 x10^3/uL (1.0-4.8) Monocytes # (Auto) 0.4 x10^3/uL (0.0-1.1) Eosinophils # (Auto) 0.2 x10^3/uL (0.0-0.7) Basophils # (Auto) 0.0 x10^3/uL (0.0-0.2) BUN/Creatinine Ratio 19 (6-20) Total Bilirubin 0.2 mg/dL (0.2-1.0) Aspartate Amino Transf (AST/SGOT) 30 U/L (15-37) Alanine Aminotransferase (ALT/SGPT) 10 U/L (14-59) Alkaline Phosphatase 69 U/L (46-116) Total Protein 6.0 g/dL (6.4-8.2) Albumin/Globulin Ratio 0.7 (1.0-1.7) Review All relevant outside records, renal labs, imaging studies, telemetry/EKG's were reviewed. Images Images Renal US Right Kidney: 96 mm. No hydronephrosis. Left Kidney: 101 mm. No hydronephrosis. Bladder: Largely decompressed Ascites is visualized. The renal cortex is echogenic. IMPRESSION: * No hydronephrosis. * Free fluid is identified, small amount. * Renal cortices are echogenic. Correlate for possible causes such as medical renal disease. EDITH MUELLER MD Nov 30, 2019 11:22
[2019-11-30 12:17] LABS: BILIRUBIN,URINE NEGATIVE (NEG); CLARITY,URINE CLEAR; COLOR,URINE YELLOW; NITRITE,URINE NEGATIVE (NEG); PH,URINE 5.5 (<5.0-8.0); PROTEIN,URINE 30 mg/dL (NEG-TRACE); UROBILINOGEN,URINE 0.2 mg/dL (0.2 mg/dL)
[2019-11-30 12:41] LABS: BACTERIA,URINE FEW /HPF (0-FEW); RBC,URINE >40 /HPF (0-2); SQUAMOUS EPITHELIAL CELL,UR OCC /LPF
[2019-11-30 15:18] VITALS: BP 127/62
[2019-11-30 19:30] VITALS: BP 133/60
[2019-11-30] MEDS: PATCH REMOVAL. MC SCH (21:25)
[2019-11-30 22:42] VITALS: BP 121/59
[2019-12-01] MEDS: IV 1/2 NORMAL SALINE 1,000 ML IV SCH ×2 (02:19→22:00)
[2019-12-01 03:00] VITALS: BP 111/50
[2019-12-01 05:40] LABS: CALCIUM 7.5 mg/dL (8.5-10.1); CREATININE 1.6 mg/dL (0.6-1.0); GFR 30.5
[2019-12-01] MEDS: METOCLOPRAMIDE HCL 10 MG/2 ML VIAL. IVP SCH ×3 (05:50→18:00)
[2019-12-01] MEDS: HEPARIN for SUB-Q USE 5,000 UNIT/ML VIAL. SQ SCH ×3 (05:55→22:06)
--- NOTE | 2019-12-01 06:34 | PDOC ---
PROGRESS NOTES Chief Complaint Chief Complaint impression SBO - cont adat, pain control IV, f/u surgery recs Distended small bowel loops are present with transition within the lower pelvic region. Very distal small bowel is decompressed. Prolonged transit of contrast through the stomach and small bowel. Possibility of low-grade, partial, or intermittent obstruction at the lower pelvic, right distal small bowel region is is raised BRITTANI - vasomotor nephropathy Severe protein calorie malnutrition Small sliding hiatal hernia with gastroesophageal reflux. Diverticulosis of the colon. Hypothyroidism - IV to po HTN GERD Coronary artery calcification Bibasilar pulmonary fibrotic changes on chest x-ray PLAN FEN - liquid diet PPX - Lovenox FULL CODE Dispo - inpatient small bowel series 11/26 continue diet trial and observe. gi consult noted 11/30 starting to eat soft foods D/W RN History of Present Illness History of Present Illness Sr Al is an 88 yo Sister of Idania and lives with her community in [place] w/ PMHx GERD, Hypothyroidism, HTN. She awoke in the middle of the night 11/24/2019 with severe mid abdominal pain and projectile vomiting. She presented to the [facility] Emergency Department for evaluation and was found to have small bowel obstruction and transferred to [facility]. Creatinine noted 2.7, which had improved overnight to 2.3 with intravenous hydration. The patient denied any history of renal failure. CR improved to 2.2. No vomiting overnight still with pain states she passed gas. Now has some left-sided back pain was not able to sleep well. Afebrile no shortness of breath or cough. KUB with SBO. CXR with worsening basilar fibrotic changes. Vitals Vitals Vital Signs Date Time Temp Pulse Resp B/P (MAP) Pulse Ox O2 Delivery O2 Flow Rate FiO2 12/01/19 03:00 99.0 80 18 111/50 (70) 96 Room Air 99.0 Physical Exam General: Alert, Oriented X3, Cooperative, No acute distress Heart: Regular rate, Normal S1, Normal S2 Lungs: Clear Abdomen: Normal bowel sounds, Soft, Other (ND, mild ttp upper abdomen ) Extremities: No clubbing, No cyanosis Skin: No rashes, No breakdown Labs LABS Laboratory Tests Test 11/30/19 12:12 12/01/19 03:58 Urine Collection Type Unknown Urine Color Yellow Urine Clarity Clear Urine pH 5.5 (<5.0-8.0) Urine Specific [place] 1.015 (1.000-1.030) Urine Protein 30 mg/dL (NEG-TRACE) Urine Glucose (UA) Negative mg/dL (NEG) Urine Ketones (Stick) Trace mg/dL (NEG) Urine Blood Large (NEG) Urine Nitrite Negative (NEG) Urine Bilirubin Negative (NEG) Urine Urobilinogen Dipstick 0.2 mg/dL (0.2 mg/dL) Urine Leukocyte Esterase Negative (NEG) Urine RBC >40 /HPF (0-2) Urine WBC 1-4 /HPF (0-4) Urine Squamous Epithelial Cells Occ /LPF Urine Bacteria Few /HPF (0-FEW) Sodium Level 138 mmol/L (136-145) Potassium Level 4.0 mmol/L (3.5-5.1) Chloride Level 107 mmol/L (98-107) Carbon Dioxide Level 20 mmol/L (21-32) Anion Gap 11 (6-14) Blood Urea Nitrogen 28 mg/dL (7-20) Creatinine 1.6 mg/dL (0.6-1.0) Estimated GFR (Cockcroft-Gault) 30.5 Glucose Level 82 mg/dL (70-99) Calcium Level 7.5 mg/dL (8.5-10.1) Comment Review of Relevant I have reviewed the following items mercedes (where applicable) has been applied. Labs Laboratory Tests Test 11/29/19 17:42 11/30/19 02:14 11/30/19 02:47 11/30/19 12:12 Sodium Level 143 mmol/L (136-145) 141 mmol/L (136-145) Potassium Level 4.2 mmol/L (3.5-5.1) 4.2 mmol/L (3.5-5.1) Chloride Level 112 mmol/L (98-107) 110 mmol/L (98-107) Carbon Dioxide Level 23 mmol/L (21-32) 17 mmol/L (21-32) Anion Gap 8 (6-14) 14 (6-14) Blood Urea Nitrogen 34 mg/dL (7-20) 32 mg/dL (7-20) Creatinine 1.9 mg/dL (0.6-1.0) 1.7 mg/dL (0.6-1.0) Estimated GFR (Cockcroft-Gault) 25.0 28.4 Glucose Level 84 mg/dL (70-99) 69 mg/dL (70-99) Calcium Level 8.1 mg/dL (8.5-10.1) 8.3 mg/dL (8.5-10.1) Phosphorus Level 2.2 mg/dL (2.6-4.7) Albumin 2.6 g/dL (3.4-5.0) 2.5 g/dL (3.4-5.0) Urine Collection Type Unknown Unknown Urine Color Yellow Yellow Urine Clarity Clear Clear Urine pH 5.5 (<5.0-8.0) 5.5 (<5.0-8.0) Urine Specific [place] 1.015 (1.000-1.030) 1.015 (1.000-1.030) Urine Protein 30 mg/dL (NEG-TRACE) 30 mg/dL (NEG-TRACE) Urine Glucose (UA) Negative mg/dL (NEG) Negative mg/dL (NEG) Urine Ketones (Stick) Trace mg/dL (NEG) Trace mg/dL (NEG) Urine Blood Large (NEG) Large (NEG) Urine Nitrite Negative (NEG) Negative (NEG) Urine Bilirubin Negative (NEG) Negative (NEG) Urine Urobilinogen Dipstick 0.2 mg/dL (0.2 mg/dL) 0.2 mg/dL (0.2 mg/dL) Urine Leukocyte Esterase Negative (NEG) Negative (NEG) Urine RBC 20-40 /HPF (0-2) >40 /HPF (0-2) Urine WBC 1-4 /HPF (0-4) 1-4 /HPF (0-4) Urine Squamous Epithelial Cells Occ /LPF Occ /LPF Urine Amorphous Sediment Present /HPF Urine Bacteria 0 /HPF (0-FEW) Few /HPF (0-FEW) Urine Mucus Slight /LPF White Blood Count 6.1 x10^3/uL (4.0-11.0) Red Blood Count 3.40 x10^6/uL (3.50-5.40) Hemoglobin 10.5 g/dL (12.0-15.5) Hematocrit 32.2 % (36.0-47.0) Mean Corpuscular Volume 95 fL (79-100) Mean Corpuscular Hemoglobin 31 pg (25-35) Mean Corpuscular Hemoglobin Concent 33 g/dL (31-37) Red Cell Distribution Width 15.0 % (11.5-14.5) Platelet Count 223 x10^3/uL (140-400) Neutrophils (%) (Auto) 57 % (31-73) Lymphocytes (%) (Auto) 33 % (24-48) Monocytes (%) (Auto) 7 % (0-9) Eosinophils (%) (Auto) 3 % (0-3) Basophils (%) (Auto) 1 % (0-3) Neutrophils # (Auto) 3.5 x10^3/uL (1.8-7.7) Lymphocytes # (Auto) 2.0 x10^3/uL (1.0-4.8) Monocytes # (Auto) 0.4 x10^3/uL (0.0-1.1) Eosinophils # (Auto) 0.2 x10^3/uL (0.0-0.7) Basophils # (Auto) 0.0 x10^3/uL (0.0-0.2) BUN/Creatinine Ratio 19 (6-20) Total Bilirubin 0.2 mg/dL (0.2-1.0) Aspartate Amino Transf (AST/SGOT) 30 U/L (15-37) Alanine Aminotransferase (ALT/SGPT) 10 U/L (14-59) Alkaline Phosphatase 69 U/L (46-116) Total Protein 6.0 g/dL (6.4-8.2) Albumin/Globulin Ratio 0.7 (1.0-1.7) Test 12/01/19 03:58 Sodium Level 138 mmol/L (136-145) Potassium Level 4.0 mmol/L (3.5-5.1) Chloride Level 107 mmol/L (98-107) Carbon Dioxide Level 20 mmol/L (21-32) Anion Gap 11 (6-14) Blood Urea Nitrogen 28 mg/dL (7-20) Creatinine 1.6 mg/dL (0.6-1.0) Estimated GFR (Cockcroft-Gault) 30.5 Glucose Level 82 mg/dL (70-99) Calcium Level 7.5 mg/dL (8.5-10.1) Laboratory Tests Test 11/30/19 12:12 12/01/19 03:58 Urine Collection Type Unknown Urine Color Yellow Urine Clarity Clear Urine pH 5.5 (<5.0-8.0) Urine Specific [place] 1.015 (1.000-1.030) Urine Protein 30 mg/dL (NEG-TRACE) Urine Glucose (UA) Negative mg/dL (NEG) Urine Ketones (Stick) Trace mg/dL (NEG) Urine Blood Large (NEG) Urine Nitrite Negative (NEG) Urine Bilirubin Negative (NEG) Urine Urobilinogen Dipstick 0.2 mg/dL (0.2 mg/dL) Urine Leukocyte Esterase Negative (NEG) Urine RBC >40 /HPF (0-2) Urine WBC 1-4 /HPF (0-4) Urine Squamous Epithelial Cells Occ /LPF Urine Bacteria Few /HPF (0-FEW) Sodium Level 138 mmol/L (136-145) Potassium Level 4.0 mmol/L (3.5-5.1) Chloride Level 107 mmol/L (98-107) Carbon Dioxide Level 20 mmol/L (21-32) Anion Gap 11 (6-14) Blood Urea Nitrogen 28 mg/dL (7-20) Creatinine 1.6 mg/dL (0.6-1.0) Estimated GFR (Cockcroft-Gault) 30.5 Glucose Level 82 mg/dL (70-99) Calcium Level 7.5 mg/dL (8.5-10.1) Medications Current Medications Ringer's Solution 1,000 ml @ 100 mls/hr Q10H IV Last administered on 11/24/19at 23:17; Start 11/24/19 at 22:43; Stop 11/25/19 at 19:26; Status DC Ondansetron HCl (Zofran) 4 mg PRN Q4HRS PRN IVP NAUSEA/VOMITING Last administered on 11/29/19at 03:36; Start 11/24/19 at 22:45 Morphine Sulfate (Morphine Sulfate) 2 mg PRN Q3HRS PRN IV PAIN Last administered on 11/27/19at 07:13; Start 11/24/19 at 22:45 Benzocaine (Hurricaine One) 1 spray 1X ONCE MM Last administered on 11/24/19at 23:17; Start 11/24/19 at 23:00; Stop 11/24/19 at 23:02; Status DC Hydralazine HCl (Apresoline Inj) 5 mg PRN Q6HRS PRN IVP ELEVATED BP, SEE COMMENTS; Start 11/25/19 at 00:45 Sodium Chloride 1,000 ml @ 125 mls/hr 1X ONCE IV Last administered on 11/25/19at 10:03; Start 11/25/19 at 09:30; Stop 11/25/19 at 17:29; Status DC Sodium Chloride 1,000 ml @ 100 mls/hr Q10H IV Last administered on 11/27/19at 21:19; Start 11/25/19 at 19:30; Stop 11/28/19 at 13:43; Status DC Lidocaine (Lidoderm) 1 patch DAILY TD Last administered on 11/30/19at 07:40; Start 11/26/19 at 09:45 Miscellaneous (Lidoderm Patch Removal) 1 ea QHS MC Last administered on 11/30/19at 21:25; Start 11/26/19 at 21:00 Heparin Sodium (Porcine) (Heparin Sodium) 5,000 unit Q8HRS SQ Last administered on 12/01/19at 05:55; Start 11/26/19 at 10:00 Albuterol Sulfate (Ventolin Neb Soln) 2.5 mg PRN Q6HRS PRN INH SHORTNESS OF BREATH; Start 11/26/19 at 09:45 Levothyroxine Sodium 50 mcg/ Sodium Chloride 5 ml @ 100 mls/hr Q3DAYS IV Last administered on 11/29/19at 08:46; Start 11/26/19 at 09:45 Iohexol (Omnipaque 300 Mg/ml) 400 ml 1X ONCE PO Last administered on 11/27/19at 07:00; Start 11/27/19 at 07:00; Stop 11/27/19 at 07:01; Status DC Info (CONTRAST GIVEN -- Rx MONITORING) 1 each PRN DAILY PRN MC SEE COMMENTS; Start 11/27/19 at 07:00; Stop 11/29/19 at 06:59; Status DC Metoclopramide HCl (Reglan Vial) 5 mg Q6HRS IVP Last administered on 12/01/19at 05:50; Start 11/28/19 at 00:00 Potassium Chloride/Dextrose/ Sod Cl 1,000 ml @ 100 mls/hr Q10H IV Last administered on 11/28/19at 00:00; Start 11/27/19 at 23:30; Stop 11/28/19 at 13:43; Status DC Fentanyl Citrate (Fentanyl 2ml Vial) 25 mcg PRN Q5MIN PRN IV MILD PAIN 1-3; Start 11/28/19 at 10:30; Stop 11/28/19 at 20:00; Status DC Fentanyl Citrate (Fentanyl 2ml Vial) 50 mcg PRN Q5MIN PRN IV MODERATE TO SEVERE PAIN; Start 11/28/19 at 10:30; Stop 11/28/19 at 20:00; Status DC Morphine Sulfate (Morphine Sulfate) 1 mg PRN Q10MIN PRN IV SEVERE PAIN 7-10; Start 11/28/19 at 10:30; Stop 11/28/19 at 20:00; Status DC Ringer's Solution 1,000 ml @ 30 mls/hr Q24H IV ; Start 11/28/19 at 10:29; Stop 11/28/19 at 22:28; Status DC Hydromorphone HCl (Dilaudid) 0.5 mg PRN Q10MIN PRN IV SEV PAIN, Second choice; Start 11/28/19 at 10:30; Stop 11/28/19 at 20:00; Status DC Sodium Chloride 1,000 ml @ 50 mls/hr Q20H IV Last administered on 12/01/19at 02:19; Start 11/28/19 at 14:00 Pantoprazole Sodium (Protonix) 40 mg DAILYAC PO Last administered on 11/30/19at 07:39; Start 11/30/19 at 07:30 Active Scripts Active Reported Omeprazole 20 Mg Tablet.dr 1 Tab PO DAILY Levothyroxine Sodium 50 Mcg Tablet 50 Mcg PO DAILYAC Benefiber (Wheat Dextrin) 1 Each Powd.pack 1 Each PO BID Albuterol Sulfate Neb Soln (Albuterol Sulfate) 2.5 Mg/3 Ml Vial.neb 2.5 Mg NEB Pred Forte (Prednisolone Acetate) 1 Ml Drops.susp 1 Ml OP Proair Hfa Inhaler (Albuterol Sulfate) 8.5 Gm Hfa.aer.ad 1 Puff INH PRN Q6HRS PRN Losartan Potassium 50 Mg Tablet 1 Tab PO DAILY Hydroxychloroquine Sulfate 200 Mg Tablet 200 Mg PO DAILY Levothyroxine Sodium 50 Mcg Tablet 1 Tab PO DAILY Meloxicam 7.5 Mg Tablet 1 Tab PO DAILY Vitals/I & O Vital Sign - Last 24 Hours 11/30/19 11/30/19 11/30/19 11/30/19 07:00 08:00 11:00 15:18 Temp 97.5 98.0 98.0 97.5 98.0 98.0 Pulse 74 81 74 Resp 18 18 18 B/P (MAP) 136/65 (88) 135/61 (85) 127/62 (83) Pulse Ox 98 98 98 O2 Delivery Room Air Room Air Room Air Room Air 11/30/19 11/30/19 11/30/19 12/01/19 19:30 19:45 22:42 03:00 Temp 97.8 98.3 99.0 97.8 98.3 99.0 Pulse 79 79 80 Resp 18 16 18 B/P (MAP) 133/60 (84) 121/59 (79) 111/50 (70) Pulse Ox 96 95 96 O2 Delivery Room Air Room Air Room Air Room Air Intake and Output 11/30/19 11/30/19 12/01/19 15:00 23:00 07:00 Intake Total 350 ml 150 ml 30 ml Balance 350 ml 150 ml 30 ml Nutrition Consultation Dietary Evaluation: Recommendations by RD: Dietary education by RD, Increase Calorie Intake, Protein supplementation Comments: ensure tid Expected Outcomes/Goals: to meet >75% est nutr needs Malnutrition Findings: Body Fat Depletion (Non Severe: Mild Depletion Weight Status: Underweight Justicifation of Admission Dx: Justifications for Admission: Justification of Admission Dx: Yes FRANKLYN VALENCIA MD Dec 01, 2019 06:34
[2019-12-01 07:32] VITALS: BP 135/42
[2019-12-01] MEDS: PANTOPRAZOLE 40 MG TABLET.DR. PO SCH (08:36)
[2019-12-01] MEDS: LIDOCAINE (700MG/PATCH) PATCH. TD SCH (08:36)
--- NOTE | 2019-12-01 09:08 | PDOC ---
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: SURGICAL PROGRESS NOTE Subjective doing better having stools no abdominal pain Vital Signs Vital Signs Date Time Temp Pulse Resp B/P (MAP) Pulse Ox O2 Delivery O2 Flow Rate FiO2 12/01/19 07:54 Room Air 12/01/19 07:32 98.9 75 18 135/42 (73) 96 98.9 I&O Intake and Output 12/01/19 07:00 Intake Total 530 ml Balance 530 ml Intake Oral 530 ml # Voids 10 General: Alert, Oriented X3, Cooperative Abdomen: Soft, No tenderness Labs Laboratory Tests Test 11/29/19 17:42 11/30/19 02:14 11/30/19 02:47 11/30/19 12:12 Sodium Level 143 mmol/L (136-145) 141 mmol/L (136-145) Potassium Level 4.2 mmol/L (3.5-5.1) 4.2 mmol/L (3.5-5.1) Chloride Level 112 mmol/L (98-107) 110 mmol/L (98-107) Carbon Dioxide Level 23 mmol/L (21-32) 17 mmol/L (21-32) Anion Gap 8 (6-14) 14 (6-14) Blood Urea Nitrogen 34 mg/dL (7-20) 32 mg/dL (7-20) Creatinine 1.9 mg/dL (0.6-1.0) 1.7 mg/dL (0.6-1.0) Estimated GFR (Cockcroft-Gault) 25.0 28.4 Glucose Level 84 mg/dL (70-99) 69 mg/dL (70-99) Calcium Level 8.1 mg/dL (8.5-10.1) 8.3 mg/dL (8.5-10.1) Phosphorus Level 2.2 mg/dL (2.6-4.7) Albumin 2.6 g/dL (3.4-5.0) 2.5 g/dL (3.4-5.0) Urine Collection Type Unknown Unknown Urine Color Yellow Yellow Urine Clarity Clear Clear Urine pH 5.5 (<5.0-8.0) 5.5 (<5.0-8.0) Urine Specific [place] 1.015 (1.000-1.030) 1.015 (1.000-1.030) Urine Protein 30 mg/dL (NEG-TRACE) 30 mg/dL (NEG-TRACE) Urine Glucose (UA) Negative mg/dL (NEG) Negative mg/dL (NEG) Urine Ketones (Stick) Trace mg/dL (NEG) Trace mg/dL (NEG) Urine Blood Large (NEG) Large (NEG) Urine Nitrite Negative (NEG) Negative (NEG) Urine Bilirubin Negative (NEG) Negative (NEG) Urine Urobilinogen Dipstick 0.2 mg/dL (0.2 mg/dL) 0.2 mg/dL (0.2 mg/dL) Urine Leukocyte Esterase Negative (NEG) Negative (NEG) Urine RBC 20-40 /HPF (0-2) >40 /HPF (0-2) Urine WBC 1-4 /HPF (0-4) 1-4 /HPF (0-4) Urine Squamous Epithelial Cells Occ /LPF Occ /LPF Urine Amorphous Sediment Present /HPF Urine Bacteria 0 /HPF (0-FEW) Few /HPF (0-FEW) Urine Mucus Slight /LPF White Blood Count 6.1 x10^3/uL (4.0-11.0) Red Blood Count 3.40 x10^6/uL (3.50-5.40) Hemoglobin 10.5 g/dL (12.0-15.5) Hematocrit 32.2 % (36.0-47.0) Mean Corpuscular Volume 95 fL (79-100) Mean Corpuscular Hemoglobin 31 pg (25-35) Mean Corpuscular Hemoglobin Concent 33 g/dL (31-37) Red Cell Distribution Width 15.0 % (11.5-14.5) Platelet Count 223 x10^3/uL (140-400) Neutrophils (%) (Auto) 57 % (31-73) Lymphocytes (%) (Auto) 33 % (24-48) Monocytes (%) (Auto) 7 % (0-9) Eosinophils (%) (Auto) 3 % (0-3) Basophils (%) (Auto) 1 % (0-3) Neutrophils # (Auto) 3.5 x10^3/uL (1.8-7.7) Lymphocytes # (Auto) 2.0 x10^3/uL (1.0-4.8) Monocytes # (Auto) 0.4 x10^3/uL (0.0-1.1) Eosinophils # (Auto) 0.2 x10^3/uL (0.0-0.7) Basophils # (Auto) 0.0 x10^3/uL (0.0-0.2) BUN/Creatinine Ratio 19 (6-20) Total Bilirubin 0.2 mg/dL (0.2-1.0) Aspartate Amino Transf (AST/SGOT) 30 U/L (15-37) Alanine Aminotransferase (ALT/SGPT) 10 U/L (14-59) Alkaline Phosphatase 69 U/L (46-116) Total Protein 6.0 g/dL (6.4-8.2) Albumin/Globulin Ratio 0.7 (1.0-1.7) Test 12/01/19 03:58 Sodium Level 138 mmol/L (136-145) Potassium Level 4.0 mmol/L (3.5-5.1) Chloride Level 107 mmol/L (98-107) Carbon Dioxide Level 20 mmol/L (21-32) Anion Gap 11 (6-14) Blood Urea Nitrogen 28 mg/dL (7-20) Creatinine 1.6 mg/dL (0.6-1.0) Estimated GFR (Cockcroft-Gault) 30.5 Glucose Level 82 mg/dL (70-99) Calcium Level 7.5 mg/dL (8.5-10.1) Laboratory Tests Test 11/30/19 12:12 12/01/19 03:58 Urine Collection Type Unknown Urine Color Yellow Urine Clarity Clear Urine pH 5.5 (<5.0-8.0) Urine Specific [place] 1.015 (1.000-1.030) Urine Protein 30 mg/dL (NEG-TRACE) Urine Glucose (UA) Negative mg/dL (NEG) Urine Ketones (Stick) Trace mg/dL (NEG) Urine Blood Large (NEG) Urine Nitrite Negative (NEG) Urine Bilirubin Negative (NEG) Urine Urobilinogen Dipstick 0.2 mg/dL (0.2 mg/dL) Urine Leukocyte Esterase Negative (NEG) Urine RBC >40 /HPF (0-2) Urine WBC 1-4 /HPF (0-4) Urine Squamous Epithelial Cells Occ /LPF Urine Bacteria Few /HPF (0-FEW) Sodium Level 138 mmol/L (136-145) Potassium Level 4.0 mmol/L (3.5-5.1) Chloride Level 107 mmol/L (98-107) Carbon Dioxide Level 20 mmol/L (21-32) Anion Gap 11 (6-14) Blood Urea Nitrogen 28 mg/dL (7-20) Creatinine 1.6 mg/dL (0.6-1.0) Estimated GFR (Cockcroft-Gault) 30.5 Glucose Level 82 mg/dL (70-99) Calcium Level 7.5 mg/dL (8.5-10.1) Assessment/Plan advance diet ok to dc home Justicifation of Admission Dx: Justifications for Admission: Justification of Admission Dx: Yes ANDREW LINTON MD 12/01/192114: SURGICAL PROGRESS NOTE Assessment/Plan Pt seen and examined. Agree with Ms. Beck's note Pt feels better, eliazar diet passing stools abd soft, ND, NTTP OK to d/c home. BILL BECK APRN Dec 01, 2019 09:08 ANDREW LINTON MD Dec 01, 2019 21:15
[2019-12-01 11:02] VITALS: BP 126/53
--- NOTE | 2019-12-01 11:18 | PDOC ---
SUBJECTIVE ROS Stable OBJECTIVE Vital Signs Vital Signs Date Time Temp Pulse Resp B/P (MAP) Pulse Ox O2 Delivery O2 Flow Rate FiO2 12/01/19 11:02 99.0 71 18 126/53 (77) 96 Room Air 99.0 I & 0 Intake and Output 12/01/19 07:00 Intake Total 530 ml Balance 530 ml Intake Oral 530 ml # Voids 10 PHYSICAL EXAM Physical Exam GEN: NAD HEEN: OM moist NECK supple CVS: S1S2, RESP: CTA, No Acc. Muscle Use GI: Non Tender, Non Distended : No CVA tenderness, No Suprapubic Tenderness, No Lamb NEURO0 Grossly normal SKIN No Rash EXT No LE edema DIAGNOSIS/ASSESSMENT Assessment & Plan BRITTANI - ATN , Improving Baseline in 2014 was normal no interval labs Supportive care, Avoid nephrotoxins ,FU with PCP post dc ? CKD - Pt not aware, Renal cortices echogenic on US Micr hematuria at presentation , ? Not sure if Lamb sample, No e/o UTI Repeat UA, if persistent Micr hematuria- Consult urology SBO -Improving , per Surg and GI Hx of NSAID- Meloxicam listed in home meds Recommend avoid NSAID's COMMENT/RELEVANT DATA Meds Current Medications Medications (Trade) Dose Ordered Sig/Evelia Start Time Stop Time Status Last Admin Dose Admin Albuterol Sulfate (Ventolin Neb Soln) 2.5 mg PRN Q6HRS PRN 11/26/19 09:45 Benzocaine (Hurricaine One) 1 spray 1X ONCE 11/24/19 23:00 11/24/19 23:02 DC 11/24/19 23:17 1 SPRAY Fentanyl Citrate (Fentanyl 2ml Vial) 50 mcg PRN Q5MIN PRN 11/28/19 10:30 11/28/19 20:00 DC Heparin Sodium (Porcine) (Heparin Sodium) 5,000 unit Q8HRS 11/26/19 10:00 12/01/19 05:55 5,000 UNIT Hydralazine HCl (Apresoline Inj) 5 mg PRN Q6HRS PRN 11/25/19 00:45 Hydromorphone HCl (Dilaudid) 0.5 mg PRN Q10MIN PRN 11/28/19 10:30 11/28/19 20:00 DC Info (CONTRAST GIVEN -- Rx MONITORING) 1 each PRN DAILY PRN 11/27/19 07:00 11/29/19 06:59 DC Iohexol (Omnipaque 300 Mg/ml) 400 ml 1X ONCE 11/27/19 07:00 11/27/19 07:01 DC 11/27/19 07:00 400 ML Levothyroxine Sodium 50 mcg/ Sodium Chloride 5 ml @ 100 mls/hr Q3DAYS 11/26/19 09:45 11/29/19 08:46 100 MLS/HR Lidocaine (Lidoderm) 1 patch DAILY 11/26/19 09:45 12/01/19 08:36 1 PATCH Metoclopramide HCl (Reglan Vial) 5 mg Q6HRS 11/28/19 00:00 12/01/19 05:50 5 MG Miscellaneous (Lidoderm Patch Removal) 1 ea QHS 11/26/19 21:00 11/30/19 21:25 1 EA Morphine Sulfate (Morphine Sulfate) 1 mg PRN Q10MIN PRN 11/28/19 10:30 11/28/19 20:00 DC Ondansetron HCl (Zofran) 4 mg PRN Q4HRS PRN 11/24/19 22:45 11/29/19 03:36 4 MG Pantoprazole Sodium (Protonix) 40 mg DAILYAC 11/30/19 07:30 12/01/19 08:36 40 MG Potassium Chloride/Dextrose/ Sod Cl 1,000 ml @ 100 mls/hr Q10H 11/27/19 23:30 11/28/19 13:43 DC 11/28/19 00:00 100 MLS/HR Ringer's Solution 1,000 ml @ 30 mls/hr Q24H 11/28/19 10:29 11/28/19 22:28 DC Sodium Chloride 1,000 ml @ 50 mls/hr Q20H 11/28/19 14:00 12/01/19 02:19 50 MLS/HR Lab Laboratory Tests Test 11/30/19 12:12 12/01/19 03:58 Urine Collection Type Unknown Urine Color Yellow Urine Clarity Clear Urine pH 5.5 (<5.0-8.0) Urine Specific [place] 1.015 (1.000-1.030) Urine Protein 30 mg/dL (NEG-TRACE) Urine Glucose (UA) Negative mg/dL (NEG) Urine Ketones (Stick) Trace mg/dL (NEG) Urine Blood Large (NEG) Urine Nitrite Negative (NEG) Urine Bilirubin Negative (NEG) Urine Urobilinogen Dipstick 0.2 mg/dL (0.2 mg/dL) Urine Leukocyte Esterase Negative (NEG) Urine RBC >40 /HPF (0-2) Urine WBC 1-4 /HPF (0-4) Urine Squamous Epithelial Cells Occ /LPF Urine Bacteria Few /HPF (0-FEW) Sodium Level 138 mmol/L (136-145) Potassium Level 4.0 mmol/L (3.5-5.1) Chloride Level 107 mmol/L (98-107) Carbon Dioxide Level 20 mmol/L (21-32) Anion Gap 11 (6-14) Blood Urea Nitrogen 28 mg/dL (7-20) Creatinine 1.6 mg/dL (0.6-1.0) Estimated GFR (Cockcroft-Gault) 30.5 Glucose Level 82 mg/dL (70-99) Calcium Level 7.5 mg/dL (8.5-10.1) Results All relevant outside records, renal labs, imaging studies, telemetry/EKG's were reviewed. Justicifation of Admission Dx: Justifications for Admission: Justification of Admission Dx: Yes EDITH MUELLER MD Dec 01, 2019 11:18
--- NOTE | 2019-12-01 11:35 | NUR ---
SW following. Discussed with RN, pt on GI soft - okay to discharge home per surgery. SW will continue to follow.
--- NOTE | 2019-12-01 13:02 | PDOC ---
Subjective: Subjective: Ate lunch but not much because felt full - "was too much." Tells me "mucho" pain - told nurse none. Tells me she feels better. No n/v. Stooled this morning. Objective: Vital Signs: Vital Signs Date Time Temp Pulse Resp B/P (MAP) Pulse Ox O2 Delivery O2 Flow Rate FiO2 12/01/19 11:02 99.0 71 18 126/53 (77) 96 Room Air 99.0 Labs: Laboratory Tests Test 12/01/19 03:58 Sodium Level 138 mmol/L Potassium Level 4.0 mmol/L Chloride Level 107 mmol/L Carbon Dioxide Level 20 mmol/L Anion Gap 11 Blood Urea Nitrogen 28 mg/dL Creatinine 1.6 mg/dL Estimated GFR (Cockcroft-Gault) 30.5 Glucose Level 82 mg/dL Calcium Level 7.5 mg/dL PE: GEN: NAD - up in chair - looks better today LUNGS: CTAB HEART: RRR ABD: less tender, BS more active NEURO/PSYCH: A & O 3 A/P: SBO - resolving -- Seems better today. Continue per surgery. Justicifation of Admission Dx: Justifications for Admission: Justification of Admission Dx: Yes MAYUR JORDAN Dec 01, 2019 13:02
[2019-12-01 15:10] VITALS: BP 128/52
[2019-12-01 19:00] VITALS: BP 137/79
[2019-12-01] MEDS: PATCH REMOVAL. MC SCH (21:00)
[2019-12-01 23:00] VITALS: BP 111/48
[2019-12-02] MEDS: METOCLOPRAMIDE HCL 10 MG/2 ML VIAL. IVP SCH ×4 (00:58→17:32)
[2019-12-02 03:00] VITALS: BP 93/50
[2019-12-02] MEDS: HEPARIN for SUB-Q USE 5,000 UNIT/ML VIAL. SQ SCH ×3 (06:42→22:08)
[2019-12-02 07:00] VITALS: BP 113/53
[2019-12-02] MEDS: PANTOPRAZOLE 40 MG TABLET.DR. PO SCH (08:10)
[2019-12-02] MEDS: LIDOCAINE (700MG/PATCH) PATCH. TD SCH (08:10)
[2019-12-02 08:17] LABS: BASO % 0 % (0-3); EOS # 0.1 x10^3/uL (0.0-0.7); EOS % 2 % (0-3); HEMATOCRIT 32.1 % (36.0-47.0); HEMOGLOBIN 10.6 g/dL (12.0-15.5); LYMPH # 1.8 x10^3/uL (1.0-4.8); LYMPH % 32 % (24-48); MEAN CORPUSCULAR HEMOGLOBIN 31 pg (25-35); MEAN CORPUSCULAR HGB CONC 33 g/dL (31-37); MEAN CORPUSCULAR VOLUME 93 fL (79-100); MONO # 0.3 x10^3/uL (0.0-1.1); MONO % 6 % (0-9); NEUT # 3.4 x10^3/uL (1.8-7.7); NEUT % 60 % (31-73); PLATELET COUNT 216 x10^3/uL (140-400); RED BLOOD COUNT 3.45 x10^6/uL (3.50-5.40); RED CELL DISTRIBUTION WIDTH 14.6 % (11.5-14.5); WHITE BLOOD COUNT 5.6 x10^3/uL (4.0-11.0)
[2019-12-02 09:04] LABS: ALBUMIN 2.3 g/dL (3.4-5.0); ALBUMIN/GLOBULIN RATIO 0.7 (1.0-1.7); CALCIUM 7.8 mg/dL (8.5-10.1); CREATININE 1.7 mg/dL (0.6-1.0); GFR 28.4; POTASSIUM 3.7 mmol/L (3.5-5.1); TOTAL BILIRUBIN 0.2 mg/dL (0.2-1.0); TOTAL PROTEIN 5.7 g/dL (6.4-8.2)
[2019-12-02] MEDS: LEVOTHYROXINE SODIUM INJ 50 MCG in NORMAL SALINE 5 ML IV SCH (09:11)
--- NOTE | 2019-12-02 10:43 | PDOC ---
PROGRESS NOTES Subjective Subjective Pt states she feels well, no problems Objective Objective Vital Signs Date Time Temp Pulse Resp B/P (MAP) Pulse Ox O2 Delivery O2 Flow Rate FiO2 12/02/19 08:20 97 Room Air 12/02/19 07:00 97.7 73 18 113/53 (73) 97.7 Intake and Output 12/02/19 07:00 Intake Total 800 ml Balance 800 ml Intake Oral 800 ml # Voids 4 # Bowel Movements 1 Physical Exam Abdomen: Soft, No tenderness Extremities: No clubbing, No cyanosis General: Alert, Oriented X3 HEENT: Atraumatic Lungs: Clear to auscultation Neuro: Normal speech Psych/Mental Status: Mental status NL Assessment Assessment SBO, resolved Plan Plan of Care No new recs Comment Review of Relevant I have reviewed the following items mercedes (where applicable) has been applied. Labs Laboratory Tests Test 11/30/19 12:12 12/01/19 03:58 12/02/19 07:10 Urine Collection Type Unknown Urine Color Yellow Urine Clarity Clear Urine pH 5.5 (<5.0-8.0) Urine Specific [place] 1.015 (1.000-1.030) Urine Protein 30 mg/dL (NEG-TRACE) Urine Glucose (UA) Negative mg/dL (NEG) Urine Ketones (Stick) Trace mg/dL (NEG) Urine Blood Large (NEG) Urine Nitrite Negative (NEG) Urine Bilirubin Negative (NEG) Urine Urobilinogen Dipstick 0.2 mg/dL (0.2 mg/dL) Urine Leukocyte Esterase Negative (NEG) Urine RBC >40 /HPF (0-2) Urine WBC 1-4 /HPF (0-4) Urine Squamous Epithelial Cells Occ /LPF Urine Bacteria Few /HPF (0-FEW) Sodium Level 138 mmol/L (136-145) 139 mmol/L (136-145) Potassium Level 4.0 mmol/L (3.5-5.1) 3.7 mmol/L (3.5-5.1) Chloride Level 107 mmol/L (98-107) 107 mmol/L (98-107) Carbon Dioxide Level 20 mmol/L (21-32) 24 mmol/L (21-32) Anion Gap 11 (6-14) 8 (6-14) Blood Urea Nitrogen 28 mg/dL (7-20) 22 mg/dL (7-20) Creatinine 1.6 mg/dL (0.6-1.0) 1.7 mg/dL (0.6-1.0) Estimated GFR (Cockcroft-Gault) 30.5 28.4 Glucose Level 82 mg/dL (70-99) 89 mg/dL (70-99) Calcium Level 7.5 mg/dL (8.5-10.1) 7.8 mg/dL (8.5-10.1) White Blood Count 5.6 x10^3/uL (4.0-11.0) Red Blood Count 3.45 x10^6/uL (3.50-5.40) Hemoglobin 10.6 g/dL (12.0-15.5) Hematocrit 32.1 % (36.0-47.0) Mean Corpuscular Volume 93 fL (79-100) Mean Corpuscular Hemoglobin 31 pg (25-35) Mean Corpuscular Hemoglobin Concent 33 g/dL (31-37) Red Cell Distribution Width 14.6 % (11.5-14.5) Platelet Count 216 x10^3/uL (140-400) Neutrophils (%) (Auto) 60 % (31-73) Lymphocytes (%) (Auto) 32 % (24-48) Monocytes (%) (Auto) 6 % (0-9) Eosinophils (%) (Auto) 2 % (0-3) Basophils (%) (Auto) 0 % (0-3) Neutrophils # (Auto) 3.4 x10^3/uL (1.8-7.7) Lymphocytes # (Auto) 1.8 x10^3/uL (1.0-4.8) Monocytes # (Auto) 0.3 x10^3/uL (0.0-1.1) Eosinophils # (Auto) 0.1 x10^3/uL (0.0-0.7) Basophils # (Auto) 0.0 x10^3/uL (0.0-0.2) BUN/Creatinine Ratio 13 (6-20) Total Bilirubin 0.2 mg/dL (0.2-1.0) Aspartate Amino Transf (AST/SGOT) 23 U/L (15-37) Alanine Aminotransferase (ALT/SGPT) 16 U/L (14-59) Alkaline Phosphatase 64 U/L (46-116) Total Protein 5.7 g/dL (6.4-8.2) Albumin 2.3 g/dL (3.4-5.0) Albumin/Globulin Ratio 0.7 (1.0-1.7) Laboratory Tests Test 12/02/19 07:10 White Blood Count 5.6 x10^3/uL (4.0-11.0) Red Blood Count 3.45 x10^6/uL (3.50-5.40) Hemoglobin 10.6 g/dL (12.0-15.5) Hematocrit 32.1 % (36.0-47.0) Mean Corpuscular Volume 93 fL (79-100) Mean Corpuscular Hemoglobin 31 pg (25-35) Mean Corpuscular Hemoglobin Concent 33 g/dL (31-37) Red Cell Distribution Width 14.6 % (11.5-14.5) Platelet Count 216 x10^3/uL (140-400) Neutrophils (%) (Auto) 60 % (31-73) Lymphocytes (%) (Auto) 32 % (24-48) Monocytes (%) (Auto) 6 % (0-9) Eosinophils (%) (Auto) 2 % (0-3) Basophils (%) (Auto) 0 % (0-3) Neutrophils # (Auto) 3.4 x10^3/uL (1.8-7.7) Lymphocytes # (Auto) 1.8 x10^3/uL (1.0-4.8) Monocytes # (Auto) 0.3 x10^3/uL (0.0-1.1) Eosinophils # (Auto) 0.1 x10^3/uL (0.0-0.7) Basophils # (Auto) 0.0 x10^3/uL (0.0-0.2) Sodium Level 139 mmol/L (136-145) Potassium Level 3.7 mmol/L (3.5-5.1) Chloride Level 107 mmol/L (98-107) Carbon Dioxide Level 24 mmol/L (21-32) Anion Gap 8 (6-14) Blood Urea Nitrogen 22 mg/dL (7-20) Creatinine 1.7 mg/dL (0.6-1.0) Estimated GFR (Cockcroft-Gault) 28.4 BUN/Creatinine Ratio 13 (6-20) Glucose Level 89 mg/dL (70-99) Calcium Level 7.8 mg/dL (8.5-10.1) Total Bilirubin 0.2 mg/dL (0.2-1.0) Aspartate Amino Transf (AST/SGOT) 23 U/L (15-37) Alanine Aminotransferase (ALT/SGPT) 16 U/L (14-59) Alkaline Phosphatase 64 U/L (46-116) Total Protein 5.7 g/dL (6.4-8.2) Albumin 2.3 g/dL (3.4-5.0) Albumin/Globulin Ratio 0.7 (1.0-1.7) Medications Current Medications Ringer's Solution 1,000 ml @ 100 mls/hr Q10H IV Last administered on 11/24/19at 23:17; Start 11/24/19 at 22:43; Stop 11/25/19 at 19:26; Status DC Ondansetron HCl (Zofran) 4 mg PRN Q4HRS PRN IVP NAUSEA/VOMITING Last administered on 11/29/19at 03:36; Start 11/24/19 at 22:45 Morphine Sulfate (Morphine Sulfate) 2 mg PRN Q3HRS PRN IV PAIN Last administered on 11/27/19at 07:13; Start 11/24/19 at 22:45 Benzocaine (Hurricaine One) 1 spray 1X ONCE MM Last administered on 11/24/19at 23:17; Start 11/24/19 at 23:00; Stop 11/24/19 at 23:02; Status DC Hydralazine HCl (Apresoline Inj) 5 mg PRN Q6HRS PRN IVP ELEVATED BP, SEE COMMENTS; Start 11/25/19 at 00:45 Sodium Chloride 1,000 ml @ 125 mls/hr 1X ONCE IV Last administered on 11/25/19at 10:03; Start 11/25/19 at 09:30; Stop 11/25/19 at 17:29; Status DC Sodium Chloride 1,000 ml @ 100 mls/hr Q10H IV Last administered on 11/27/19at 21:19; Start 11/25/19 at 19:30; Stop 11/28/19 at 13:43; Status DC Lidocaine (Lidoderm) 1 patch DAILY TD Last administered on 12/01/19at 08:36; Start 11/26/19 at 09:45 Miscellaneous (Lidoderm Patch Removal) 1 ea QHS MC Last administered on 12/01/19at 21:00; Start 11/26/19 at 21:00 Heparin Sodium (Porcine) (Heparin Sodium) 5,000 unit Q8HRS SQ Last administered on 12/02/19at 06:42; Start 11/26/19 at 10:00 Albuterol Sulfate (Ventolin Neb Soln) 2.5 mg PRN Q6HRS PRN INH SHORTNESS OF BREATH; Start 11/26/19 at 09:45 Levothyroxine Sodium 50 mcg/ Sodium Chloride 5 ml @ 100 mls/hr Q3DAYS IV Last administered on 12/02/19at 09:11; Start 11/26/19 at 09:45 Iohexol (Omnipaque 300 Mg/ml) 400 ml 1X ONCE PO Last administered on 11/27/19at 07:00; Start 11/27/19 at 07:00; Stop 11/27/19 at 07:01; Status DC Info (CONTRAST GIVEN -- Rx MONITORING) 1 each PRN DAILY PRN MC SEE COMMENTS; Start 11/27/19 at 07:00; Stop 11/29/19 at 06:59; Status DC Metoclopramide HCl (Reglan Vial) 5 mg Q6HRS IVP Last administered on 12/02/19at 06:39; Start 11/28/19 at 00:00 Potassium Chloride/Dextrose/ Sod Cl 1,000 ml @ 100 mls/hr Q10H IV Last administered on 11/28/19at 00:00; Start 11/27/19 at 23:30; Stop 11/28/19 at 13:43; Status DC Fentanyl Citrate (Fentanyl 2ml Vial) 25 mcg PRN Q5MIN PRN IV MILD PAIN 1-3; Start 11/28/19 at 10:30; Stop 11/28/19 at 20:00; Status DC Fentanyl Citrate (Fentanyl 2ml Vial) 50 mcg PRN Q5MIN PRN IV MODERATE TO SEVERE PAIN; Start 11/28/19 at 10:30; Stop 11/28/19 at 20:00; Status DC Morphine Sulfate (Morphine Sulfate) 1 mg PRN Q10MIN PRN IV SEVERE PAIN 7-10; Start 11/28/19 at 10:30; Stop 11/28/19 at 20:00; Status DC Ringer's Solution 1,000 ml @ 30 mls/hr Q24H IV ; Start 11/28/19 at 10:29; Stop 11/28/19 at 22:28; Status DC Hydromorphone HCl (Dilaudid) 0.5 mg PRN Q10MIN PRN IV SEV PAIN, Second choice; Start 11/28/19 at 10:30; Stop 11/28/19 at 20:00; Status DC Sodium Chloride 1,000 ml @ 50 mls/hr Q20H IV Last administered on 12/01/19at 02:19; Start 11/28/19 at 14:00 Pantoprazole Sodium (Protonix) 40 mg DAILYAC PO Last administered on 12/02/19at 08:10; Start 11/30/19 at 07:30 Active Scripts Active Reported Omeprazole 20 Mg Tablet.dr 1 Tab PO DAILY Levothyroxine Sodium 50 Mcg Tablet 50 Mcg PO DAILYAC Benefiber (Wheat Dextrin) 1 Each Powd.pack 1 Each PO BID Albuterol Sulfate Neb Soln (Albuterol Sulfate) 2.5 Mg/3 Ml Vial.neb 2.5 Mg NEB Pred Forte (Prednisolone Acetate) 1 Ml Drops.susp 1 Ml OP Proair Hfa Inhaler (Albuterol Sulfate) 8.5 Gm Hfa.aer.ad 1 Puff INH PRN Q6HRS PRN Losartan Potassium 50 Mg Tablet 1 Tab PO DAILY Hydroxychloroquine Sulfate 200 Mg Tablet 200 Mg PO DAILY Levothyroxine Sodium 50 Mcg Tablet 1 Tab PO DAILY Meloxicam 7.5 Mg Tablet 1 Tab PO DAILY Vitals/I & O Vital Sign - Last 24 Hours 12/01/19 12/01/19 12/01/19 12/01/19 11:02 15:10 19:00 19:50 Temp 99.0 98.9 99.0 99.0 98.9 99.0 Pulse 71 73 98 Resp 18 18 14 B/P (MAP) 126/53 (77) 128/52 (77) 137/79 (98) Pulse Ox 96 96 96 O2 Delivery Room Air Room Air Room Air Room Air 12/01/19 12/02/19 12/02/19 12/02/19 23:00 03:00 07:00 08:20 Temp 98.1 98.4 97.7 98.1 98.4 97.7 Pulse 77 77 73 Resp 14 16 18 B/P (MAP) 111/48 (69) 93/50 (64) 113/53 (73) Pulse Ox 94 96 95 97 O2 Delivery Room Air Room Air Room Air Intake and Output 12/01/19 12/01/19 12/02/19 15:00 23:00 07:00 Intake Total 450 ml 250 ml 100 ml Balance 450 ml 250 ml 100 ml Justicifation of Admission Dx: Justifications for Admission: Justification of Admission Dx: Yes Nutrition Consultation Dietary Evaluation: Recommendations by RD: Dietary education by RD, Increase Calorie Intake, Protein supplementation Comments: ensure tid Expected Outcomes/Goals: to meet >75% est nutr needs Malnutrition Findings: Body Fat Depletion (Non Severe: Mild Depletion Weight Status: Underweight BARBIE CUNHA MD Dec 02, 2019 10:43
[2019-12-02 11:00] VITALS: BP 116/52
--- NOTE | 2019-12-02 11:41 | PDOC ---
PROGRESS NOTES Chief Complaint Chief Complaint impression SBO - cont adat, pain control IV, f/u surgery recs Distended small bowel loops are present with transition within the lower pelvic region. Very distal small bowel is decompressed. Prolonged transit of contrast through the stomach and small bowel. Possibility of low-grade, partial, or intermittent obstruction at the lower pelvic, right distal small bowel region is is raised 12/01 ct Moderate size right pleural effusion present. Small left pleural effusion noted. Extensive honeycombing in the lung bases is present. Interstitial thickening lung sánchez noted. Minimal ascites about the liver noted No radiopaque collecting system calculi. ct 12/01 Moderate gaseous distention of stomach noted. Fluid-filled borderline distended small bowel loops are present. Transition within the lower pelvic region noted. Right lower abdominal wall hernia defect containing nonstrangulated small bowel loop is present. This abdominal wall defect measures 2.6 cm transverse. Exaggerated lordosis of lumbar spine is present. Transitional L5 vertebra is noted. Severe disc space narrowing from T12 to L2 noted. Minimal retrolisthesis of L1 in relation L2 present. Fibrotic findings the lung bases. Concern for usual interstitial pneumonia or idiopathic pulmonary fibrosis. Distention of small bowel with transition in the right pelvic region compatible with small bowel obstruction. BRITTANI - vasomotor nephropathy Severe protein calorie malnutrition Small sliding hiatal hernia with gastroesophageal reflux. Diverticulosis of the colon. Hypothyroidism - IV to po HTN GERD Coronary artery calcification Bibasilar pulmonary fibrotic changes on chest x-ray BRITTANI - ATN , Improving Baseline in 2014 was normal no interval labs Supportive care, Avoid nephrotoxins ,FU with PCP post dc CKD - Renal cortices echogenic on US Micr hematuria at presentation , ? Not sure if Lamb sample, No e/o UTI Repeat UA, if persistent Micr hematuria- Consult urology ua c/w hematuria PLAN FEN - liquid diet PPX - Lovenox FULL CODE Dispo - inpatient small bowel series 11/26 continue diet trial and observe. gi consult noted NEPHROLOGY following ct abd/ pelvis w/o contrast due to persistent hematuria 12/01 pulmonary consult 12/01 11/30 starting to eat soft foods CT ABD R/O URETERAL STONES D/W RN 38 MIN pt exam, chart review, > 50% of time spent with exam, chart review, pt care coordination History of Present Illness History of Present Illness Sr Al is an 88 yo Sister of Idania and lives with her community in [place] w/ PMHx GERD, Hypothyroidism, HTN. She awoke in the middle of the night 11/24/2019 with severe mid abdominal pain and projectile vomiting. She presented to the [facility] Emergency Department for evaluation and was found to have small bowel obstruction and transferred to [facility]. Creatinine noted 2.7, which had improved overnight to 2.3 with intravenous hydration. The patient denied any history of renal failure. CR improved to 2.2. No vomiting overnight still with pain states she passed gas. Now has some left-sided back pain was not able to sleep well. Afebrile no shortness of breath or cough. KUB with SBO. CXR with worsening basilar fibrotic changes. Vitals Vitals Vital Signs Date Time Temp Pulse Resp B/P (MAP) Pulse Ox O2 Delivery O2 Flow Rate FiO2 12/02/19 08:20 97 Room Air 12/02/19 07:00 97.7 73 18 113/53 (73) 97.7 Physical Exam General: Alert, Oriented X3, Cooperative, No acute distress Heart: Regular rate, Normal S1, Normal S2 Lungs: Clear Abdomen: Soft, No tenderness Extremities: No clubbing, No cyanosis Skin: No rashes, No breakdown Labs LABS Examination: CT ABDOMEN PELVIS WO CONTRAST History: Reason: hematuria / Spl. Instructions: / History: Comparison/Correlation: 11/29/2019 renal ultrasound exam, 12/08/2018 CT chest abdomen pelvis with contrast, 11/24/2019 CT abdomen and pelvis with oral contrast only Findings: Axial images of the abdomen and pelvis were obtained without contrast. Sagittal and coronal reformatted images were widened. Marked calcification of the visualized coronary arteries is present. Moderate size right pleural effusion present. Small left pleural effusion noted. Extensive honeycombing in the lung bases is present. Interstitial thickening lung sánchez noted. Minimal ascites about the liver noted. Unenhanced liver, spleen, pancreas, and adrenal glands are normal. Minimal ascites in the paracolic gutter is noted. Anasarca noted. No radiopaque collecting system calculi. Moderate gaseous distention of stomach noted. Fluid-filled borderline distended small bowel loops are present. Transition within the lower pelvic region noted. Retained contrast within numerous diverticuli of the distal descending and sigmoid colon noted. Small amount of pelvic ascites are evident. Right lower abdominal wall hernia defect containing nonstrangulated small bowel loop is present. This abdominal wall defect measures 2.6 cm transverse. Exaggerated lordosis of lumbar spine is present. Transitional L5 vertebra is noted. Severe disc space narrowing from T12 to L2 noted. Minimal retrolisthesis of L1 in relation L2 present. Cholecystectomy. Hysterectomy evident. Impression: Fibrotic findings the lung bases. Concern for usual interstitial pneumonia or idiopathic pulmonary fibrosis. Pleural effusions, greater on the right. Small amount of ascites. Anasarca. Distention of small bowel with transition in the right pelvic region compatible with small bowel obstruction. No radiopaque collecting system calculi. No evidence of collecting system obstruction. If underlying mass lesion is a persistent concern, consider CT of the kidneys with contrast for further evaluation. PQRS Compliance Statement: One or more of the following individualized dose reduction techniques were utilized for this examination: 1. Automated exposure control 2. Adjustment of the mA and/or kV according to patient size 3. Use of iterative reconstruction technique Electronically signed by: John Chung MD (12/02/2019 2:56 PM) [id number] DICTATED and SIGNED BY: JOHN CHUNG MD DATE: 12/02/19 1456 Laboratory Tests Test 12/02/19 07:10 White Blood Count 5.6 x10^3/uL (4.0-11.0) Red Blood Count 3.45 x10^6/uL (3.50-5.40) Hemoglobin 10.6 g/dL (12.0-15.5) Hematocrit 32.1 % (36.0-47.0) Mean Corpuscular Volume 93 fL (79-100) Mean Corpuscular Hemoglobin 31 pg (25-35) Mean Corpuscular Hemoglobin Concent 33 g/dL (31-37) Red Cell Distribution Width 14.6 % (11.5-14.5) Platelet Count 216 x10^3/uL (140-400) Neutrophils (%) (Auto) 60 % (31-73) Lymphocytes (%) (Auto) 32 % (24-48) Monocytes (%) (Auto) 6 % (0-9) Eosinophils (%) (Auto) 2 % (0-3) Basophils (%) (Auto) 0 % (0-3) Neutrophils # (Auto) 3.4 x10^3/uL (1.8-7.7) Lymphocytes # (Auto) 1.8 x10^3/uL (1.0-4.8) Monocytes # (Auto) 0.3 x10^3/uL (0.0-1.1) Eosinophils # (Auto) 0.1 x10^3/uL (0.0-0.7) Basophils # (Auto) 0.0 x10^3/uL (0.0-0.2) Sodium Level 139 mmol/L (136-145) Potassium Level 3.7 mmol/L (3.5-5.1) Chloride Level 107 mmol/L (98-107) Carbon Dioxide Level 24 mmol/L (21-32) Anion Gap 8 (6-14) Blood Urea Nitrogen 22 mg/dL (7-20) Creatinine 1.7 mg/dL (0.6-1.0) Estimated GFR (Cockcroft-Gault) 28.4 BUN/Creatinine Ratio 13 (6-20) Glucose Level 89 mg/dL (70-99) Calcium Level 7.8 mg/dL (8.5-10.1) Total Bilirubin 0.2 mg/dL (0.2-1.0) Aspartate Amino Transf (AST/SGOT) 23 U/L (15-37) Alanine Aminotransferase (ALT/SGPT) 16 U/L (14-59) Alkaline Phosphatase 64 U/L (46-116) Total Protein 5.7 g/dL (6.4-8.2) Albumin 2.3 g/dL (3.4-5.0) Albumin/Globulin Ratio 0.7 (1.0-1.7) Comment Review of Relevant I have reviewed the following items mercedes (where applicable) has been applied. Labs Laboratory Tests Test 11/30/19 12:12 12/01/19 03:58 12/02/19 07:10 Urine Collection Type Unknown Urine Color Yellow Urine Clarity Clear Urine pH 5.5 (<5.0-8.0) Urine Specific [place] 1.015 (1.000-1.030) Urine Protein 30 mg/dL (NEG-TRACE) Urine Glucose (UA) Negative mg/dL (NEG) Urine Ketones (Stick) Trace mg/dL (NEG) Urine Blood Large (NEG) Urine Nitrite Negative (NEG) Urine Bilirubin Negative (NEG) Urine Urobilinogen Dipstick 0.2 mg/dL (0.2 mg/dL) Urine Leukocyte Esterase Negative (NEG) Urine RBC >40 /HPF (0-2) Urine WBC 1-4 /HPF (0-4) Urine Squamous Epithelial Cells Occ /LPF Urine Bacteria Few /HPF (0-FEW) Sodium Level 138 mmol/L (136-145) 139 mmol/L (136-145) Potassium Level 4.0 mmol/L (3.5-5.1) 3.7 mmol/L (3.5-5.1) Chloride Level 107 mmol/L (98-107) 107 mmol/L (98-107) Carbon Dioxide Level 20 mmol/L (21-32) 24 mmol/L (21-32) Anion Gap 11 (6-14) 8 (6-14) Blood Urea Nitrogen 28 mg/dL (7-20) 22 mg/dL (7-20) Creatinine 1.6 mg/dL (0.6-1.0) 1.7 mg/dL (0.6-1.0) Estimated GFR (Cockcroft-Gault) 30.5 28.4 Glucose Level 82 mg/dL (70-99) 89 mg/dL (70-99) Calcium Level 7.5 mg/dL (8.5-10.1) 7.8 mg/dL (8.5-10.1) White Blood Count 5.6 x10^3/uL (4.0-11.0) Red Blood Count 3.45 x10^6/uL (3.50-5.40) Hemoglobin 10.6 g/dL (12.0-15.5) Hematocrit 32.1 % (36.0-47.0) Mean Corpuscular Volume 93 fL (79-100) Mean Corpuscular Hemoglobin 31 pg (25-35) Mean Corpuscular Hemoglobin Concent 33 g/dL (31-37) Red Cell Distribution Width 14.6 % (11.5-14.5) Platelet Count 216 x10^3/uL (140-400) Neutrophils (%) (Auto) 60 % (31-73) Lymphocytes (%) (Auto) 32 % (24-48) Monocytes (%) (Auto) 6 % (0-9) Eosinophils (%) (Auto) 2 % (0-3) Basophils (%) (Auto) 0 % (0-3) Neutrophils # (Auto) 3.4 x10^3/uL (1.8-7.7) Lymphocytes # (Auto) 1.8 x10^3/uL (1.0-4.8) Monocytes # (Auto) 0.3 x10^3/uL (0.0-1.1) Eosinophils # (Auto) 0.1 x10^3/uL (0.0-0.7) Basophils # (Auto) 0.0 x10^3/uL (0.0-0.2) BUN/Creatinine Ratio 13 (6-20) Total Bilirubin 0.2 mg/dL (0.2-1.0) Aspartate Amino Transf (AST/SGOT) 23 U/L (15-37) Alanine Aminotransferase (ALT/SGPT) 16 U/L (14-59) Alkaline Phosphatase 64 U/L (46-116) Total Protein 5.7 g/dL (6.4-8.2) Albumin 2.3 g/dL (3.4-5.0) Albumin/Globulin Ratio 0.7 (1.0-1.7) Laboratory Tests Test 12/02/19 07:10 White Blood Count 5.6 x10^3/uL (4.0-11.0) Red Blood Count 3.45 x10^6/uL (3.50-5.40) Hemoglobin 10.6 g/dL (12.0-15.5) Hematocrit 32.1 % (36.0-47.0) Mean Corpuscular Volume 93 fL (79-100) Mean Corpuscular Hemoglobin 31 pg (25-35) Mean Corpuscular Hemoglobin Concent 33 g/dL (31-37) Red Cell Distribution Width 14.6 % (11.5-14.5) Platelet Count 216 x10^3/uL (140-400) Neutrophils (%) (Auto) 60 % (31-73) Lymphocytes (%) (Auto) 32 % (24-48) Monocytes (%) (Auto) 6 % (0-9) Eosinophils (%) (Auto) 2 % (0-3) Basophils (%) (Auto) 0 % (0-3) Neutrophils # (Auto) 3.4 x10^3/uL (1.8-7.7) Lymphocytes # (Auto) 1.8 x10^3/uL (1.0-4.8) Monocytes # (Auto) 0.3 x10^3/uL (0.0-1.1) Eosinophils # (Auto) 0.1 x10^3/uL (0.0-0.7) Basophils # (Auto) 0.0 x10^3/uL (0.0-0.2) Sodium Level 139 mmol/L (136-145) Potassium Level 3.7 mmol/L (3.5-5.1) Chloride Level 107 mmol/L (98-107) Carbon Dioxide Level 24 mmol/L (21-32) Anion Gap 8 (6-14) Blood Urea Nitrogen 22 mg/dL (7-20) Creatinine 1.7 mg/dL (0.6-1.0) Estimated GFR (Cockcroft-Gault) 28.4 BUN/Creatinine Ratio 13 (6-20) Glucose Level 89 mg/dL (70-99) Calcium Level 7.8 mg/dL (8.5-10.1) Total Bilirubin 0.2 mg/dL (0.2-1.0) Aspartate Amino Transf (AST/SGOT) 23 U/L (15-37) Alanine Aminotransferase (ALT/SGPT) 16 U/L (14-59) Alkaline Phosphatase 64 U/L (46-116) Total Protein 5.7 g/dL (6.4-8.2) Albumin 2.3 g/dL (3.4-5.0) Albumin/Globulin Ratio 0.7 (1.0-1.7) Medications Current Medications Ringer's Solution 1,000 ml @ 100 mls/hr Q10H IV Last administered on 11/24/19at 23:17; Start 11/24/19 at 22:43; Stop 11/25/19 at 19:26; Status DC Ondansetron HCl (Zofran) 4 mg PRN Q4HRS PRN IVP NAUSEA/VOMITING Last adminis tered on 11/29/19at 03:36; Start 11/24/19 at 22:45 Morphine Sulfate (Morphine Sulfate) 2 mg PRN Q3HRS PRN IV PAIN Last administe red on 11/27/19at 07:13; Start 11/24/19 at 22:45 Benzocaine (Hurricaine One) 1 spray 1X ONCE MM Last administered on 11/24/19at 23:17; Start 11/24/19 at 23:00; Stop 11/24/19 at 23:02; Status DC Hydralazine HCl (Apresoline Inj) 5 mg PRN Q6HRS PRN IVP ELEVATED BP, SEE COMMENTS; Start 11/25/19 at 00:45 Sodium Chloride 1,000 ml @ 125 mls/hr 1X ONCE IV Last administered on 11/25/19at 10:03; Start 11/25/19 at 09:30; Stop 11/25/19 at 17:29; Status DC Sodium Chloride 1,000 ml @ 100 mls/hr Q10H IV Last administered on 11/27/19at 21:19; Start 11/25/19 at 19:30; Stop 11/28/19 at 13:43; Status DC Lidocaine (Lidoderm) 1 patch DAILY TD Last administered on 12/01/19at 08:36; Start 11/26/19 at 09:45 Miscellaneous (Lidoderm Patch Removal) 1 ea QHS MC Last administered on 12/01/19at 21:00; Start 11/26/19 at 21:00 Heparin Sodium (Porcine) (Heparin Sodium) 5,000 unit Q8HRS SQ Last administered on 12/02/19at 06:42; Start 11/26/19 at 10:00 Albuterol Sulfate (Ventolin Neb Soln) 2.5 mg PRN Q6HRS PRN INH SHORTNESS OF BREATH; Start 11/26/19 at 09:45 Levothyroxine Sodium 50 mcg/ Sodium Chloride 5 ml @ 100 mls/hr Q3DAYS IV Last administered on 12/02/19at 09:11; Start 11/26/19 at 09:45; Stop 12/02/19 at 11:32; Status DC Iohexol (Omnipaque 300 Mg/ml) 400 ml 1X ONCE PO Last administered on 11/27/19at 07:00; Start 11/27/19 at 07:00; Stop 11/27/19 at 07:01; Status DC Info (CONTRAST GIVEN -- Rx MONITORING) 1 each PRN DAILY PRN MC SEE COMMENTS; Start 11/27/19 at 07:00; Stop 11/29/19 at 06:59; Status DC Metoclopramide HCl (Reglan Vial) 5 mg Q6HRS IVP Last administered on 12/02/19at 06:39; Start 11/28/19 at 00:00 Potassium Chloride/Dextrose/ Sod Cl 1,000 ml @ 100 mls/hr Q10H IV Last administered on 11/28/19at 00:00; Start 11/27/19 at 23:30; Stop 11/28/19 at 13:43; Status DC Fentanyl Citrate (Fentanyl 2ml Vial) 25 mcg PRN Q5MIN PRN IV MILD PAIN 1-3; Start 11/28/19 at 10:30; Stop 11/28/19 at 20:00; Status DC Fentanyl Citrate (Fentanyl 2ml Vial) 50 mcg PRN Q5MIN PRN IV MODERATE TO SEVERE PAIN; Start 11/28/19 at 10:30; Stop 11/28/19 at 20:00; Status DC Morphine Sulfate (Morphine Sulfate) 1 mg PRN Q10MIN PRN IV SEVERE PAIN 7-10; Start 11/28/19 at 10:30; Stop 11/28/19 at 20:00; Status DC Ringer's Solution 1,000 ml @ 30 mls/hr Q24H IV ; Start 11/28/19 at 10:29; Stop 11/28/19 at 22:28; Status DC Hydromorphone HCl (Dilaudid) 0.5 mg PRN Q10MIN PRN IV SEV PAIN, Second choice; Start 11/28/19 at 10:30; Stop 11/28/19 at 20:00; Status DC Sodium Chloride 1,000 ml @ 50 mls/hr Q20H IV Last administered on 12/01/19at 02:19; Start 11/28/19 at 14:00 Pantoprazole Sodium (Protonix) 40 mg DAILYAC PO Last administered on 12/02/19at 08:10; Start 11/30/19 at 07:30 Levothyroxine Sodium (Synthroid) 50 mcg DAILY06 PO ; Start 12/03/19 at 06:00 Active Scripts Active Reported Omeprazole 20 Mg Tablet.dr 1 Tab PO DAILY Levothyroxine Sodium 50 Mcg Tablet 50 Mcg PO DAILYAC Benefiber (Wheat Dextrin) 1 Each Powd.pack 1 Each PO BID Albuterol Sulfate Neb Soln (Albuterol Sulfate) 2.5 Mg/3 Ml Vial.neb 2.5 Mg NEB Pred Forte (Prednisolone Acetate) 1 Ml Drops.susp 1 Ml OP Proair Hfa Inhaler (Albuterol Sulfate) 8.5 Gm Hfa.aer.ad 1 Puff INH PRN Q6HRS PRN Losartan Potassium 50 Mg Tablet 1 Tab PO DAILY Hydroxychloroquine Sulfate 200 Mg Tablet 200 Mg PO DAILY Levothyroxine Sodium 50 Mcg Tablet 1 Tab PO DAILY Meloxicam 7.5 Mg Tablet 1 Tab PO DAILY Vitals/I & O Vital Sign - Last 24 Hours 12/01/19 12/01/19 12/01/19 12/01/19 15:10 19:00 19:50 23:00 Temp 98.9 99.0 98.1 98.9 99.0 98.1 Pulse 73 98 77 Resp 18 14 14 B/P (MAP) 128/52 (77) 137/79 (98) 111/48 (69) Pulse Ox 96 96 94 O2 Delivery Room Air Room Air Room Air Room Air 12/02/19 12/02/19 12/02/19 03:00 07:00 08:20 Temp 98.4 97.7 98.4 97.7 Pulse 77 73 Resp 16 18 B/P (MAP) 93/50 (64) 113/53 (73) Pulse Ox 96 95 97 O2 Delivery Room Air Room Air Intake and Output 12/01/19 12/01/19 12/02/19 15:00 23:00 07:00 Intake Total 450 ml 250 ml 100 ml Balance 450 ml 250 ml 100 ml Nutrition Consultation Dietary Evaluation: Recommendations by RD: Dietary education by RD, Increase Calorie Intake, Protein supplementation Comments: ensure tid Expected Outcomes/Goals: to meet >75% est nutr needs Malnutrition Findings: Body Fat Depletion (Non Severe: Mild Depletion Weight Status: Underweight Justicifation of Admission Dx: Justifications for Admission: Justification of Admission Dx: Yes FRANKLNY VALENCIA MD Dec 02, 2019 11:41
[2019-12-02 13:20] LABS: BILIRUBIN,URINE NEGATIVE (NEG); CLARITY,URINE CLEAR; COLOR,URINE YELLOW; NITRITE,URINE NEGATIVE (NEG); PH,URINE 5.5 (<5.0-8.0); PROTEIN,URINE 30 mg/dL (NEG-TRACE); UROBILINOGEN,URINE 0.2 mg/dL (0.2 mg/dL)
[2019-12-02 13:42] LABS: HYALINE CASTS, URINE FEW /HPF
[2019-12-02 13:44] LABS: BACTERIA,URINE 0 /HPF (0-FEW); GRANULAR CASTS,URINE FEW /HPF; RBC,URINE >40 /HPF (0-2)
--- NOTE | 2019-12-02 14:59 | RAD ---
Examination: CT ABDOMEN PELVIS WO CONTRAST History: Reason: hematuria / Spl. Instructions: / History: Comparison/Correlation: 11/29/2019 renal ultrasound exam, 12/08/2018 CT chest abdomen pelvis with contrast, 11/24/2019 CT abdomen and pelvis with oral contrast only Findings: Axial images of the abdomen and pelvis were obtained without contrast. Sagittal and coronal reformatted images were widened. Marked calcification of the visualized coronary arteries is present. Moderate size right pleural effusion present. Small left pleural effusion noted. Extensive honeycombing in the lung bases is present. Interstitial thickening lung sánchez noted. Minimal ascites about the liver noted. Unenhanced liver, spleen, pancreas, and adrenal glands are normal. Minimal ascites in the paracolic gutter is noted. Anasarca noted. No radiopaque collecting system calculi. Moderate gaseous distention of stomach noted. Fluid-filled borderline distended small bowel loops are present. Transition within the lower pelvic region noted. Retained contrast within numerous diverticuli of the distal descending and sigmoid colon noted. Small amount of pelvic ascites are evident. Right lower abdominal wall hernia defect containing nonstrangulated small bowel loop is present. This abdominal wall defect measures 2.6 cm transverse. Exaggerated lordosis of lumbar spine is present. Transitional L5 vertebra is noted. Severe disc space narrowing from T12 to L2 noted. Minimal retrolisthesis of L1 in relation L2 present. Cholecystectomy. Hysterectomy evident. Impression: Fibrotic findings the lung bases. Concern for usual interstitial pneumonia or idiopathic pulmonary fibrosis. Pleural effusions, greater on the right. Small amount of ascites. Anasarca. Distention of small bowel with transition in the right pelvic region compatible with small bowel obstruction. No radiopaque collecting system calculi. No evidence of collecting system obstruction. If underlying mass lesion is a persistent concern, consider CT of the kidneys with contrast for further evaluation. PQRS Compliance Statement: One or more of the following individualized dose reduction techniques were utilized for this examination: 1. Automated exposure control 2. Adjustment of the mA and/or kV according to patient size 3. Use of iterative reconstruction technique Electronically signed by: John Irving MD (12/02/2019 2:56 PM) [id number]
[2019-12-02 15:00] VITALS: BP 108/55
[2019-12-02] MEDS: IV 1/2 NORMAL SALINE 1,000 ML IV SCH (18:00)
[2019-12-02 19:00] VITALS: BP 112/49
[2019-12-02] MEDS: PATCH REMOVAL. MC SCH (21:00)
[2019-12-02 23:00] VITALS: BP 106/50
[2019-12-03] MEDS: METOCLOPRAMIDE HCL 10 MG/2 ML VIAL. IVP SCH ×5 (00:07→23:55)
[2019-12-03 03:00] VITALS: BP 114/52
[2019-12-03] MEDS: LEVOTHYROXINE 50 MCG TABLET PO SCH (05:53)
[2019-12-03] MEDS: PANTOPRAZOLE 40 MG TABLET.DR. PO SCH ×2 (05:53→15:35)
[2019-12-03] MEDS: HEPARIN for SUB-Q USE 5,000 UNIT/ML VIAL. SQ SCH ×3 (06:01→22:54)
[2019-12-03 07:59] VITALS: BP 111/42
--- NOTE | 2019-12-03 08:35 | CONS ---
DATE OF CONSULTATION: 12/03/2019 I was asked to see this 88-year-old lady for possible interstitial lung disease. HISTORY OF PRESENT ILLNESS: She is a lifelong nonsmoker. She is from [place] and she is hard of hearing, so it is hard to communicate for her here. She has cough with not much sputum for many years. She does have gastroesophageal reflux symptoms. She feels full and tries to eat less as she is thin. She denies shortness of breath. She denies fever or chills. She was admitted for abdominal bloating and discomfort. She was diagnosed with small-bowel obstruction, which is resolved now. Surgery and GI are on the case. PAST MEDICAL HISTORY: Arthritis, hypothyroidism, hypertension, gastroesophageal reflux disease. ALLERGIES: No known drug allergies. MEDICATIONS: Currently, she is on levothyroxine, Protonix, Reglan, heparin 5000 units subcutaneously every 8. SOCIAL HISTORY: She is a lifelong nonsmoker. FAMILY HISTORY: Hypertension. REVIEW OF SYSTEMS: As mentioned as above, other systems otherwise negative. PHYSICAL EXAMINATION: GENERAL: This is a thin lady. VITAL SIGNS: Her O2 saturation on room air is 95%, respiratory rate 18, heart rate 74, blood pressure 114/52, temperature 98.2. HEENT: Normocephalic, atraumatic. Pupils equal, round, reactive to light. Throat is clear. Nose is clear. NECK: There is no lymphadenopathy or thyromegaly. CARDIOVASCULAR: Regular rate and rhythm. PMI is nondisplaced. CHEST: Inspection is normal. LUNGS: There are bibasilar crackles. Percussion is within normal limit. ABDOMEN: Soft. Bowel sounds are good. There is no mass. EXTREMITIES: There is no edema. LYMPHATICS: There is no lymphadenopathy. NEUROLOGIC: Alert. SKIN: Pale. LABORATORY DATA: I reviewed the following lab data: CT of abdomen showed fibrotic changes at the lung base, pleural effusion, small right more than left, small-bowel obstruction. No kidney stone. Hemoglobin 10.6. WBC 5.6 and platelet 216. Sodium 139, potassium 3.7, chloride 107, CO2 of 24, glucose 89, BUN 22, creatinine 1.7. IMPRESSION: 1. Cough. I suspect it is secondary to gastroesophageal reflux disease, rule out interstitial lung disease. 2. Abnormal findings of lung field questionable interstitial lung disease. 3. Gastroesophageal reflux disease. 4. Small-bowel obstruction. 5. Arthritis. Details are not known. 6. Hypertension. 7. Hypothyroidism. 8. Acute kidney injury. PLAN AND RECOMMENDATIONS: 1. Titrate FiO2 to keep O2 saturation 92%. I do recommend a 6-minute walk at discharge. 2. CT of abdomen showed some interstitial lung disease and pleural effusion, small right more than left. There is no need for thoracentesis. I will do CT of the chest to have a better look at lung sánchez. She has gastroesophageal reflux disease, which needs aggressive treatment. I will increase her Protonix to b.i.d. 3. If her CT shows interstitial lung disease, I do recommend a rheumatoid factor, MELINDA, ANCA, Aldolase, CK, fungal serology, hypersensitivity, pneumonitis panel. 4. [employer] Consult[employer] is on the case. 5. GI and surgery are on the case. 6. The findings and recommendations were discussed with RN and the patient. Thank you very much for allowing me to participate in care of this very nice lady. GALILEA HAYDEN M.D. : Nicole JOB#: [id number] / [id number]
[2019-12-03] MEDS: LIDOCAINE (700MG/PATCH) PATCH. TD SCH (09:00)
--- NOTE | 2019-12-03 10:39 | PDOC ---
PROGRESS NOTES Subjective Subjective some mild abdominal pain last night, improved and currently feels well Objective Objective Vital Signs Date Time Temp Pulse Resp B/P (MAP) Pulse Ox O2 Delivery O2 Flow Rate FiO2 12/03/19 07:59 98.0 81 18 111/42 (65) 98 Room Air 98.0 Intake and Output 12/03/19 07:00 Intake Total 390 ml Output Total 500 ml Balance -110 ml Intake Oral 390 ml Output Urine Total 500 ml # Voids 4 Physical Exam Abdomen: Soft, No tenderness Heart: Regular rate Extremities: No clubbing, No cyanosis General: Alert, Oriented X3 HEENT: Atraumatic Neuro: Normal speech Assessment Assessment resolved SBO Plan Plan of Care No new surgical recs Comment Review of Relevant I have reviewed the following items mercedes (where applicable) has been applied. Labs Laboratory Tests Test 12/02/19 07:10 12/02/19 13:15 White Blood Count 5.6 x10^3/uL (4.0-11.0) Red Blood Count 3.45 x10^6/uL (3.50-5.40) Hemoglobin 10.6 g/dL (12.0-15.5) Hematocrit 32.1 % (36.0-47.0) Mean Corpuscular Volume 93 fL (79-100) Mean Corpuscular Hemoglobin 31 pg (25-35) Mean Corpuscular Hemoglobin Concent 33 g/dL (31-37) Red Cell Distribution Width 14.6 % (11.5-14.5) Platelet Count 216 x10^3/uL (140-400) Neutrophils (%) (Auto) 60 % (31-73) Lymphocytes (%) (Auto) 32 % (24-48) Monocytes (%) (Auto) 6 % (0-9) Eosinophils (%) (Auto) 2 % (0-3) Basophils (%) (Auto) 0 % (0-3) Neutrophils # (Auto) 3.4 x10^3/uL (1.8-7.7) Lymphocytes # (Auto) 1.8 x10^3/uL (1.0-4.8) Monocytes # (Auto) 0.3 x10^3/uL (0.0-1.1) Eosinophils # (Auto) 0.1 x10^3/uL (0.0-0.7) Basophils # (Auto) 0.0 x10^3/uL (0.0-0.2) Sodium Level 139 mmol/L (136-145) Potassium Level 3.7 mmol/L (3.5-5.1) Chloride Level 107 mmol/L (98-107) Carbon Dioxide Level 24 mmol/L (21-32) Anion Gap 8 (6-14) Blood Urea Nitrogen 22 mg/dL (7-20) Creatinine 1.7 mg/dL (0.6-1.0) Estimated GFR (Cockcroft-Gault) 28.4 BUN/Creatinine Ratio 13 (6-20) Glucose Level 89 mg/dL (70-99) Calcium Level 7.8 mg/dL (8.5-10.1) Total Bilirubin 0.2 mg/dL (0.2-1.0) Aspartate Amino Transf (AST/SGOT) 23 U/L (15-37) Alanine Aminotransferase (ALT/SGPT) 16 U/L (14-59) Alkaline Phosphatase 64 U/L (46-116) Total Protein 5.7 g/dL (6.4-8.2) Albumin 2.3 g/dL (3.4-5.0) Albumin/Globulin Ratio 0.7 (1.0-1.7) Urine Collection Type Unknown Urine Color Yellow Urine Clarity Clear Urine pH 5.5 (<5.0-8.0) Urine Specific [place] 1.015 (1.000-1.030) Urine Protein 30 mg/dL (NEG-TRACE) Urine Glucose (UA) Negative mg/dL (NEG) Urine Ketones (Stick) Negative mg/dL (NEG) Urine Blood Large (NEG) Urine Nitrite Negative (NEG) Urine Bilirubin Negative (NEG) Urine Urobilinogen Dipstick 0.2 mg/dL (0.2 mg/dL) Urine Leukocyte Esterase Negative (NEG) Urine RBC >40 /HPF (0-2) Urine WBC 5-10 /HPF (0-4) Urine Bacteria 0 /HPF (0-FEW) Urine Hyaline Casts Few /HPF Urine Granular Casts Few /HPF Urine Mucus Slight /LPF Laboratory Tests Test 12/02/19 13:15 Urine Collection Type Unknown Urine Color Yellow Urine Clarity Clear Urine pH 5.5 (<5.0-8.0) Urine Specific [place] 1.015 (1.000-1.030) Urine Protein 30 mg/dL (NEG-TRACE) Urine Glucose (UA) Negative mg/dL (NEG) Urine Ketones (Stick) Negative mg/dL (NEG) Urine Blood Large (NEG) Urine Nitrite Negative (NEG) Urine Bilirubin Negative (NEG) Urine Urobilinogen Dipstick 0.2 mg/dL (0.2 mg/dL) Urine Leukocyte Esterase Negative (NEG) Urine RBC >40 /HPF (0-2) Urine WBC 5-10 /HPF (0-4) Urine Bacteria 0 /HPF (0-FEW) Urine Hyaline Casts Few /HPF Urine Granular Casts Few /HPF Urine Mucus Slight /LPF Medications Current Medications Ringer's Solution 1,000 ml @ 100 mls/hr Q10H IV Last administered on 11/24/19 23:17; Start 11/24/19 at 22:43; Stop 11/25/19 at 19:26; Status DC Ondansetron HCl (Zofran) 4 mg PRN Q4HRS PRN IVP NAUSEA/VOMITING Last administe red on 11/29/19at 03:36; Start 11/24/19 at 22:45 Morphine Sulfate (Morphine Sulfate) 2 mg PRN Q3HRS PRN IV PAIN Last administere d on 11/27/19at 07:13; Start 11/24/19 at 22:45 Benzocaine (Hurricaine One) 1 spray 1X ONCE MM Last administered on 11/24/19at 23:17; Start 11/24/19 at 23:00; Stop 11/24/19 at 23:02; Status DC Hydralazine HCl (Apresoline Inj) 5 mg PRN Q6HRS PRN IVP ELEVATED BP, SEE COMMENTS; Start 11/25/19 at 00:45 Sodium Chloride 1,000 ml @ 125 mls/hr 1X ONCE IV Last administered on 11/25/19at 10:03; Start 11/25/19 at 09:30; Stop 11/25/19 at 17:29; Status DC Sodium Chloride 1,000 ml @ 100 mls/hr Q10H IV Last administered on 11/27/19at 21:19; Start 11/25/19 at 19:30; Stop 11/28/19 at 13:43; Status DC Lidocaine (Lidoderm) 1 patch DAILY TD Last administered on 12/01/19at 08:36; Start 11/26/19 at 09:45 Miscellaneous (Lidoderm Patch Removal) 1 ea QHS MC Last administered on 12/01/19at 21:00; Start 11/26/19 at 21:00 Heparin Sodium (Porcine) (Heparin Sodium) 5,000 unit Q8HRS SQ Last administered on 12/03/19at 06:01; Start 11/26/19 at 10:00 Albuterol Sulfate (Ventolin Neb Soln) 2.5 mg PRN Q6HRS PRN INH SHORTNESS OF BREATH; Start 11/26/19 at 09:45 Levothyroxine Sodium 50 mcg/ Sodium Chloride 5 ml @ 100 mls/hr Q3DAYS IV Last administered on 12/02/19at 09:11; Start 11/26/19 at 09:45; Stop 12/02/19 at 11:32; Status DC Iohexol (Omnipaque 300 Mg/ml) 400 ml 1X ONCE PO Last administered on 11/27/19at 07:00; Start 11/27/19 at 07:00; Stop 11/27/19 at 07:01; Status DC Info (CONTRAST GIVEN -- Rx MONITORING) 1 each PRN DAILY PRN MC SEE COMMENTS; Start 11/27/19 at 07:00; Stop 11/29/19 at 06:59; Status DC Metoclopramide HCl (Reglan Vial) 5 mg Q6HRS IVP Last administered on 12/03/19at 05:53; Start 11/28/19 at 00:00 Potassium Chloride/Dextrose/ Sod Cl 1,000 ml @ 100 mls/hr Q10H IV Last administered on 11/28/19at 00:00; Start 11/27/19 at 23:30; Stop 11/28/19 at 13:43; Status DC Fentanyl Citrate (Fentanyl 2ml Vial) 25 mcg PRN Q5MIN PRN IV MILD PAIN 1-3; Start 11/28/19 at 10:30; Stop 11/28/19 at 20:00; Status DC Fentanyl Citrate (Fentanyl 2ml Vial) 50 mcg PRN Q5MIN PRN IV MODERATE TO SEVERE PAIN; Start 11/28/19 at 10:30; Stop 11/28/19 at 20:00; Status DC Morphine Sulfate (Morphine Sulfate) 1 mg PRN Q10MIN PRN IV SEVERE PAIN 7-10; Start 11/28/19 at 10:30; Stop 11/28/19 at 20:00; Status DC Ringer's Solution 1,000 ml @ 30 mls/hr Q24H IV ; Start 11/28/19 at 10:29; Stop 11/28/19 at 22:28; Status DC Hydromorphone HCl (Dilaudid) 0.5 mg PRN Q10MIN PRN IV SEV PAIN, Second choice; Start 11/28/19 at 10:30; Stop 11/28/19 at 20:00; Status DC Sodium Chloride 1,000 ml @ 50 mls/hr Q20H IV Last administered on 12/01/19at 02:19; Start 11/28/19 at 14:00 Pantoprazole Sodium (Protonix) 40 mg DAILYAC PO Last administered on 12/03/19at 05:53; Start 11/30/19 at 07:30; Stop 12/03/19 at 08:14; Status DC Levothyroxine Sodium (Synthroid) 50 mcg DAILY06 PO Last administered on 12/03/19at 05:53; Start 12/03/19 at 06:00 Pantoprazole Sodium (Protonix) 40 mg BIDAC PO ; Start 12/03/19 at 16:30 Active Scripts Active Reported Omeprazole 20 Mg Tablet.dr 1 Tab PO DAILY Levothyroxine Sodium 50 Mcg Tablet 50 Mcg PO DAILYAC Benefiber (Wheat Dextrin) 1 Each Powd.pack 1 Each PO BID Albuterol Sulfate Neb Soln (Albuterol Sulfate) 2.5 Mg/3 Ml Vial.neb 2.5 Mg NEB Pred Forte (Prednisolone Acetate) 1 Ml Drops.susp 1 Ml OP Proair Hfa Inhaler (Albuterol Sulfate) 8.5 Gm Hfa.aer.ad 1 Puff INH PRN Q6HRS PRN Losartan Potassium 50 Mg Tablet 1 Tab PO DAILY Hydroxychloroquine Sulfate 200 Mg Tablet 200 Mg PO DAILY Levothyroxine Sodium 50 Mcg Tablet 1 Tab PO DAILY Meloxicam 7.5 Mg Tablet 1 Tab PO DAILY Vitals/I & O Vital Sign - Last 24 Hours 12/02/19 12/02/19 12/02/19 12/02/19 11:00 15:00 19:00 20:00 Temp 97.8 98.5 99.5 97.8 98.5 99.5 Pulse 79 77 80 Resp 18 20 B/P (MAP) 116/52 (73) 108/55 (72) 112/49 (70) Pulse Ox 96 95 93 O2 Delivery Room Air 12/02/19 12/03/19 12/03/19 23:00 03:00 07:59 Temp 99.4 98.2 98.0 99.4 98.2 98.0 Pulse 80 74 81 Resp 16 18 18 B/P (MAP) 106/50 (68) 114/52 (72) 111/42 (65) Pulse Ox 94 95 98 O2 Delivery Room Air Intake and Output 12/02/19 12/02/19 12/03/19 15:00 23:00 07:00 Intake Total 240 ml 150 ml Output Total 500 ml Balance 240 ml -350 ml Justicifation of Admission Dx: Justifications for Admission: Justification of Admission Dx: Yes Nutrition Consultation Dietary Evaluation: Recommendations by RD: Dietary education by RD, Increase Calorie Intake, Protein supplementation Comments: ensure tid Expected Outcomes/Goals: to meet >75% est nutr needs Malnutrition Findings: Body Fat Depletion (Non Severe: Mild Depletion Weight Status: Underweight BARBIE CUNHA MD Dec 03, 2019 10:39
--- NOTE | 2019-12-03 10:55 | PDOC ---
PROGRESS NOTES Chief Complaint Chief Complaint impression SBO - cont adat, pain control IV, f/u surgery recs Distended small bowel loops are present with transition within the lower pelvic region. Very distal small bowel is decompressed. Prolonged transit of contrast through the stomach and small bowel. Possibility of low-grade, partial, or intermittent obstruction at the lower pelvic, right distal small bowel region is is raised 12/01 ct Moderate size right pleural effusion present. Small left pleural effusion noted. Extensive honeycombing in the lung bases is present. Interstitial thickening lung sánchez noted. Minimal ascites about the liver noted No radiopaque collecting system calculi. ct 12/01 Moderate gaseous distention of stomach noted. Fluid-filled borderline distended small bowel loops are present. Transition within the lower pelvic region noted. Right lower abdominal wall hernia defect containing nonstrangulated small bowel loop is present. This abdominal wall defect measures 2.6 cm transverse. Exaggerated lordosis of lumbar spine is present. Transitional L5 vertebra is noted. Severe disc space narrowing from T12 to L2 noted. Minimal retrolisthesis of L1 in relation L2 present. Fibrotic findings the lung bases. Concern for usual interstitial pneumonia or idiopathic pulmonary fibrosis. Distention of small bowel with transition in the right pelvic region compatible with small bowel obstruction. BRITTANI - vasomotor nephropathy Severe protein calorie malnutrition Small sliding hiatal hernia with gastroesophageal reflux. Diverticulosis of the colon. Hypothyroidism - IV to po HTN GERD Coronary artery calcification Bibasilar pulmonary fibrotic changes on chest x-ray BRITTANI - ATN , Improving Baseline in 2014 was normal no interval labs Supportive care, Avoid nephrotoxins ,FU with PCP post dc CKD - Renal cortices echogenic on US Micr hematuria at presentation , ? Not sure if Lamb sample, No e/o UTI Repeat UA, if persistent Micr hematuria- Consult urology ua c/w hematuria 12/02 PLAN FEN - liquid diet PPX - Lovenox FULL CODE Dispo - inpatient small bowel series 11/26 continue diet trial and observe. gi consult noted NEPHROLOGY following ct abd/ pelvis w/o contrast due to persistent hematuria 12/01 pulmonary consult 12/01 RE . Fibrotic findings the lung bases. Concern for usual interstitial pneumonia or idiopathic pulmonary fibrosis. INC PROTONIX TO BID NEEDS UROLOGY CONSULT , PLAN TRANSFER TO [facility] 12/03 11/30 starting to eat soft foods CT ABD R/O URETERAL STONES D/W RN 36 MIN pt exam, chart review, > 50% of time spent with exam, chart review, pt care coordination History of Present Illness History of Present Illness Sr Al is an 88 yo Sister of Idania and lives with her community in [place] w/ PMHx GERD, Hypothyroidism, HTN. She awoke in the middle of the night 11/24/2019 with severe mid abdominal pain and projectile vomiting. She presented to the [facility] Emergency Department for evaluation and was found to have small bowel obstruction and transferred to [facility]. Creatinine noted 2.7, which had improved overnight to 2.3 with intravenous hydration. The patient denied any history of renal failure. CR improved to 2.2. No vomiting overnight still with pain states she passed gas. Now has some left-sided back pain was not able to sleep well. Afebrile no shortness of breath or cough. KUB with SBO. CXR with worsening basilar fibrotic changes. Vitals Vitals Vital Signs Date Time Temp Pulse Resp B/P (MAP) Pulse Ox O2 Delivery O2 Flow Rate FiO2 12/03/19 07:59 98.0 81 18 111/42 (65) 98 Room Air 98.0 Physical Exam General: Alert, Oriented X3 Heart: Regular rate Lungs: Clear Abdomen: Soft, No tenderness Extremities: No clubbing, No cyanosis Skin: No rashes, No breakdown Labs LABS REASON: hematuria PROCEDURE: CT ABDOMEN PELVIS WO CONTRAST Examination: CT ABDOMEN PELVIS WO CONTRAST History: Reason: hematuria / Spl. Instructions: / History: Comparison/Correlation: 11/29/2019 renal ultrasound exam, 12/08/2018 CT chest abdomen pelvis with contrast, 11/24/2019 CT abdomen and pelvis with oral contrast only Findings: Axial images of the abdomen and pelvis were obtained without contrast. Sagittal and coronal reformatted images were widened. Marked calcification of the visualized coronary arteries is present. Moderate size right pleural effusion present. Small left pleural effusion noted. Extensive honeycombing in the lung bases is present. Interstitial thickening lung sánchez noted. Minimal ascites about the liver noted. Unenhanced liver, spleen, pancreas, and adrenal glands are normal. Minimal ascites in the paracolic gutter is noted. Anasarca noted. No radiopaque collecting system calculi. Moderate gaseous distention of stomach noted. Fluid-filled borderline distended small bowel loops are present. Transition within the lower pelvic region noted. Retained contrast within numerous diverticuli of the distal descending and sigmoid colon noted. Small amount of pelvic ascites are evident. Right lower abdominal wall hernia defect containing nonstrangulated small bowel loop is present. This abdominal wall defect measures 2.6 cm transverse. Exaggerated lordosis of lumbar spine is present. Transitional L5 vertebra is noted. Severe disc space narrowing from T12 to L2 noted. Minimal retrolisthesis of L1 in relation L2 present. Cholecystectomy. Hysterectomy evident. Impression: Fibrotic findings the lung bases. Concern for usual interstitial pneumonia or idiopathic pulmonary fibrosis. Pleural effusions, greater on the right. Small amount of ascites. Anasarca. Distention of small bowel with transition in the right pelvic region compatible with small bowel obstruction. No radiopaque collecting system calculi. No evidence of collecting system obstruction. If underlying mass lesion is a persistent concern, consider CT of the kidneys with contrast for further evaluation. PQRS Compliance Statement: One or more of the following individualized dose reduction techniques were utilized for this examination: 1. Automated exposure control 2. Adjustment of the mA and/or kV according to patient size 3. Use of iterative reconstruction technique Electronically signed by: John Chung MD (12/02/2019 2:56 PM) [id number] DICTATED and SIGNED BY: JOHN CHUNG MD DATE: 12/02/19 1456 STATUS: ADM IN ORD. PHYSICIAN: FRANKLYN VALENCIA MD REASON: hematuria PROCEDURE: CT ABDOMEN PELVIS WO CONTRAST Examination: CT ABDOMEN PELVIS WO CONTRAST History: Reason: hematuria / Spl. Instructions: / History: Comparison/Correlation: 11/29/2019 renal ultrasound exam, 12/08/2018 CT chest abdomen pelvis with contrast, 11/24/2019 CT abdomen and pelvis with oral contrast only Findings: Axial images of the abdomen and pelvis were obtained without contrast. Sagittal and coronal reformatted images were widened. Marked calcification of the visualized coronary arteries is present. Moderate size right pleural effusion present. Small left pleural effusion noted. Extensive honeycombing in the lung bases is present. Interstitial thickening lung sánchez noted. Minimal ascites about the liver noted. Unenhanced liver, spleen, pancreas, and adrenal glands are normal. Minimal ascites in the paracolic gutter is noted. Anasarca noted. No radiopaque collecting system calculi. Moderate gaseous distention of stomach noted. Fluid-filled borderline distended small bowel loops are present. Transition within the lower pelvic region noted. Retained contrast within numerous diverticuli of the distal descending and sigmoid colon noted. Small amount of pelvic ascites are evident. Right lower abdominal wall hernia defect containing nonstrangulated small bowel loop is present. This abdominal wall defect measures 2.6 cm transverse. Exaggerated lordosis of lumbar spine is present. Transitional L5 vertebra is noted. Severe disc space narrowing from T12 to L2 noted. Minimal retrolisthesis of L1 in relation L2 present. Cholecystectomy. Hysterectomy evident. Impression: Fibrotic findings the lung bases. Concern for usual interstitial pneumonia or idiopathic pulmonary fibrosis. Pleural effusions, greater on the right. Small amount of ascites. Anasarca. Distention of small bowel with transition in the right pelvic region compatible with small bowel obstruction. No radiopaque collecting system calculi. No evidence of collecting system obstruction. If underlying mass lesion is a persistent concern, consider CT of the kidneys with contrast for further evaluation. PQRS Compliance Statement: One or more of the following individualized dose reduction techniques were utilized for this examination: 1. Automated exposure control 2. Adjustment of the mA and/or kV according to patient size 3. Use of iterative reconstruction technique Electronically signed by: John Cuhng MD (12/02/2019 2:56 PM) [id number] DICTATED and SIGNED BY: JOHN CHUNG MD DATE: 12/02/19 1456 Laboratory Tests Test 12/02/19 13:15 Urine Collection Type Unknown Urine Color Yellow Urine Clarity Clear Urine pH 5.5 (<5.0-8.0) Urine Specific [place] 1.015 (1.000-1.030) Urine Protein 30 mg/dL (NEG-TRACE) Urine Glucose (UA) Negative mg/dL (NEG) Urine Ketones (Stick) Negative mg/dL (NEG) Urine Blood Large (NEG) Urine Nitrite Negative (NEG) Urine Bilirubin Negative (NEG) Urine Urobilinogen Dipstick 0.2 mg/dL (0.2 mg/dL) Urine Leukocyte Esterase Negative (NEG) Urine RBC >40 /HPF (0-2) Urine WBC 5-10 /HPF (0-4) Urine Bacteria 0 /HPF (0-FEW) Urine Hyaline Casts Few /HPF Urine Granular Casts Few /HPF Urine Mucus Slight /LPF Comment Review of Relevant I have reviewed the following items mercedes (where applicable) has been applied. Labs Laboratory Tests Test 12/02/19 07:10 12/02/19 13:15 White Blood Count 5.6 x10^3/uL (4.0-11.0) Red Blood Count 3.45 x10^6/uL (3.50-5.40) Hemoglobin 10.6 g/dL (12.0-15.5) Hematocrit 32.1 % (36.0-47.0) Mean Corpuscular Volume 93 fL (79-100) Mean Corpuscular Hemoglobin 31 pg (25-35) Mean Corpuscular Hemoglobin Concent 33 g/dL (31-37) Red Cell Distribution Width 14.6 % (11.5-14.5) Platelet Count 216 x10^3/uL (140-400) Neutrophils (%) (Auto) 60 % (31-73) Lymphocytes (%) (Auto) 32 % (24-48) Monocytes (%) (Auto) 6 % (0-9) Eosinophils (%) (Auto) 2 % (0-3) Basophils (%) (Auto) 0 % (0-3) Neutrophils # (Auto) 3.4 x10^3/uL (1.8-7.7) Lymphocytes # (Auto) 1.8 x10^3/uL (1.0-4.8) Monocytes # (Auto) 0.3 x10^3/uL (0.0-1.1) Eosinophils # (Auto) 0.1 x10^3/uL (0.0-0.7) Basophils # (Auto) 0.0 x10^3/uL (0.0-0.2) Sodium Level 139 mmol/L (136-145) Potassium Level 3.7 mmol/L (3.5-5.1) Chloride Level 107 mmol/L (98-107) Carbon Dioxide Level 24 mmol/L (21-32) Anion Gap 8 (6-14) Blood Urea Nitrogen 22 mg/dL (7-20) Creatinine 1.7 mg/dL (0.6-1.0) Estimated GFR (Cockcroft-Gault) 28.4 BUN/Creatinine Ratio 13 (6-20) Glucose Level 89 mg/dL (70-99) Calcium Level 7.8 mg/dL (8.5-10.1) Total Bilirubin 0.2 mg/dL (0.2-1.0) Aspartate Amino Transf (AST/SGOT) 23 U/L (15-37) Alanine Aminotransferase (ALT/SGPT) 16 U/L (14-59) Alkaline Phosphatase 64 U/L (46-116) Total Protein 5.7 g/dL (6.4-8.2) Albumin 2.3 g/dL (3.4-5.0) Albumin/Globulin Ratio 0.7 (1.0-1.7) Urine Collection Type Unknown Urine Color Yellow Urine Clarity Clear Urine pH 5.5 (<5.0-8.0) Urine Specific [place] 1.015 (1.000-1.030) Urine Protein 30 mg/dL (NEG-TRACE) Urine Glucose (UA) Negative mg/dL (NEG) Urine Ketones (Stick) Negative mg/dL (NEG) Urine Blood Large (NEG) Urine Nitrite Negative (NEG) Urine Bilirubin Negative (NEG) Urine Urobilinogen Dipstick 0.2 mg/dL (0.2 mg/dL) Urine Leukocyte Esterase Negative (NEG) Urine RBC >40 /HPF (0-2) Urine WBC 5-10 /HPF (0-4) Urine Bacteria 0 /HPF (0-FEW) Urine Hyaline Casts Few /HPF Urine Granular Casts Few /HPF Urine Mucus Slight /LPF Laboratory Tests Test 12/02/19 13:15 Urine Collection Type Unknown Urine Color Yellow Urine Clarity Clear Urine pH 5.5 (<5.0-8.0) Urine Specific [place] 1.015 (1.000-1.030) Urine Protein 30 mg/dL (NEG-TRACE) Urine Glucose (UA) Negative mg/dL (NEG) Urine Ketones (Stick) Negative mg/dL (NEG) Urine Blood Large (NEG) Urine Nitrite Negative (NEG) Urine Bilirubin Negative (NEG) Urine Urobilinogen Dipstick 0.2 mg/dL (0.2 mg/dL) Urine Leukocyte Esterase Negative (NEG) Urine RBC >40 /HPF (0-2) Urine WBC 5-10 /HPF (0-4) Urine Bacteria 0 /HPF (0-FEW) Urine Hyaline Casts Few /HPF Urine Granular Casts Few /HPF Urine Mucus Slight /LPF Medications Current Medications Ringer's Solution 1,000 ml @ 100 mls/hr Q10H IV Last administered on 11/24/19at 23:17; Start 11/24/19 at 22:43; Stop 11/25/19 at 19:26; Status DC Ondansetron HCl (Zofran) 4 mg PRN Q4HRS PRN IVP NAUSEA/VOMITING Last administered on 11/29/19at 03:36; Start 11/24/19 at 22:45 Morphine Sulfate (Morphine Sulfate) 2 mg PRN Q3HRS PRN IV PAIN Last administered on 11/27/19at 07:13; Start 11/24/19 at 22:45 Benzocaine (Hurricaine One) 1 spray 1X ONCE MM Last administered on 11/24/19at 23:17; Start 11/24/19 at 23:00; Stop 11/24/19 at 23:02; Status DC Hydralazine HCl (Apresoline Inj) 5 mg PRN Q6HRS PRN IVP ELEVATED BP, SEE COMMENTS; Start 11/25/19 at 00:45 Sodium Chloride 1,000 ml @ 125 mls/hr 1X ONCE IV Last administered on 11/25/19at 10:03; Start 11/25/19 at 09:30; Stop 11/25/19 at 17:29; Status DC Sodium Chloride 1,000 ml @ 100 mls/hr Q10H IV Last administered on 11/27/19at 21:19; Start 11/25/19 at 19:30; Stop 11/28/19 at 13:43; Status DC Lidocaine (Lidoderm) 1 patch DAILY TD Last administered on 12/01/19at 08:36; Start 11/26/19 at 09:45 Miscellaneous (Lidoderm Patch Removal) 1 ea QHS MC Last administered on 12/01/19at 21:00; Start 11/26/19 at 21:00 Heparin Sodium (Porcine) (Heparin Sodium) 5,000 unit Q8HRS SQ Last administered on 12/03/19at 06:01; Start 11/26/19 at 10:00 Albuterol Sulfate (Ventolin Neb Soln) 2.5 mg PRN Q6HRS PRN INH SHORTNESS OF BREATH; Start 11/26/19 at 09:45 Levothyroxine Sodium 50 mcg/ Sodium Chloride 5 ml @ 100 mls/hr Q3DAYS IV Last administered on 12/02/19at 09:11; Start 11/26/19 at 09:45; Stop 12/02/19 at 11:32; Status DC Iohexol (Omnipaque 300 Mg/ml) 400 ml 1X ONCE PO Last administered on 11/27/19at 07:00; Start 11/27/19 at 07:00; Stop 11/27/19 at 07:01; Status DC Info (CONTRAST GIVEN -- Rx MONITORING) 1 each PRN DAILY PRN MC SEE COMMENTS; Start 11/27/19 at 07:00; Stop 11/29/19 at 06:59; Status DC Metoclopramide HCl (Reglan Vial) 5 mg Q6HRS IVP Last administered on 12/03/19at 05:53; Start 11/28/19 at 00:00 Potassium Chloride/Dextrose/ Sod Cl 1,000 ml @ 100 mls/hr Q10H IV Last administered on 11/28/19at 00:00; Start 11/27/19 at 23:30; Stop 11/28/19 at 13:43; Status DC Fentanyl Citrate (Fentanyl 2ml Vial) 25 mcg PRN Q5MIN PRN IV MILD PAIN 1-3; Start 11/28/19 at 10:30; Stop 11/28/19 at 20:00; Status DC Fentanyl Citrate (Fentanyl 2ml Vial) 50 mcg PRN Q5MIN PRN IV MODERATE TO SEVERE PAIN; Start 11/28/19 at 10:30; Stop 11/28/19 at 20:00; Status DC Morphine Sulfate (Morphine Sulfate) 1 mg PRN Q10MIN PRN IV SEVERE PAIN 7-10; Start 11/28/19 at 10:30; Stop 11/28/19 at 20:00; Status DC Ringer's Solution 1,000 ml @ 30 mls/hr Q24H IV ; Start 11/28/19 at 10:29; Stop 11/28/19 at 22:28; Status DC Hydromorphone HCl (Dilaudid) 0.5 mg PRN Q10MIN PRN IV SEV PAIN, Second choice; Start 11/28/19 at 10:30; Stop 11/28/19 at 20:00; Status DC Sodium Chloride 1,000 ml @ 50 mls/hr Q20H IV Last administered on 12/01/19at 02:19; Start 11/28/19 at 14:00 Pantoprazole Sodium (Protonix) 40 mg DAILYAC PO Last administered on 12/03/19at 05:53; Start 11/30/19 at 07:30; Stop 12/03/19 at 08:14; Status DC Levothyroxine Sodium (Synthroid) 50 mcg DAILY06 PO Last administered on 12/03/19at 05:53; Start 12/03/19 at 06:00 Pantoprazole Sodium (Protonix) 40 mg BIDAC PO ; Start 12/03/19 at 16:30 Active Scripts Active Reported Omeprazole 20 Mg Tablet.dr 1 Tab PO DAILY Levothyroxine Sodium 50 Mcg Tablet 50 Mcg PO DAILYAC Benefiber (Wheat Dextrin) 1 Each Powd.pack 1 Each PO BID Albuterol Sulfate Neb Soln (Albuterol Sulfate) 2.5 Mg/3 Ml Vial.neb 2.5 Mg NEB Pred Forte (Prednisolone Acetate) 1 Ml Drops.susp 1 Ml OP Proair Hfa Inhaler (Albuterol Sulfate) 8.5 Gm Hfa.aer.ad 1 Puff INH PRN Q6HRS PRN Losartan Potassium 50 Mg Tablet 1 Tab PO DAILY Hydroxychloroquine Sulfate 200 Mg Tablet 200 Mg PO DAILY Levothyroxine Sodium 50 Mcg Tablet 1 Tab PO DAILY Meloxicam 7.5 Mg Tablet 1 Tab PO DAILY Vitals/I & O Vital Sign - Last 24 Hours 12/02/19 12/02/19 12/02/19 12/02/19 11:00 15:00 19:00 20:00 Temp 97.8 98.5 99.5 97.8 98.5 99.5 Pulse 79 77 80 Resp 20 B/P (MAP) 116/52 (73) 108/55 (72) 112/49 (70) Pulse Ox 96 95 93 O2 Delivery Room Air 12/02/19 12/03/19 12/03/19 23:00 03:00 07:59 Temp 99.4 98.2 98.0 99.4 98.2 98.0 Pulse 80 74 81 Resp 16 18 18 B/P (MAP) 106/50 (68) 114/52 (72) 111/42 (65) Pulse Ox 94 95 98 O2 Delivery Room Air Intake and Output 12/02/19 12/02/19 12/03/19 15:00 23:00 07:00 Intake Total 240 ml 150 ml Output Total 500 ml Balance 240 ml -350 ml Nutrition Consultation Dietary Evaluation: Recommendations by RD: Dietary education by RD, Increase Calorie Intake, Protein supplementation Comments: ensure tid Expected Outcomes/Goals: to meet >75% est nutr needs Malnutrition Findings: Body Fat Depletion (Non Severe: Mild Depletion Weight Status: Underweight Justicifation of Admission Dx: Justifications for Admission: Justification of Admission Dx: Yes FRANKLYN VALENCIA MD Dec 03, 2019 10:55
[2019-12-03 11:59] VITALS: BP 106/50
[2019-12-03] MEDS: IV 1/2 NORMAL SALINE 1,000 ML IV SCH (14:00)
--- NOTE | 2019-12-03 14:38 | RAD ---
PQRS Compliance Statement: One or more of the following individualized dose reduction techniques were utilized for this examination: 1. Automated exposure control 2. Adjustment of the mA and/or kV according to patient size 3. Use of iterative reconstruction technique CT CHEST WO CONTRAST 12/03/2019 2:21 PM Indication: Interstitial lung disease. COMPARISON: None available. TECHNIQUE: Multiple axial CT images of the chest were obtained without intravenous contrast. Coronal and sagittal reformats are provided. FINDINGS: No suspicious thyroid mass. Precarinal lymph node measures 8 mm. Evaluation for hilar lymphadenopathy is limited by lack of contrast. No pathologically enlarged thoracic lymph nodes are identified. Heart size is within normal limits. Three-vessel coronary artery vascular calcific effusions are present. Thoracic aorta is normal in course and caliber with moderate calcified atheromatous plaque. Evaluation of solid abdominal viscera is limited by lack of intravenous contrast. Visualized portions of the liver, spleen, bilateral adrenal glands and pancreas are normal in appearance. Small right and trace left pleural effusions. There are bilateral lower lung zone predominance reticular interstitial changes. Honeycombing is noted at the lung bases and within the lateral segment right middle lobe and inferior lingula. No significant groundglass opacities. Traction bronchiectasis noted in the lower lobes. Tracheal bronchial calcifications are present. No suspicious solid noncalcified pulmonary nodule. No focal airspace consolidation. No pulmonary vascular congestion or pneumothorax. No suspicious osseous abnormality is identified. IMPRESSION: 1. Constellation of findings are most suggestive of interstitial lung disease as may be seen with usual interstitial pneumonia or fibrotic-type nonspecific interstitial pneumonia. 2. Small right and trace left pleural effusions. 3. Three-vessel coronary artery vascular calcifications. Electronically signed by: Tram Phan MD (12/03/2019 2:35 PM) [facility]
[2019-12-03 15:52] VITALS: BP 105/52
[2019-12-03 19:00] VITALS: BP 116/51
[2019-12-03] MEDS: PATCH REMOVAL. MC SCH (21:00)
[2019-12-03 23:00] VITALS: BP 109/50
[2019-12-04 03:00] VITALS: BP 103/52
[2019-12-04 04:50] LABS: ALBUMIN 2.3 g/dL (3.4-5.0); ALBUMIN/GLOBULIN RATIO 0.8 (1.0-1.7); CALCIUM 7.6 mg/dL (8.5-10.1); CREATININE 1.7 mg/dL (0.6-1.0); GFR 28.4; POTASSIUM 3.8 mmol/L (3.5-5.1); TOTAL BILIRUBIN 0.1 mg/dL (0.2-1.0); TOTAL PROTEIN 5.2 g/dL (6.4-8.2)
[2019-12-04] MEDS: METOCLOPRAMIDE HCL 10 MG/2 ML VIAL. IVP SCH ×2 (05:43→12:00)
--- NOTE | 2019-12-04 05:43 | NUR ---
Client refuses lidocane patch and reglan
[2019-12-04] MEDS: LEVOTHYROXINE 50 MCG TABLET PO SCH (06:10)
[2019-12-04] MEDS: HEPARIN for SUB-Q USE 5,000 UNIT/ML VIAL. SQ SCH ×2 (06:25→14:05)
[2019-12-04 07:00] VITALS: BP 134/64
[2019-12-04] MEDS: PANTOPRAZOLE 40 MG TABLET.DR. PO SCH ×2 (07:55→17:05)
[2019-12-04] MEDS: LIDOCAINE (700MG/PATCH) PATCH. TD SCH (07:57)
--- NOTE | 2019-12-04 08:00 | PDOC ---
PROGRESS NOTES Chief Complaint Chief Complaint discharge dx SBO - cont adat, pain control IV, f/u surgery recs Distended small bowel loops are present with transition within the lower pelvic region. Very distal small bowel is decompressed. Prolonged transit of contrast through the stomach and small bowel. Possibility of low-grade, partial, or intermittent obstruction at the lower pelvic, right distal small bowel region is is raised 12/01 ct Moderate size right pleural effusion present. Small left pleural effusion noted. Extensive honeycombing in the lung bases is present. Interstitial thickening lung sánchez noted. Minimal ascites about the liver noted No radiopaque collecting system calculi. ct 12/01 Moderate gaseous distention of stomach noted. Fluid-filled borderline distended small bowel loops are present. Transition within the lower pelvic region noted. Right lower abdominal wall hernia defect containing nonstrangulated small holley l loop is present. This abdominal wall defect measures 2.6 cm transverse. Exaggerated lordosis of lumbar spine is present. Transitional L5 vertebra is noted. Severe disc space narrowing from T12 to L2 noted. Minimal retrolisthesis of L1 in relation L2 present. Fibrotic findings the lung bases. Concern for usual interstitial pneumonia or idiopathic pulmonary fibrosis. Distention of small bowel with transition in the right pelvic region compatible with small bowel obstruction. BRITTANI - vasomotor nephropathy Severe protein calorie malnutrition Small sliding hiatal hernia with gastroesophageal reflux. Diverticulosis of the colon. Hypothyroidism - IV to po HTN GERD Coronary artery calcification Bibasilar pulmonary fibrotic changes on chest x-ray BRITTANI - ATN , Improving Baseline in 2014 was normal no interval labs Supportive care, Avoid nephrotoxins ,FU with PCP post dc CKD - Renal cortices echogenic on US Micr hematuria at presentation , ? Not sure if Lamb sample, No e/o UTI Repeat UA, if persistent Micr hematuria- Consult urology ua c/w hematuria 12/02 PLAN FEN - liquid diet PPX - Lovenox FULL CODE Dispo - inpatient small bowel series 11/26 continue diet trial and observe. gi consult noted NEPHROLOGY following ct abd/ pelvis w/o contrast due to persistent hematuria 12/01 pulmonary consult 12/01 RE . Fibrotic findings the lung bases. Concern for usual interstitial pneumonia or idiopathic pulmonary fibrosis. INC PROTONIX TO BID NEEDS UROLOGY CONSULT , PLAN case management making [facility] UROLOGY APPT SAMIA D/W HER BY TEXT 11/30 starting to eat soft foods CT ABD R/O URETERAL STONES D/W RN NEEDS UROLOGY REFERRAL SAMIA , CAN BE DONE OUTPT, NEEDS TO BE SOON D/W CASE ,MGT 34 MIN D/C PLANNING MIN pt exam, chart review, > 50% of time spent with exam, chart review, pt care coordination History of Present Illness History of Present Illness Sr Al is an 88 yo Sister of Idania and lives with her community in [place] w/ PMHx GERD, Hypothyroidism, HTN. She awoke in the middle of the night 11/24/2019 with severe mid abdominal pain and projectile vomiting. She presented to the [facility] Emergency Department for evaluation and was found to have small bowel obstruction and transferred to [facility]. Creatinine noted 2.7, which had improved overnight to 2.3 with intravenous hydration. The patient denied any history of renal failure. CR improved to 2.2. No vomiting overnight still with pain states she passed gas. Now has some left-sided back pain was not able to sleep well. Afebrile no shortness of breath or cough. KUB with SBO. CXR with worsening basilar fibrotic changes. Vitals Vitals Vital Signs Date Time Temp Pulse Resp B/P (MAP) Pulse Ox O2 Delivery O2 Flow Rate FiO2 12/04/19 03:00 97.8 79 16 103/52 (69) 95 97.8 12/03/19 20:00 Room Air Physical Exam General: Alert, Oriented X3, No acute distress Heart: Regular rate, Normal S1, Normal S2 Lungs: Clear Abdomen: Normal bowel sounds, Soft, No tenderness Extremities: No clubbing, No cyanosis Skin: No rashes, No breakdown Labs LABS SEX: F EXAM STATUS: ADM IN ORD. PHYSICIAN: FRANKLYN VALENCIA MD REASON: hematuria PROCEDURE: CT ABDOMEN PELVIS WO CONTRAST Examination: CT ABDOMEN PELVIS WO CONTRAST History: Reason: hematuria / Spl. Instructions: / History: Comparison/Correlation: 11/29/2019 renal ultrasound exam, 12/08/2018 CT chest abdomen pelvis with contrast, 11/24/2019 CT abdomen and pelvis with oral contrast only Findings: Axial images of the abdomen and pelvis were obtained without contrast. Sagittal and coronal reformatted images were widened. Marked calcification of the visualized coronary arteries is present. Moderate size right pleural effusion present. Small left pleural effusion noted. Extensive honeycombing in the lung bases is present. Interstitial thickening lung sánchez noted. Minimal ascites about the liver noted. Unenhanced liver, spleen, pancreas, and adrenal glands are normal. Minimal ascites in the paracolic gutter is noted. Anasarca noted. No radiopaque collecting system calculi. Moderate gaseous distention of stomach noted. Fluid-filled borderline distended small bowel loops are present. Transition within the lower pelvic region noted. Retained contrast within numerous diverticuli of the distal descending and sigmoid colon noted. Small amount of pelvic ascites are evident. Right lower abdominal wall hernia defect containing nonstrangulated small bowel loop is present. This abdominal wall defect measures 2.6 cm transverse. Exaggerated lordosis of lumbar spine is present. Transitional L5 vertebra is noted. Severe disc space narrowing from T12 to L2 noted. Minimal retrolisthesis of L1 in relation L2 present. Cholecystectomy. Hysterectomy evident. Impression: Fibrotic findings the lung bases. Concern for usual interstitial pneumonia or idiopathic pulmonary fibrosis. Pleural effusions, greater on the right. Small amount of ascites. Anasarca. Distention of small bowel with transition in the right pelvic region compatible with small bowel obstruction. No radiopaque collecting system calculi. No evidence of collecting system obstruction. If underlying mass lesion is a persistent concern, consider CT of the kidneys with contrast for further evaluation. PQRS Compliance Statement: One or more of the following individualized dose reduction techniques were utilized for this examination: 1. Automated exposure control 2. Adjustment of the mA and/or kV according to patient size 3. Use of iterative reconstruction technique Electronically signed by: John Irving MD (12/02/2019 2:56 PM) [id number] Laboratory Tests Test 12/04/19 03:51 Sodium Level 141 mmol/L (136-145) Potassium Level 3.8 mmol/L (3.5-5.1) Chloride Level 108 mmol/L (98-107) Carbon Dioxide Level 23 mmol/L (21-32) Anion Gap 10 (6-14) Blood Urea Nitrogen 20 mg/dL (7-20) Creatinine 1.7 mg/dL (0.6-1.0) Estimated GFR (Cockcroft-Gault) 28.4 BUN/Creatinine Ratio 12 (6-20) Glucose Level 103 mg/dL (70-99) Calcium Level 7.6 mg/dL (8.5-10.1) Total Bilirubin 0.1 mg/dL (0.2-1.0) Aspartate Amino Transf (AST/SGOT) 19 U/L (15-37) Alanine Aminotransferase (ALT/SGPT) 17 U/L (14-59) Alkaline Phosphatase 71 U/L (46-116) Total Protein 5.2 g/dL (6.4-8.2) Albumin 2.3 g/dL (3.4-5.0) Albumin/Globulin Ratio 0.8 (1.0-1.7) Comment Review of Relevant I have reviewed the following items mercedes (where applicable) has been applied. Labs Laboratory Tests Test 12/02/19 13:15 12/04/19 03:51 Urine Collection Type Unknown Urine Color Yellow Urine Clarity Clear Urine pH 5.5 (<5.0-8.0) Urine Specific [place] 1.015 (1.000-1.030) Urine Protein 30 mg/dL (NEG-TRACE) Urine Glucose (UA) Negative mg/dL (NEG) Urine Ketones (Stick) Negative mg/dL (NEG) Urine Blood Large (NEG) Urine Nitrite Negative (NEG) Urine Bilirubin Negative (NEG) Urine Urobilinogen Dipstick 0.2 mg/dL (0.2 mg/dL) Urine Leukocyte Esterase Negative (NEG) Urine RBC >40 /HPF (0-2) Urine WBC 5-10 /HPF (0-4) Urine Bacteria 0 /HPF (0-FEW) Urine Hyaline Casts Few /HPF Urine Granular Casts Few /HPF Urine Mucus Slight /LPF Sodium Level 141 mmol/L (136-145) Potassium Level 3.8 mmol/L (3.5-5.1) Chloride Level 108 mmol/L (98-107) Carbon Dioxide Level 23 mmol/L (21-32) Anion Gap 10 (6-14) Blood Urea Nitrogen 20 mg/dL (7-20) Creatinine 1.7 mg/dL (0.6-1.0) Estimated GFR (Cockcroft-Gault) 28.4 BUN/Creatinine Ratio 12 (6-20) Glucose Level 103 mg/dL (70-99) Calcium Level 7.6 mg/dL (8.5-10.1) Total Bilirubin 0.1 mg/dL (0.2-1.0) Aspartate Amino Transf (AST/SGOT) 19 U/L (15-37) Alanine Aminotransferase (ALT/SGPT) 17 U/L (14-59) Alkaline Phosphatase 71 U/L (46-116) Total Protein 5.2 g/dL (6.4-8.2) Albumin 2.3 g/dL (3.4-5.0) Albumin/Globulin Ratio 0.8 (1.0-1.7) Laboratory Tests Test 12/04/19 03:51 Sodium Level 141 mmol/L (136-145) Potassium Level 3.8 mmol/L (3.5-5.1) Chloride Level 108 mmol/L (98-107) Carbon Dioxide Level 23 mmol/L (21-32) Anion Gap 10 (6-14) Blood Urea Nitrogen 20 mg/dL (7-20) Creatinine 1.7 mg/dL (0.6-1.0) Estimated GFR (Cockcroft-Gault) 28.4 BUN/Creatinine Ratio 12 (6-20) Glucose Level 103 mg/dL (70-99) Calcium Level 7.6 mg/dL (8.5-10.1) Total Bilirubin 0.1 mg/dL (0.2-1.0) Aspartate Amino Transf (AST/SGOT) 19 U/L (15-37) Alanine Aminotransferase (ALT/SGPT) 17 U/L (14-59) Alkaline Phosphatase 71 U/L (46-116) Total Protein 5.2 g/dL (6.4-8.2) Albumin 2.3 g/dL (3.4-5.0) Albumin/Globulin Ratio 0.8 (1.0-1.7) Medications Current Medications Ringer's Solution 1,000 ml @ 100 mls/hr Q10H IV Last administered on 11/24/19at 23:17; Start 11/24/19 at 22:43; Stop 11/25/19 at 19:26; Status DC Ondansetron HCl (Zofran) 4 mg PRN Q4HRS PRN IVP NAUSEA/VOMITING Last administered on 11/29/19at 03:36; Start 11/24/19 at 22:45 Morphine Sulfate (Morphine Sulfate) 2 mg PRN Q3HRS PRN IV PAIN Last administered on 11/27/19at 07:13; Start 11/24/19 at 22:45 Benzocaine (Hurricaine One) 1 spray 1X ONCE MM Last administered on 11/24/19at 23:17; Start 11/24/19 at 23:00; Stop 11/24/19 at 23:02; Status DC Hydralazine HCl (Apresoline Inj) 5 mg PRN Q6HRS PRN IVP ELEVATED BP, SEE COMMENTS; Start 11/25/19 at 00:45 Sodium Chloride 1,000 ml @ 125 mls/hr 1X ONCE IV Last administered on 11/25/19at 10:03; Start 11/25/19 at 09:30; Stop 11/25/19 at 17:29; Status DC Sodium Chloride 1,000 ml @ 100 mls/hr Q10H IV Last administered on 11/27/19at 21:19; Start 11/25/19 at 19:30; Stop 11/28/19 at 13:43; Status DC Lidocaine (Lidoderm) 1 patch DAILY TD Last administered on 12/01/19at 08:36; Start 11/26/19 at 09:45 Miscellaneous (Lidoderm Patch Removal) 1 ea QHS MC Last administered on 12/01/19at 21:00; Start 11/26/19 at 21:00 Heparin Sodium (Porcine) (Heparin Sodium) 5,000 unit Q8HRS SQ Last administered on 12/04/19at 06:25; Start 11/26/19 at 10:00 Albuterol Sulfate (Ventolin Neb Soln) 2.5 mg PRN Q6HRS PRN INH SHORTNESS OF BREATH; Start 11/26/19 at 09:45 Levothyroxine Sodium 50 mcg/ Sodium Chloride 5 ml @ 100 mls/hr Q3DAYS IV Last administered on 12/02/19at 09:11; Start 11/26/19 at 09:45; Stop 12/02/19 at 11:32; Status DC Iohexol (Omnipaque 300 Mg/ml) 400 ml 1X ONCE PO Last administered on 11/27/19at 07:00; Start 11/27/19 at 07:00; Stop 11/27/19 at 07:01; Status DC Info (CONTRAST GIVEN -- Rx MONITORING) 1 each PRN DAILY PRN MC SEE COMMENTS; Start 11/27/19 at 07:00; Stop 11/29/19 at 06:59; Status DC Metoclopramide HCl (Reglan Vial) 5 mg Q6HRS IVP Last administered on 12/03/19at 05:53; Start 11/28/19 at 00:00 Potassium Chloride/Dextrose/ Sod Cl 1,000 ml @ 100 mls/hr Q10H IV Last administered on 11/28/19at 00:00; Start 11/27/19 at 23:30; Stop 11/28/19 at 13:43; Status DC Fentanyl Citrate (Fentanyl 2ml Vial) 25 mcg PRN Q5MIN PRN IV MILD PAIN 1-3; Start 11/28/19 at 10:30; Stop 11/28/19 at 20:00; Status DC Fentanyl Citrate (Fentanyl 2ml Vial) 50 mcg PRN Q5MIN PRN IV MODERATE TO SEVERE PAIN; Start 11/28/19 at 10:30; Stop 11/28/19 at 20:00; Status DC Morphine Sulfate (Morphine Sulfate) 1 mg PRN Q10MIN PRN IV SEVERE PAIN 7-10; Start 11/28/19 at 10:30; Stop 11/28/19 at 20:00; Status DC Ringer's Solution 1,000 ml @ 30 mls/hr Q24H IV ; Start 11/28/19 at 10:29; Stop 11/28/19 at 22:28; Status DC Hydromorphone HCl (Dilaudid) 0.5 mg PRN Q10MIN PRN IV SEV PAIN, Second choice; Start 11/28/19 at 10:30; Stop 11/28/19 at 20:00; Status DC Sodium Chloride 1,000 ml @ 50 mls/hr Q20H IV Last administered on 12/01/19at 02:19; Start 11/28/19 at 14:00 Pantoprazole Sodium (Protonix) 40 mg DAILYAC PO Last administered on 12/03/19at 05:53; Start 11/30/19 at 07:30; Stop 12/03/19 at 08:14; Status DC Levothyroxine Sodium (Synthroid) 50 mcg DAILY06 PO Last administered on 12/04/19at 06:10; Start 12/03/19 at 06:00 Pantoprazole Sodium (Protonix) 40 mg BIDAC PO Last administered on 12/04/19at 07:55; Start 12/03/19 at 16:30 Active Scripts Active Reported Omeprazole 20 Mg Tablet.dr 1 Tab PO DAILY Levothyroxine Sodium 50 Mcg Tablet 50 Mcg PO DAILYAC Benefiber (Wheat Dextrin) 1 Each Powd.pack 1 Each PO BID Albuterol Sulfate Neb Soln (Albuterol Sulfate) 2.5 Mg/3 Ml Vial.neb 2.5 Mg NEB Pred Forte (Prednisolone Acetate) 1 Ml Drops.susp 1 Ml OP Proair Hfa Inhaler (Albuterol Sulfate) 8.5 Gm Hfa.aer.ad 1 Puff INH PRN Q6HRS PRN Losartan Potassium 50 Mg Tablet 1 Tab PO DAILY Hydroxychloroquine Sulfate 200 Mg Tablet 200 Mg PO DAILY Levothyroxine Sodium 50 Mcg Tablet 1 Tab PO DAILY Meloxicam 7.5 Mg Tablet 1 Tab PO DAILY Vitals/I & O Vital Sign - Last 24 Hours 12/03/19 12/03/19 12/03/19 12/03/19 11:59 15:52 19:00 20:00 Temp 98.4 97.4 97.6 98.4 97.4 97.6 Pulse 88 75 79 Resp 18 18 18 B/P (MAP) 106/50 (68) 105/52 (69) 116/51 (72) Pulse Ox 97 97 93 O2 Delivery Room Air Room Air Room Air 12/03/19 12/04/19 23:00 03:00 Temp 98.4 97.8 98.4 97.8 Pulse 72 79 Resp 16 16 B/P (MAP) 109/50 (69) 103/52 (69) Pulse Ox 94 95 Intake and Output 12/03/19 12/03/19 12/04/19 15:00 23:00 07:00 Intake Total 100 ml Balance 100 ml Nutrition Consultation Dietary Evaluation: Recommendations by RD: Dietary education by RD, Increase Calorie Intake, Protein supplementation Comments: ensure tid Expected Outcomes/Goals: to meet >75% est nutr needs Malnutrition Findings: Body Fat Depletion (Non Severe: Mild Depletion Weight Status: Underweight Justicifation of Admission Dx: Justifications for Admission: Justification of Admission Dx: Yes FRANKLYN VALENCIA MD Dec 04, 2019 08:00
--- NOTE | 2019-12-04 10:05 | PDOC ---
SURGICAL PROGRESS NOTE Subjective tolerating diet reports stooling no significant abdominal pain Vital Signs Vital Signs Date Time Temp Pulse Resp B/P (MAP) Pulse Ox O2 Delivery O2 Flow Rate FiO2 12/04/19 03:00 97.8 79 16 103/52 (69) 95 97.8 12/03/19 20:00 Room Air I&O Intake and Output 12/04/19 07:00 Intake Total 100 ml Balance 100 ml Intake Oral 100 ml # Voids 5 General: Alert, Oriented X3, Cooperative Abdomen: Soft, No tenderness Labs Laboratory Tests Test 12/02/19 13:15 12/04/19 03:51 Urine Collection Type Unknown Urine Color Yellow Urine Clarity Clear Urine pH 5.5 (<5.0-8.0) Urine Specific [place] 1.015 (1.000-1.030) Urine Protein 30 mg/dL (NEG-TRACE) Urine Glucose (UA) Negative mg/dL (NEG) Urine Ketones (Stick) Negative mg/dL (NEG) Urine Blood Large (NEG) Urine Nitrite Negative (NEG) Urine Bilirubin Negative (NEG) Urine Urobilinogen Dipstick 0.2 mg/dL (0.2 mg/dL) Urine Leukocyte Esterase Negative (NEG) Urine RBC >40 /HPF (0-2) Urine WBC 5-10 /HPF (0-4) Urine Bacteria 0 /HPF (0-FEW) Urine Hyaline Casts Few /HPF Urine Granular Casts Few /HPF Urine Mucus Slight /LPF Sodium Level 141 mmol/L (136-145) Potassium Level 3.8 mmol/L (3.5-5.1) Chloride Level 108 mmol/L (98-107) Carbon Dioxide Level 23 mmol/L (21-32) Anion Gap 10 (6-14) Blood Urea Nitrogen 20 mg/dL (7-20) Creatinine 1.7 mg/dL (0.6-1.0) Estimated GFR (Cockcroft-Gault) 28.4 BUN/Creatinine Ratio 12 (6-20) Glucose Level 103 mg/dL (70-99) Calcium Level 7.6 mg/dL (8.5-10.1) Total Bilirubin 0.1 mg/dL (0.2-1.0) Aspartate Amino Transf (AST/SGOT) 19 U/L (15-37) Alanine Aminotransferase (ALT/SGPT) 17 U/L (14-59) Alkaline Phosphatase 71 U/L (46-116) Total Protein 5.2 g/dL (6.4-8.2) Albumin 2.3 g/dL (3.4-5.0) Albumin/Globulin Ratio 0.8 (1.0-1.7) Laboratory Tests Test 12/04/19 03:51 Sodium Level 141 mmol/L (136-145) Potassium Level 3.8 mmol/L (3.5-5.1) Chloride Level 108 mmol/L (98-107) Carbon Dioxide Level 23 mmol/L (21-32) Anion Gap 10 (6-14) Blood Urea Nitrogen 20 mg/dL (7-20) Creatinine 1.7 mg/dL (0.6-1.0) Estimated GFR (Cockcroft-Gault) 28.4 BUN/Creatinine Ratio 12 (6-20) Glucose Level 103 mg/dL (70-99) Calcium Level 7.6 mg/dL (8.5-10.1) Total Bilirubin 0.1 mg/dL (0.2-1.0) Aspartate Amino Transf (AST/SGOT) 19 U/L (15-37) Alanine Aminotransferase (ALT/SGPT) 17 U/L (14-59) Alkaline Phosphatase 71 U/L (46-116) Total Protein 5.2 g/dL (6.4-8.2) Albumin 2.3 g/dL (3.4-5.0) Albumin/Globulin Ratio 0.8 (1.0-1.7) Assessment/Plan sbo resolved no surgical recs medical therapy available as needed Justicifation of Admission Dx: Justifications for Admission: Justification of Admission Dx: Yes [employer] Dec 04, 2019 10:05
[2019-12-04 11:00] VITALS: BP 130/60
--- NOTE | 2019-12-04 11:40 | NUR ---
SS following up with discharge planning. SS reviewed pt chart and discussed with pt RN and physician. Pt is currently on room air. Pt requesting to return to home today. Physician requesting hospital transfer to [facility] for urology consult. SS discussed with physician as pt is declining inpatient transfer. Physician requested assistance with setting pt up with outpatient urology appt. SS contacted [facility] urology and was notified that they are out of network with pt's insurance. SS contacted Urology and was notified that they do accept pt's insurance. SS phoned and faxed referral to Urology, ; fax [phone]. Urology reported that once referral is received they will contact pt to schedule an appointment and will notify SS of appointment day and time. Pt's RN and physician notified. SS will continue to follow for discharge planning.
--- NOTE | 2019-12-04 11:51 | PDOC ---
Subjective: Subjective: Eating and stooling with "just a little" abdominal pain. Says much better. Objective: Vital Signs: Vital Signs Date Time Temp Pulse Resp B/P (MAP) Pulse Ox O2 Delivery O2 Flow Rate FiO2 12/04/19 07:00 97.9 80 18 134/64 (87) 94 Room Air 97.9 Labs: Laboratory Tests Test 12/04/19 03:51 Sodium Level 141 mmol/L Potassium Level 3.8 mmol/L Chloride Level 108 mmol/L Carbon Dioxide Level 23 mmol/L Anion Gap 10 Blood Urea Nitrogen 20 mg/dL Creatinine 1.7 mg/dL Estimated GFR (Cockcroft-Gault) 28.4 BUN/Creatinine Ratio 12 Glucose Level 103 mg/dL Calcium Level 7.6 mg/dL Total Bilirubin 0.1 mg/dL Aspartate Amino Transf (AST/SGOT) 19 U/L Alanine Aminotransferase (ALT/SGPT) 17 U/L Alkaline Phosphatase 71 U/L Total Protein 5.2 g/dL Albumin 2.3 g/dL Albumin/Globulin Ratio 0.8 URINE CULTURE Final Final No Growth on 12/04/19 at 0943 Imaging: CT A/P 12/01 Impression: Fibrotic findings the lung bases. Concern for usual interstitial pneumonia or idiopathic pulmonary fibrosis. Pleural effusions, greater on the right. Small amount of ascites. Anasarca. Distention of small bowel with transition in the right pelvic region compatible with small bowel obstruction. No radiopaque collecting system calculi. No evidence of collecting system obstruction. If underlying mass lesion is a persistent concern, consider CT of the kidneys with contrast for further evaluation. Chest CT 12/02 IMPRESSION: 1. Constellation of findings are most suggestive of interstitial lung disease as may be seen with usual interstitial pneumonia or fibrotic-type nonspecific interstitial pneumonia. 2. Small right and trace left pleural effusions. 3. Three-vessel coronary artery vascular calcifications. PE: GEN: NAD - up in chair, talking on the phone LUNGS: CTAB HEART: RRR ABD: non-distended NEURO/PSYCH: A & O 3 A/P: SBO - resolved -- Better from GI standpoint. DC per primary. Justicifation of Admission Dx: Justifications for Admission: Justification of Admission Dx: Yes MAYUR JORDAN Dec 04, 2019 11:51
[2019-12-04 15:00] VITALS: BP 117/56
--- NOTE | 2019-12-04 15:17 | PDOC ---
Renal-Progress Notes Subjective Notes Notes FEELING BETTER, EATING SOME History of Present Illness Hx of present illness STABLE Vitals Vitals Vital Signs Date Time Temp Pulse Resp B/P (MAP) Pulse Ox O2 Delivery O2 Flow Rate FiO2 12/04/19 11:00 97.7 80 18 130/60 (83) 94 Room Air 97.7 Weight Weight [ ] I.O. Intake and Output Intake and Output 12/04/19 07:00 Intake Total 100 ml Balance 100 ml Intake Oral 100 ml # Voids 5 Labs Labs Laboratory Tests Test 12/04/19 03:51 Sodium Level 141 mmol/L (136-145) Potassium Level 3.8 mmol/L (3.5-5.1) Chloride Level 108 mmol/L (98-107) Carbon Dioxide Level 23 mmol/L (21-32) Anion Gap 10 (6-14) Blood Urea Nitrogen 20 mg/dL (-20) Creatinine 1.7 mg/dL (0.6-1.0) Estimated GFR (Cockcroft-Gault) 28.4 BUN/Creatinine Ratio 12 (6-20) Glucose Level 103 mg/dL (70-99) Calcium Level 7.6 mg/dL (8.5-10.1) Total Bilirubin 0.1 mg/dL (0.2-1.0) Aspartate Amino Transf (AST/SGOT) 19 U/L (15-37) Alanine Aminotransferase (ALT/SGPT) 17 U/L (14-59) Alkaline Phosphatase 71 U/L (46-116) Total Protein 5.2 g/dL (6.4-8.2) Albumin 2.3 g/dL (3.4-5.0) Albumin/Globulin Ratio 0.8 (1.0-1.7) Micro Micro Microbiology 12/02/19 Urine Culture - Final, Complete Review of Systems Constitutional: yes: alert Ears/Nose/Throat: Yes: no symptom reported Eyes: Yes: no symptom reported Pulmonary: Yes no symptom reported Gastrointestional: Yes: nausea Musculoskeletal: Yes: no symptom reported Skin: Yes no symptom reported Psychiatric/Neurological: Yes: no symptom reported Endocrine: Yes: no symptom reported Physical Exam General Appearance: no apparent distress Heart: S1S2, no thrills Abdomen: soft Genitourinary: bladder flat Extremities: pulses present Neurology: alert, oriented Assessment Assessment IMP SBO-RESOLVING BRITTANI-IMPROVING WITH CR OFF 1.7 FROM 2.5 PROB CKD STAGE 3 DEHYDRATION PLAN ENC PO HYDRATION NEEDED LABS IN AM WILL FOLLOW [facility] MD Dec 04, 2019 15:17
--- NOTE | 2019-12-04 16:33 | PDOC ---
PULMONARY PROGRESS NOTES Subjective Patient short of air and cough short of air with exertion mostly. Cough is nonproductive no chest pain no pressure Vitals Vital Signs Date Time Temp Pulse Resp B/P (MAP) Pulse Ox O2 Delivery O2 Flow Rate FiO2 12/04/19 11:00 97.7 80 18 130/60 (83) 94 Room Air 97.7 ROS: No Nausea, No Chest Pain, No Abdominal Pain, No Increase Cough Lungs: Crackles, Other (Velcro type of rales) Cardiovascular: S1, S2 Abdomen: Soft Neuro Exam: Alert Extremities: No Edema Skin: Warm Labs Laboratory Tests Test 12/04/19 03:51 Sodium Level 141 mmol/L (136-145) Potassium Level 3.8 mmol/L (3.5-5.1) Chloride Level 108 mmol/L (98-107) Carbon Dioxide Level 23 mmol/L (21-32) Anion Gap 10 (6-14) Blood Urea Nitrogen 20 mg/dL (7-20) Creatinine 1.7 mg/dL (0.6-1.0) Estimated GFR (Cockcroft-Gault) 28.4 BUN/Creatinine Ratio 12 (6-20) Glucose Level 103 mg/dL (70-99) Calcium Level 7.6 mg/dL (8.5-10.1) Total Bilirubin 0.1 mg/dL (0.2-1.0) Aspartate Amino Transf (AST/SGOT) 19 U/L (15-37) Alanine Aminotransferase (ALT/SGPT) 17 U/L (14-59) Alkaline Phosphatase 71 U/L (46-116) Total Protein 5.2 g/dL (6.4-8.2) Albumin 2.3 g/dL (3.4-5.0) Albumin/Globulin Ratio 0.8 (1.0-1.7) Laboratory Tests Test 12/04/19 03:51 Sodium Level 141 mmol/L (136-145) Potassium Level 3.8 mmol/L (3.5-5.1) Chloride Level 108 mmol/L (98-107) Carbon Dioxide Level 23 mmol/L (21-32) Anion Gap 10 (6-14) Blood Urea Nitrogen 20 mg/dL (7-20) Creatinine 1.7 mg/dL (0.6-1.0) Estimated GFR (Cockcroft-Gault) 28.4 BUN/Creatinine Ratio 12 (6-20) Glucose Level 103 mg/dL (70-99) Calcium Level 7.6 mg/dL (8.5-10.1) Total Bilirubin 0.1 mg/dL (0.2-1.0) Aspartate Amino Transf (AST/SGOT) 19 U/L (15-37) Alanine Aminotransferase (ALT/SGPT) 17 U/L (14-59) Alkaline Phosphatase 71 U/L (46-116) Total Protein 5.2 g/dL (6.4-8.2) Albumin 2.3 g/dL (3.4-5.0) Albumin/Globulin Ratio 0.8 (1.0-1.7) Medications Active Scripts Medications Dose Route/Sig Max Daily Dose Days Date Category Omeprazole 20 Mg Tablet.dr 1 Tab PO DAILY 11/25/19 Reported Levothyroxine Sodium 50 Mcg Tablet 50 Mcg PO DAILYAC 11/25/19 Reported Benefiber (Wheat Dextrin) 1 Each Powd.pack 1 Each PO BID 11/25/19 Reported Albuterol Sulfate Neb Soln (Albuterol Sulfate) 2.5 Mg/3 Ml Vial.neb 2.5 Mg NEB 08/23/17 Reported Pred Forte (Prednisolone Acetate) 1 Ml Drops.susp 1 Ml OP 08/23/17 Reported Proair Hfa Inhaler (Albuterol Sulfate) 8.5 Gm Hfa.aer.ad 1 Puff INH PRN Q6HRS PRN 08/23/17 Reported Losartan Potassium 50 Mg Tablet 1 Tab PO DAILY 10/26/14 Reported Hydroxychloroquine Sulfate 200 Mg Tablet 200 Mg PO DAILY 10/26/14 Reported Levothyroxine Sodium 50 Mcg Tablet 1 Tab PO DAILY 10/26/14 Reported Meloxicam 7.5 Mg Tablet 1 Tab PO DAILY 10/26/14 Reported Impression . IMPRESSION: 1. Pulmonary fibrosis/interstitial lung disease 2. Cough secondary to above possible reflux 3. Gastroesophageal reflux disease. 4. Small-bowel obstruction. 5. Arthritis. Details are not known. 6. Hypertension. 7. Hypothyroidism. 8. Acute kidney injury. CT chest report IMPRESSION: 1. Constellation of findings are most suggestive of interstitial lung disease as may be seen with usual interstitial pneumonia or fibrotic-type nonspecific interstitial pneumonia. 2. Small right and trace left pleural effusions. 3. Three-vessel coronary artery vascular calcifications. Plan . 6-minute walk prior to discharge Outpatient work-up for autoimmune disease Full PFTs as an outpatient Follow-up in my office once discharged, okay to discharge in the a.m. 12/04 SONU SOTO MD Dec 04, 2019 16:33
--- NOTE | 2019-12-04 17:10 | PDOC3 ---
Discharge Summary Date of Admission: Nov 25, 2019 Date of Discharge: Dec 04, 2019 Follow-Up: 3-5 days Admitting Diagnosis comment: discharge dx SBO - cont adat, pain control IV, f/u surgery recs Distended small bowel loops are present with transition within the lower pelvic region. Very distal small bowel is decompressed. Prolonged transit of contrast through the stomach and small bowel. Possibility of low-grade, partial, or intermittent obstruction at the lower pelvic, right distal small bowel region is is raised 12/01 ct Moderate size right pleural effusion present. Small left pleural effusion noted. Extensive honeycombing in the lung bases is present. Interstitial thickening lung sánchez noted. Minimal ascites about the liver noted No radiopaque collecting system calculi. ct 12/01 Moderate gaseous distention of stomach noted. Fluid-filled borderline distended small bowel loops are present. Transition within the lower pelvic region noted. Right lower abdominal wall hernia defect containing nonstrangulated small bowel loop is present. This abdominal wall defect measures 2.6 cm transverse. Exaggerated lordosis of lumbar spine is present. Transitional L5 vertebra is noted. Severe disc space narrowing from T12 to L2 noted. Minimal retrolisthesis of L1 in relation L2 present. Fibrotic findings the lung bases. Concern for usual interstitial pneumonia or idiopathic pulmonary fibrosis. Distention of small bowel with transition in the right pelvic region compatible with small bowel obstruction. BRITTANI - vasomotor nephropathy Severe protein calorie malnutrition Small sliding hiatal hernia with gastroesophageal reflux. Diverticulosis of the colon. Hypothyroidism - IV to po HTN GERD Coronary artery calcification Bibasilar pulmonary fibrotic changes on chest x-ray BRITTANI - ATN , Improving Baseline in 2014 was normal no interval labs Supportive care, Avoid nephrotoxins ,FU with PCP post dc CKD - Renal cortices echogenic on US Micr hematuria at presentation , ? Not sure if Lamb sample, No e/o UTI Repeat UA, if persistent Micr hematuria- Consult urology ua c/w hematuria 12/02 PLAN FEN - liquid diet PPX - Lovenox FULL CODE Dispo - inpatient small bowel series 11/26 continue diet trial and observe. gi consult noted NEPHROLOGY following ct abd/ pelvis w/o contrast due to persistent hematuria 12/01 pulmonary consult 7/18 RE . Fibrotic findings the lung bases. Concern for usual interstitial pneumonia or idiopathic pulmonary fibrosis. INC PROTONIX TO BID NEEDS UROLOGY CONSULT , PLAN case management making [facility] UROLOGY APPT SAMIA D/W HER BY TEXT 12/03 OK FOR D/C PER GI /SURGERY 11/30 starting to eat soft foods CT ABD R/O URETERAL STONES D/W RN NEEDS UROLOGY REFERRAL SAMIA , CAN BE DONE OUTPT, NEEDS TO BE SOON D/W CASE ,MGT 34 MIN D/C PLANNING MIN pt exam, chart review, > 50% of time spent with exam, chart review, pt care coordination History of Present Illness History of Present Illness Sr Al is an 88 yo Sister of Idania and lives with her community in [place] w/ PMHx GERD, Hypothyroidism, HTN. She awoke in the middle of the night 11/24/2019 with severe mid abdominal pain and projectile vomiting. She presented to the [facility] Emergency Department for evaluation and was found to have small bowel obstruction and transferred to [facility]. Creatinine noted 2.7, which had improved overnight to 2.3 with intravenous hydration. The patient denied any history of renal failure. CR improved to 2.2. No vomiting overnight still with pain states she passed gas. Now has some left-sided back pain was not able to sleep well. Afebrile no shortness of breath or cough. KUB with SBO. CXR with worsening basilar fibrotic changes. Vitals Vitals Vital Signs Date Time Temp Pulse Resp B/P (MAP) Pulse Ox O2 Delivery O2 Flow Rate FiO2 12/04/19 03:00 97.8 79 16 103/52 (69) 95 97.8 12/03/19 20:00 Room Air Physical Exam General: Alert, Oriented X3, No acute distress Heart: Regular rate, Normal S1, Normal S2 Lungs: Clear Abdomen: Normal bowel sounds, Soft, No tenderness Extremities: No clubbing, No cyanosis Skin: No rashes, No breakdown Labs LABS SEX: F EXAM STATUS: ADM IN ORD. PHYSICIAN: FRANKLYN VALENCIA MD REASON: hematuria PROCEDURE: CT ABDOMEN PELVIS WO CONTRAST Examination: CT ABDOMEN PELVIS WO CONTRAST History: Reason: hematuria / Spl. Instructions: / History: Comparison/Correlation: 11/29/2019 renal ultrasound exam, 12/08/2018 CT chest abdomen pelvis with contrast, 11/24/2019 CT abdomen and pelvis with oral contrast only Findings: Axial images of the abdomen and pelvis were obtained without contrast. Sagittal and coronal reformatted images were widened. Marked calcification of the visualized coronary arteries is present. Moderate size right pleural effusion present. Small left pleural effusion noted. Extensive honeycombing in the lung bases is present. Interstitial thickening lung sánchez noted. Minimal ascites about the liver noted. Unenhanced liver, spleen, pancreas, and adrenal glands are normal. Minimal ascites in the paracolic gutter is noted. Anasarca noted. No radiopaque collecting system calculi. Moderate gaseous distention of stomach noted. Fluid-filled borderline distended small bowel loops are present. Transition within the lower pelvic region noted. Retained contrast within numerous diverticuli of the distal descending and sigmoid colon noted. Small amount of pelvic ascites are evident. Right lower abdominal wall hernia defect containing nonstrangulated small bowel loop is present. This abdominal wall defect measures 2.6 cm transverse. Exaggerated lordosis of lumbar spine is present. Transitional L5 vertebra is noted. Severe disc space narrowing from T12 to L2 noted. Minimal retrolisthesis of L1 in relation L2 present. Cholecystectomy. Hysterectomy evident. Impression: Fibrotic findings the lung bases. Concern for usual interstitial pneumonia or idiopathic pulmonary fibrosis. Pleural effusions, greater on the right. Small amount of ascites. Anasarca. Distention of small bowel with transition in the right pelvic region compatible with small bowel obstruction. No radiopaque collecting system calculi. No evidence of collecting system obstruction. If underlying mass lesion is a persistent concern, consider CT of the kidneys with contrast for further evaluation. PQRS Compliance Statement: One or more of the following individualized dose reduction techniques were utilized for this examination: 1. Automated exposure control 2. Adjustment of the mA and/or kV according to patient size 3. Use of iterative reconstruction technique Electronically signed by: John Irving MD (12/02/2019 2:56 PM) [facility] Ms. Al is a 88 old [sex] who presented with [SBO] CONDITION AT DISCHARGE: Improved Discharge Medications Current Medications Ringer's Solution 1,000 ml @ 100 mls/hr Q10H IV Last administered on 11/24/19at 23:17; Start 11/24/19 at 22:43; Stop 11/25/19 at 19:26; Status DC Ondansetron HCl (Zofran) 4 mg PRN Q4HRS PRN IVP NAUSEA/VOMITING Last administered on 11/29/19at 03:36; Start 11/24/19 at 22:45 Morphine Sulfate (Morphine Sulfate) 2 mg PRN Q3HRS PRN IV PAIN Last administered on 11/27/19at 07:13; Start 11/24/19 at 22:45 Benzocaine (Hurricaine One) 1 spray 1X ONCE MM Last administered on 11/24/19at 23:17; Start 11/24/19 at 23:00; Stop 11/24/19 at 23:02; Status DC Hydralazine HCl (Apresoline Inj) 5 mg PRN Q6HRS PRN IVP ELEVATED BP, SEE C OMMENTS; Start 11/25/19 at 00:45 Sodium Chloride 1,000 ml @ 125 mls/hr 1X ONCE IV Last administered on 11/25/19at 10:03; Start 11/25/19 at 09:30; Stop 11/25/19 at 17:29; Status DC Sodium Chloride 1,000 ml @ 100 mls/hr Q10H IV Last administered on 11/27/19at 21:19; Start 11/25/19 at 19:30; Stop 11/28/19 at 13:43; Status DC Lidocaine (Lidoderm) 1 patch DAILY TD Last administered on 12/01/19at 08:36; Start 11/26/19 at 09:45 Miscellaneous (Lidoderm Patch Removal) 1 ea QHS MC Last administered on 12/01/19at 21:00; Start 11/26/19 at 21:00 Heparin Sodium (Porcine) (Heparin Sodium) 5,000 unit Q8HRS SQ Last administered on 12/04/19at 14:05; Start 11/26/19 at 10:00 Albuterol Sulfate (Ventolin Neb Soln) 2.5 mg PRN Q6HRS PRN INH SHORTNESS OF BREATH; Start 11/26/19 at 09:45 Levothyroxine Sodium 50 mcg/ Sodium Chloride 5 ml @ 100 mls/hr Q3DAYS IV Last administered on 12/02/19at 09:11; Start 11/26/19 at 09:45; Stop 12/02/19 at 11:32; Status DC Iohexol (Omnipaque 300 Mg/ml) 400 ml 1X ONCE PO Last administered on 11/27/19at 07:00; Start 11/27/19 at 07:00; Stop 11/27/19 at 07:01; Status DC Info (CONTRAST GIVEN -- Rx MONITORING) 1 each PRN DAILY PRN MC SEE COMMENTS; Start 11/27/19 at 07:00; Stop 11/29/19 at 06:59; Status DC Metoclopramide HCl (Reglan Vial) 5 mg Q6HRS IVP Last administered on 12/03/19at 05:53; Start 11/28/19 at 00:00 Potassium Chloride/Dextrose/ Sod Cl 1,000 ml @ 100 mls/hr Q10H IV Last administered on 11/28/19at 00:00; Start 11/27/19 at 23:30; Stop 11/28/19 at 13:43; Status DC Fentanyl Citrate (Fentanyl 2ml Vial) 25 mcg PRN Q5MIN PRN IV MILD PAIN 1-3; Start 11/28/19 at 10:30; Stop 11/28/19 at 20:00; Status DC Fentanyl Citrate (Fentanyl 2ml Vial) 50 mcg PRN Q5MIN PRN IV MODERATE TO SEVERE PAIN; Start 11/28/19 at 10:30; Stop 11/28/19 at 20:00; Status DC Morphine Sulfate (Morphine Sulfate) 1 mg PRN Q10MIN PRN IV SEVERE PAIN 7-10; Start 11/28/19 at 10:30; Stop 11/28/19 at 20:00; Status DC Ringer's Solution 1,000 ml @ 30 mls/hr Q24H IV ; Start 11/28/19 at 10:29; Stop 11/28/19 at 22:28; Status DC Hydromorphone HCl (Dilaudid) 0.5 mg PRN Q10MIN PRN IV SEV PAIN, Second choice; Start 11/28/19 at 10:30; Stop 11/28/19 at 20:00; Status DC Sodium Chloride 1,000 ml @ 50 mls/hr Q20H IV Last administered on 12/01/19at 02:19; Start 11/28/19 at 14:00 Pantoprazole Sodium (Protonix) 40 mg DAILYAC PO Last administered on 12/03/19at 05:53; Start 11/30/19 at 07:30; Stop 12/03/19 at 08:14; Status DC Levothyroxine Sodium (Synthroid) 50 mcg DAILY06 PO Last administered on 12/04/19at 06:10; Start 12/03/19 at 06:00 Pantoprazole Sodium (Protonix) 40 mg BIDAC PO Last administered on 12/04/19at 17:05; Start 12/03/19 at 16:30 Active Scripts Active Reported Omeprazole 20 Mg Tablet.dr 1 Tab PO DAILY Levothyroxine Sodium 50 Mcg Tablet 50 Mcg PO DAILYAC Benefiber (Wheat Dextrin) 1 Each Powd.pack 1 Each PO BID Albuterol Sulfate Neb Soln (Albuterol Sulfate) 2.5 Mg/3 Ml Vial.neb 2.5 Mg NEB Pred Forte (Prednisolone Acetate) 1 Ml Drops.susp 1 Ml OP Proair Hfa Inhaler (Albuterol Sulfate) 8.5 Gm Hfa.aer.ad 1 Puff INH PRN Q6HRS PRN Losartan Potassium 50 Mg Tablet 1 Tab PO DAILY Hydroxychloroquine Sulfate 200 Mg Tablet 200 Mg PO DAILY Levothyroxine Sodium 50 Mcg Tablet 1 Tab PO DAILY Meloxicam 7.5 Mg Tablet 1 Tab PO DAILY Vital Signs Vital Signs Date Time Temp Pulse Resp B/P (MAP) Pulse Ox O2 Delivery O2 Flow Rate FiO2 12/04/19 15:00 98.3 60 18 117/56 (76) 95 Room Air 98.3 Labs Laboratory Tests Test 12/04/19 03:51 Sodium Level 141 mmol/L (136-145) Potassium Level 3.8 mmol/L (3.5-5.1) Chloride Level 108 mmol/L (98-107) Carbon Dioxide Level 23 mmol/L (21-32) Anion Gap 10 (6-14) Blood Urea Nitrogen 20 mg/dL (7-20) Creatinine 1.7 mg/dL (0.6-1.0) Estimated GFR (Cockcroft-Gault) 28.4 BUN/Creatinine Ratio 12 (6-20) Glucose Level 103 mg/dL (70-99) Calcium Level 7.6 mg/dL (8.5-10.1) Total Bilirubin 0.1 mg/dL (0.2-1.0) Aspartate Amino Transf (AST/SGOT) 19 U/L (15-37) Alanine Aminotransferase (ALT/SGPT) 17 U/L (14-59) Alkaline Phosphatase 71 U/L (46-116) Total Protein 5.2 g/dL (6.4-8.2) Albumin 2.3 g/dL (3.4-5.0) Albumin/Globulin Ratio 0.8 (1.0-1.7) Laboratory Tests Test 12/04/19 03:51 Sodium Level 141 mmol/L (136-145) Potassium Level 3.8 mmol/L (3.5-5.1) Chloride Level 108 mmol/L (98-107) Carbon Dioxide Level 23 mmol/L (21-32) Anion Gap 10 (6-14) Blood Urea Nitrogen 20 mg/dL (7-20) Creatinine 1.7 mg/dL (0.6-1.0) Estimated GFR (Cockcroft-Gault) 28.4 BUN/Creatinine Ratio 12 (6-20) Glucose Level 103 mg/dL (70-99) Calcium Level 7.6 mg/dL (8.5-10.1) Total Bilirubin 0.1 mg/dL (0.2-1.0) Aspartate Amino Transf (AST/SGOT) 19 U/L (15-37) Alanine Aminotransferase (ALT/SGPT) 17 U/L (14-59) Alkaline Phosphatase 71 U/L (46-116) Total Protein 5.2 g/dL (6.4-8.2) Albumin 2.3 g/dL (3.4-5.0) Albumin/Globulin Ratio 0.8 (1.0-1.7) Allergies Allergies Coded Allergies Type Severity Reaction Last Updated Verified No Known Drug Allergies 10/26/14 No Disposition/Orders: D/C to Home w/ HH Justicifation of Admission Dx: Justifications for Admission: Justification of Admission Dx: Yes FRANKLYN VALENCIA MD Dec 04, 2019 17:10
[2019-12-04] MEDS ORDERED: LIDO700A21 TD (17:12)
[2019-12-04] MEDS ORDERED: LEVO50TA5 PO (17:12)
--- NOTE | 2019-12-04 17:15 | SNU/HH DC ---
DISCHARGE WITH HOME HEALTH DISCHARGE INFORMATION: Condition on Discharge: Stable CODE STATUS: Code Status: Full HOME HEALTH: Face to Face: I certify this patient is under my care and that I, or a nurse practitioner or physician's bacteriology research assistant working with me, had a face to face encounter that meets the physician face to face encounter requirements with this patient on []. Medical Complications: DJD, Other (SMALL BOWEL OBSTRUCTION) Alf For: Assess Cardiopulm Status, Assess & Educate Safety, Assess/Skilled Observatio, Bowel/Bladder Training, Medication Management, Pain Management RN For Eval/Treatment: Yes Physical Therapy For: Evalulation/Treatment Occupational Therapy For: Evaluation/Treatment Speech Language Pathology For: Evaluation/Treatment Home Health Aide For: Self-care WAX BALL MOLDER For: Community Resources Pt Meets Homebound Status: Unsteady balance w/ amb, POST DISCHARGE ORDERS: Activity Instructions for Disc: Activity as tolerated Weight Bearing Status after Di: Non weight bearing DIET AFTER DISCHARGE: Cardiac CHECKS AFTER DISCHARGE: Checks after discharge: Check blood press - daily TREATMENT/EQUIPMENT ORDERS: Adaptive Equipment Issued: Front wheeled walker CERTIFICATION STATEMENT: Certification Statement: Certification Statement: Based on the above finding, I certify that this patient is confined to the home and needs intermittent shelter care, physical therapy and/or speech therapy, or continues to need occupational therapy.~ This patient is under my care, and I have initiated the establishment of the plan of care.~ This patient will be followed by myself or a community physician who will periodically review the plan of care. Home Meds Active Scripts Lidocaine (Lidocaine PATCH ) 1 Each Adh..patch, 1 PATCH TD DAILY for PAIN for 30 Days, #30 PATCH Prov:FRANKLYN VALENCIA MD 12/04/19 Levothyroxine Sodium (LEVOTHYROXINE SODIUM) 50 Mcg Tablet, 50 MCG PO DAILY06 for THYROID for 30 Days, #30 TAB Prov:FRANKLYN VALENCIA MD 12/04/19 Reported Medications Omeprazole (OMEPRAZOLE) 20 Mg Tablet.dr, 1 TAB PO DAILY for GERD, #90 TAB 1 Refill 11/25/19 Wheat Dextrin (Benefiber) 1 Each Powd.pack, 1 EACH PO BID for Fiber supplement, PKT 11/25/19 Albuterol Sulfate (ALBUTEROL SULFATE NEB SOLN) 2.5 Mg/3 Ml Vial.neb, 2.5 MG NEB for FOR ASTHMA, EACH 0 Refills 08/23/17 Prednisolone Acetate (PRED FORTE) 1 Ml Drops.susp, 1 ML OP, DROP 08/23/17 Albuterol Sulfate (PROAIR HFA INHALER) 8.5 Gm Hfa.aer.ad, 1 PUFF INH PRN Q6HRS PRN for SHORTNESS OF BREATH, INHALER 0 Refills 08/23/17 Hydroxychloroquine Sulfate (HYDROXYCHLOROQUINE SULFATE) 200 Mg Tablet, 200 MG PO DAILY, TAB 10/26/14 Discontinued Reported Medications Levothyroxine Sodium (LEVOTHYROXINE SODIUM) 50 Mcg Tablet, 50 MCG PO DAILYAC for THYROID SUPPLEMENT, #30 TAB 0 Refills 11/25/19 Losartan Potassium (LOSARTAN POTASSIUM) 50 Mg Tablet, 1 TAB PO DAILY, #30 TAB 5 Refills 10/26/14 Levothyroxine Sodium (LEVOTHYROXINE SODIUM) 50 Mcg Tablet, 1 TAB PO DAILY, #90 TAB 1 Refill 10/26/14 Meloxicam (MELOXICAM) 7.5 Mg Tablet, 1 TAB PO DAILY, #30 TAB 2 Refills 10/26/14 FRANKLYN VALENCIA MD Dec 04, 2019 17:15
--- NOTE | 2019-12-04 19:14 | NUR ---
Discharge to home per w/c accompanied by another sister from mother house, belongings taken with her, see discharge sheet for details
== END 2019-12-04 19:17 | disposition home health service (06) | DRG 388 ==
LOC: 4 NORTH 22:39
PROVIDERS: ADMIT Internal Medicine; ATTEND Internal Medicine
DX: K56.609 Unspecified intestinal obstruction, unspecified as to partial versus complete obstruction (principal); N17.0 Acute kidney failure with tubular necrosis; E43 Unspecified severe protein-calorie malnutrition; Z68.1 Body mass index [BMI] 19.9 or less, adult; D64.9 Anemia, unspecified; E03.9 Hypothyroidism, unspecified; E78.5 Hyperlipidemia, unspecified; E86.0 Dehydration; R31.29 Other microscopic hematuria; K57.30 Diverticulosis of large intestine without perforation or abscess without bleeding; M19.90 Unspecified osteoarthritis, unspecified site; I12.9 Hypertensive chronic kidney disease with stage 1 through stage 4 chronic kidney disease, or unspecified chronic kidney disease; N18.9 Chronic kidney disease, unspecified; K21.9 Gastro-esophageal reflux disease without esophagitis; J84.10 Pulmonary fibrosis, unspecified; K44.9 Diaphragmatic hernia without obstruction or gangrene; Z82.49 Family history of ischemic heart disease and other diseases of the circulatory system; Z87.11 Personal history of peptic ulcer disease; Z90.710 Acquired absence of both cervix and uterus
CPT/HCPCS: 36415; 71046; 71250; 74018; 74176; 74250; 76770; 80048; 80053; 80069; 81001; 83735; 85025; 87086; 94760; J1644; J2270; J2405; J2765; J3480; J3490; J7030; J7120; Q9967; 97110-GP; 97116-GP; 97535-GO; G0378